=== PATIENT | female | born 1980 ===

== ENCOUNTER 2016-08-22 19:25 | Emergency (ER) | payer MEDICAID ==
--- NOTE | 2016-08-22 19:46 | ED PDOC ---
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 Patient stated while in her bathroom, glass door shattered, causing elbow laceration. Last Tetanus is [place]. Patient has FROM left extremity. No paresthesias, or weakness. Denies other complain. Time/Duration: Prior to Arrival Context: Home Past Medical History - Provider Review Nursing Documentation Reviewed: Yes Family/Social History - Physician Review Nursing Documentation Reviewed: Yes Family/Social History: No Known Family HX Allergies/Home Meds Allergies/Adverse Reactions: Allergies ciprofloxacin [From Cipro] Allergy (Verified 08/22/16 19:49) SWELLING Review of Systems - Review of Systems Constitutional: Normal. absent: Fatigue, Weight Change, Fevers Eyes: Normal ENT: Normal Respiratory: Normal Cardiovascular: Normal Gastrointestinal: Normal Genitourinary Female: Normal Musculoskeletal: Other (Left lateral elbow laceration) Skin: Normal Neurological: Normal Endocrine: Normal Hemo/Lymphatic: Normal Psychiatric: Normal Physical Exam Vital Signs Temp Pulse Resp BP Pulse Ox 08/22/16 20:03 98.2 F 69 16 105/72 98 Temperature: Afebrile Blood Pressure: Normal Pulse: Regular Respiratory Rate: Normal Appearance: Positive for: Well-Appearing, Non-Toxic, Comfortable Pain Distress: None Mental Status: Positive for: Alert and Oriented X 3 - Systems Exam Head: Present: Atraumatic, Normocephalic Pupils: Present: PERRL Extroacular Muscles: Present: EOMI Conjunctiva: Present: Normal Mouth: Present: Moist Mucous Membranes Neck: Present: Normal Range of Motion Upper Extremity: Present: Normal ROM, NORMAL PULSES, Neurovascularly Intact, Capillary Refill < 2s, Other ((+) 1.8 cm , irregular elbow laceration, superficial. no fb visualized.). No: Cyanosis, Tenderness, Erythema Lower Extremity: Present: Normal Inspection, NORMAL PULSES, Normal ROM, Capillary Refill < 2 s Neurological: Present: GCS=15, CN II-XII Intact Skin: Present: Warm, Dry, Normal Color. No: Rashes Psychiatric: Present: Alert, Oriented x 3 Medical Decision Making ED Course and Treatment: 05/18/17 20:37 Re-evaluation. Patient feels better. Discussed results and plan with patient who expresses understanding. All questions answered and there is agreement with the plan to discharge home with instructions. Patient stable for discharge. Return if symptoms persist or worsen. Re-evaluation Time: 20:38 Reassessment Condition: Re-examined, Improved - Medication Orders Current Medication Orders: Discontinued Medications Lidocaine HCl (Lidocaine 1% (20ml)) Confirm Administered Dose 20 ml .ROUTE .STK- MED ONE Stop: 08/22/16 20:18 Tetanus/Reduced Diphtheria/Acell Pertussis (Boostrix Vaccine Inj) 0.5 ml IM .ONCE ONE Stop: 08/22/16 19:49 Last Admin: 08/22/16 20:25 Dose: 0.5 ml - Procedure PROCEDURE NOTE (Text): 08/22/16 20:39 PROCEDURE: LACERATION REPAIR Performed by the emergency provider Location: left lateral elbow Length: 1.8 cm Description: clean wound edges , no foreign bodies Distal CMS: Normal. No deficits. Neurovascularly intact. Anesthesia: Lidocaine 1% without Epi Preparation: The wound was cleaned with NS and [place]. The area was prepped and draped in the usual sterile fashion. Exploration: The wound was explored and no foreign bodies were found. Procedure: The wound was closed with Chromic Gut, 5-0. interrupted. There was good approximation. In total, 3 sutures were used. Post-Procedure: Good closure and hemostasis. The patient tolerated the procedure well and there were no complications. CSM remains intact. Post procedure dressing applied Disposition/Present on Arrival - Present on Arrival Any Indicators Present on Arrival: No History of DVT/PE: No History of Uncontrolled Diabetes: No Urinary Catheter: No History of Decub. Ulcer: No - Disposition Have Diagnosis and Disposition been Completed?: Yes Diagnosis: Laceration Disposition: HOME/ ROUTINE Disposition Time: 20:41 Patient Plan: Discharge Condition: GOOD Discharge Instructions (ExitCare): Laceration (ED) Additional Instructions: Call private doctor for follow up visit in 2-3 days. Keep wound clean and dry for 2 days, then clean wound with soap and water. Return to emergency if wound becomes infected. Sutures are absorbable, so they do not need to be discharge. Prescriptions: Cephalexin [cephalexin] 500 mg PO QID #12 cap Forms: WORK NOTE
[2016-08-22 19:47] VITALS: BMI 20.9
[2016-08-22] MEDS ORDERED: TDAP Vaccine 0.5 mL Syr IM ONE (19:48)
[2016-08-22 20:03] VITALS: BP 105/72; PULSE 69; RESP 16; TEMP 98.2
[2016-08-22] MEDS ORDERED: Lidocaine 1% Inj (20ml) ONE (20:17)
[2016-08-22 20:50] VITALS: O2SAT 99
== END 2016-08-22 20:49 | disposition home or self-care (01) ==
LOC: ED 19:25
DX: S51.012A Laceration without foreign body of left elbow, initial encounter (principal); W25.XXXA Contact with sharp glass, initial encounter; Y93.E8 Activity, other personal hygiene; Y92.002 Bathroom of unspecified non-institutional (private) residence as the place of occurrence of the external cause; Z23 Encounter for immunization

== ENCOUNTER 2016-09-14 21:50 | Emergency (ER) | payer MEDICAID ==
[2016-09-14 21:51] VITALS: BMI 20.9
[2016-09-14 22:34] VITALS: TEMP 98.2
--- NOTE | 2016-09-14 23:04 | ED PDOC ---
Arrival/HPI - General Chief Complaint: Back Pain Time Seen by Provider: 09/14/16 22:33 Historian: Patient - History of Present Illness Narrative History of Present Illness (Text): 09/14/16 23:01 35yo female who present with complaint of left sided posterior and anterior ribs pain. states pain is more on the back. she notes 2weeks history of persistent cough. States the cough improved and then she started having rib pain 3days ago. States she did not take any analgesic. Her pain is usually with deep inspiration, or when she sneeze. Denies chest pain, SOb, diaphoresis, trauma, nausea, vomiting, abdominal pain. Past Medical History - Provider Review Nursing Documentation Reviewed: Yes - Cardiac Hx Cardiac Disorders: No - Pulmonary Hx Respiratory Disorders: No - Neurological Hx Neurological Disorder: No - HEENT Hx HEENT Disorder: No - Renal Hx Renal Disorder: No - Endocrine/Metabolic Hx Endocrine Disorders: No - Hematological/Oncological Hx Blood Disorders: No - Integumentary Hx Dermatological Disorder: No - Musculoskeletal/Rheumatological Hx Musculoskeletal Disorders: No - Gastrointestinal Hx Gastrointestinal Disorders: No - Genitourinary/Gynecological Hx Genitourinary Disorders: No Hx Urinary Tract Infection: Yes - Psychiatric Hx Psychophysiologic Disorder: No Hx Substance Use: No - Surgical History Hx Section: Yes Other/Comment: umbilicus herinal repair - Anesthesia Hx Anesthesia: No Family/Social History - Physician Review Nursing Documentation Reviewed: Yes Family/Social History: Unknown Family HX Smoking Status: Never Smoked Hx Alcohol Use: No Hx Substance Use: No Allergies/Home Meds Allergies/Adverse Reactions: Allergies ciprofloxacin [From Cipro] Allergy (Verified 09/14/16 22:31) SWELLING Review of Systems - Physician Review All systems were reviewed & negative as marked: Yes - Review of Systems Constitutional: Normal Eyes: Normal ENT: Normal Respiratory: Normal Cardiovascular: Normal Gastrointestinal: Normal Genitourinary Female: Normal Musculoskeletal: Arthralgias (Left rib pain) Skin: Normal Neurological: Normal Endocrine: Normal Hemo/Lymphatic: Normal Psychiatric: Normal Physical Exam Vital Signs Reviewed: Yes Vital Signs Temp Pulse Resp BP Pulse Ox 09/14/16 22:31 98.2 F 100 H 24 108/70 100 Temperature: Afebrile Blood Pressure: Normal Pulse: Regular Respiratory Rate: Normal Appearance: Positive for: Well-Appearing, Non-Toxic, Comfortable Pain Distress: None Mental Status: Positive for: Alert and Oriented X 3 - Systems Exam Head: Present: Atraumatic, Normocephalic Pupils: Present: PERRL Extroacular Muscles: Present: EOMI Conjunctiva: Present: Normal Mouth: Present: Moist Mucous Membranes Neck: Present: Normal Range of Motion Respiratory/Chest: Present: Clear to Auscultation, Good Air Exchange, Tender to Palpation (Posterior left rib). No: Respiratory Distress, Accessory Muscle Use , Wheezes, Decreased Breath Sounds, Rales, Retracting, Rhonchi Cardiovascular: Present: Regular Rate and Rhythm, Normal S1, S2. No: Murmurs Abdomen: Present: Normal Bowel Sounds. No: Tenderness, Distention, Peritoneal Signs Back: Present: Normal Inspection Upper Extremity: Present: Normal Inspection. No: Cyanosis, Edema Lower Extremity: Present: Normal Inspection. No: Edema Neurological: Present: GCS=15, CN II-XII Intact, Speech Normal Skin: Present: Warm, Dry, Normal Color. No: Rashes Psychiatric: Present: Alert, Oriented x 3, Normal Insight, Normal Concentration Medical Decision Making ED Course and Treatment: 09/14/16 23:48 Per RN pt declined Toradol and flexeril in ED. she requested Ibuprofen Left ribs/Chest xray - No acute fracture. No PTX Result was DW the pt. she was DC home with a rx of Ibuprofen. Referred to her PMD. Advised TRT ED for any new or worsening symptoms - RAD Interpretation Radiology Orders: 09/14/16 22:56 RIBS LEFT & PA CHEST [RAD] Stat - Medication Orders Current Medication Orders: Discontinued Medications Ibuprofen (Motrin Tab) 600 mg PO STAT STA Stop: 09/14/16 23:04 Last Admin: 09/14/16 23:13 Dose: 600 mg Ketorolac Tromethamine (Toradol) 30 mg IVP STAT STA Stop: 09/14/16 22:57 Last Admin: 09/14/16 23:08 Dose: Not Given Non-Admin Reason: Patient Refused Disposition/Present on Arrival - Present on Arrival Any Indicators Present on Arrival: No History of DVT/PE: No History of Uncontrolled Diabetes: No Urinary Catheter: No History of Decub. Ulcer: No History Surgical Site Infection Following: None - Disposition Have Diagnosis and Disposition been Completed?: Yes Diagnosis: Rib pain Disposition: HOME/ ROUTINE Disposition Time: 23:55 Patient Plan: Discharge Condition: STABLE Discharge Instructions (ExitCare): Chest Pain (ED) Additional Instructions: Follow up with your Doctor Return to ED for any new or worsening symptoms Prescriptions: Ibuprofen [Motrin Tab] 600 mg PO Q6 #20 tab Referrals: [facility] [place] - Follow up with primary
[2016-09-15 00:04] VITALS: BP 116/63; PULSE 95; RESP 16; O2SAT 99
[2016-09-15] MEDS ORDERED: Albuterol-Ipratrop 3 mg / 0.5 (3 ml) UD ONE (01:35)
--- NOTE | 2016-09-15 12:27 | RAD ---
PROCEDURE: Radiographs of the Chest and Left Ribs. HISTORY: ribs pain COMPARISON: None available. TECHNIQUE: Frontal radiograph of the chest and multiple oblique radiographs of the left ribs were obtained. FINDINGS: LEFT RIBS: No fracture or focal lesion visualized. LUNGS: Clear. PLEURA: No pneumothorax or pleural fluid. CARDIOVASCULAR: Normal sized heart. No pulmonary vascular congestion. OTHER FINDINGS: None. IMPRESSION: Unremarkable radiographs of the chest and left ribs. No left rib fracture. No preliminary interpretation rendered by the emergency department physician
== END 2016-09-15 00:05 | disposition home or self-care (01) ==
LOC: ED 21:50
DX: R07.81 Pleurodynia (principal)

== ENCOUNTER 2016-11-26 19:06 | Emergency (ER) | payer MEDICAID ==
[2016-11-26 19:12] VITALS: BMI 20.3
[2016-11-26 19:20] VITALS: RESP 18; O2SAT 100
[2016-11-26 20:53] LABS: BASO # 0.02 K/mm3 (0.0-2.0); BASO % 0.4 % (0.0-3.0); EOS # 0.1 (0.0-0.7); EOS % 2.8 % (1.5-5.0); GRAN # 1.71 (1.4-6.5); GRAN % 36.5 % (50.0-68.0); LYMPH # 2.4 (1.2-3.4); LYMPH % 50.9 % (22.0-35.0); MEAN CELL VOLUME 88.9 fl (80.0-105.0); MEAN CORPUSCULAR HEMOGLOBIN 31.1 pg (25.0-35.0); MEAN PLATELET VOLUME 9.7 fl (7.0-11.0); MONO # 0.4 (0.1-0.6); MONO % 9.4 % (1.0-6.0); RED CELL DISTRIBUTION WIDTH 12.1 % (11.5-14.5); WHITE BLOOD COUNT 4.7 10^3/ul (4.5-11.0)
[2016-11-26 21:05] LABS: ALB/GLOB RATIO 1.4 (1.1-1.8); ALKALINE PHOSPHATASE 54 U/L (38-133); ALT/SGPT 33 U/L (7-56); AST/SGOT 25 U/L (15-39); BLOOD UREA NITROGEN 9 mg/dL (7-21); CALCIUM 8.9 mg/dL (8.4-10.5); CARBON DIOXIDE 27 mmol/L (21-33); CHLORIDE 103 mmol/L (98-107); GFR AFRICAN-AMERICAN > 60; GLUCOSE,RANDOM 83 mg/dL (70-110); POTASSIUM 3.7 mmol/L (3.6-5.0); SODIUM 140 mmol/L (132-148); TOTAL PROTEIN 6.9 g/dL (5.8-8.3)
[2016-11-26] MEDS ORDERED: Iohexol 350 MG/100 ML VIAL ONE (21:56)
[2016-11-26 22:16] VITALS: BP 107/73
--- NOTE | 2016-11-26 22:25 | ED PDOC ---
Arrival/HPI - General Chief Complaint: Cough, Cold, Congestion Time Seen by Provider: 11/26/16 19:45 Historian: Patient - History of Present Illness Narrative History of Present Illness (Text): 11/26/16 20:30 35 year old female who presents to the Emergency department complaining of cough x 2 days, and palpitations, and shortness of breath that has been ongoing for the past 3 days. Patient states 3 weeks prior she had URI symptoms which resolved after 1 week. Patient states she developed a cough again after a few days. Patient states over the past 3 days she has been experiencing palpitations , and shortness of breath. Pt states symptoms are worse in the mornings. pt c/o post nasal drip sensation. pt denies CP or SOB at present time. pt states cough is dry.No medications taken for pain at home. Patient denies any fever, chills , dizziness, weakness, abdominal pain, sick contacts at home, recent travel, or any oral contraceptive use. Time/Duration: < week (3 days) Symptom Onset: Gradual Symptom Course: Intermittent Quality: Unable to Describe Severity Level: 2 Activities at Onset: Rest, Light Context: Home Past Medical History - Provider Review Nursing Documentation Reviewed: Yes - Travel History Have you recently traveled outside [place] w/in the past 3 mons?: No - Infectious Disease Hx of Infectious Diseases: None - Tetanus Immunization Tetanus Immunization: Unknown - Cardiac Hx Cardiac Disorders: No - Pulmonary Hx Respiratory Disorders: No - Neurological Hx Neurological Disorder: No - HEENT Hx HEENT Disorder: No - Renal Hx Renal Disorder: No - Endocrine/Metabolic Hx Endocrine Disorders: No - Hematological/Oncological Hx Blood Disorders: No - Integumentary Hx Dermatological Disorder: No - Musculoskeletal/Rheumatological Hx Musculoskeletal Disorders: No - Gastrointestinal Hx Gastrointestinal Disorders: No - Genitourinary/Gynecological Hx Genitourinary Disorders: No Hx Urinary Tract Infection: Yes - Psychiatric Hx Psychophysiologic Disorder: No Hx Substance Use: No - Surgical History Hx Section: Yes Other/Comment: umbilicus herinal repair - Anesthesia Hx Anesthesia: No Family/Social History - Physician Review Nursing Documentation Reviewed: Yes Family/Social History: Unknown Family HX Smoking Status: Never Smoked Hx Alcohol Use: No Hx Substance Use: No Allergies/Home Meds Allergies/Adverse Reactions: Allergies ciprofloxacin [From Cipro] Allergy (Verified 09/14/16 22:31) SWELLING Review of Systems - Physician Review All systems were reviewed & negative as marked: Yes - Review of Systems Constitutional: absent: Fatigue, Fevers ENT: Other (+ post nasal drip sensation). absent: Sore Throat, Sinus Congestion Respiratory: SOB, Cough Cardiovascular: Palpitations. absent: Chest Pain, Syncope Gastrointestinal: Normal. absent: Abdominal Pain, Diarrhea, Nausea, Vomiting Genitourinary Female: Normal. absent: Dysuria, Frequency, Hematuria, Urine Output Changes Musculoskeletal: Normal. absent: Arthralgias, Back Pain, Neck Pain Skin: Normal. absent: Rash Neurological: Normal. absent: Headache, Dizziness Psychiatric: Normal. absent: Anxiety, Depression, Suicidal Ideation Physical Exam Vital Signs Reviewed: Yes Vital Signs Temp Pulse Resp BP Pulse Ox 11/26/16 23:51 98.6 F 88 18 100 11/26/16 22:14 93 H 18 107/73 100 11/26/16 19:19 98.9 F 18 L 18 119/79 100 Temperature: Afebrile Blood Pressure: Normal Pulse: Regular Respiratory Rate: Normal Appearance: Positive for: Well-Appearing, Non-Toxic, Comfortable Pain Distress: None Mental Status: Positive for: Alert and Oriented X 3 - Systems Exam Head: Present: Atraumatic, Normocephalic Pupils: Present: PERRL Extroacular Muscles: Present: EOMI Conjunctiva: Present: Normal Ears: Present: Normal, NORMAL TM, Normal Canal. No: Erythema, TM Bulging, Fluid , TM Perf Mouth: Present: Moist Mucous Membranes Pharnyx: Present: Normal, Other (+ mucus noted in posterior pharynx). No: ERYTHEMA, EXUDATE, TONSILS ENLARGED, Peritonsilar Swelling, Uvular Deviation, Muffled/Hoarse Voice, Strider, Soft Palate/Uvular Edema Nose (External): Present: Atraumatic Nose (Internal): Present: Normal Inspection Neck: Present: Normal Range of Motion, Trachea Midline. No: Meningeal Signs, MIDLINE TENDERNESS, Paraspinal Tenderness, Lymphadenopathy Respiratory/Chest: Present: Clear to Auscultation, Good Air Exchange. No: Respiratory Distress, Accessory Muscle Use, Wheezes, Decreased Breath Sounds, Rales, Retracting, Rhonchi, Tachypneic, Tender to Palpation Cardiovascular: Present: Regular Rate and Rhythm, Normal S1, S2. No: Murmurs, Tachycardic Abdomen: Present: Normal Bowel Sounds. No: Tenderness, Distention, Peritoneal Signs Back: Present: Normal Inspection. No: CVA Tenderness, Midline Tenderness, Paraspinal Tenderness, Other (No flank tenderness) Lower Extremity: Present: Normal Inspection, Normal ROM. No: Edema, CALF TENDERNESS Neurological: Present: GCS=15, Speech Normal Skin: Present: Warm, Dry, Normal Color. No: Rashes Psychiatric: Present: Alert, Oriented x 3 Medical Decision Making ED Course and Treatment: 11/26/16 20:30 Impression: 35 year old female complaining of cough x 2 weeks with intermittent shortness of breath x3 days. Plan: -- EKG: -- CBC wnl -- CMP wnl -- D-dimer: 0.93 -- Reassess and disposition Progress Notes: Reviewed EKG, NSR at 75 bpm. Sinus arrhythmia. Normal axis. No ST-segment elevations or depressions, no T-wave inversions. Chest X-ray shows no active disease. D-dimer elevated at 0.93. CTA Chest ordered, r/o PE. 11/27/16 00:24 CTA; FINDINGS: Pulmonary arteries: No pulmonary embolism. Aorta: No thoracic aortic aneurysm. Lungs: No mass. No consolidation. Pleural spaces: No significant effusion. No pneumothorax. Heart: No cardiomegaly. No significant pericardial effusion. No evidence of right heart dysfunction. Bones: No acute fracture. Lymph nodes: No pathologically enlarged lymph nodes. IMPRESSION: No pulmonary embolism. The lungs are clear. pt reassessment; pt with stable vitals. no tachycardia; no cp or sob at present time. will treat patient with zithromax for cough. will give albuterol rx and start patient on flonase. advised f/u with PMD and sap bobj developer. I discussed all results in depth with the patient and advised follow-up with primary care physician and sap bobj developer within the next 2 days. Advised taking antibiotic as prescribed and using albuterol inhaler as needed. I've advised the patient to use Flonase 2 sprays each nostril once daily and advised immediate return is symptoms worsen persist or if new concerning symptoms develop Patient verbalizes understanding of discharge instructions and need for immediate followup. all aspects of this case were discussed the attending of record. Impression: Cough, shortness of breath Zithromax daily 4 days Flonase 2 sprays each nostril once daily Albuterol 2 puffs every 4-6 hours as needed for cough Follow-up the primary care physician within the next 2 days Follow-up with a sap bobj developer within the next 2 days Return immediately if symptoms worsen or persist or if new concerning symptoms develop - Lab Interpretations Lab Results: 11/26/16 20:40 11/26/16 20:40 Lab Results 11/26/16 20:40: WBC 4.7, RBC 4.05, Hgb 12.6, Hct 36.0, MCV 88.9, MCH 31.1, MCHC 35.0, RDW 12.1, Plt Count 181, MPV 9.7, Gran % 36.5 L, Lymph % (Auto) 50.9 H, [place] % (Auto) 9.4 H, Eos % (Auto) 2.8, Baso % (Auto) 0.4, Gran # 1.71, Lymph # 2.4, [place] # 0.4, Eos # 0.1, Baso # 0.02 11/26/16 20:40: Sodium 140, Potassium 3.7, Chloride 103, Carbon Dioxide 27, Anion Gap 14, BUN 9, Creatinine 1.2, Est GFR ( Amer) > 60, Est GFR (Non- Af Amer) 51, Random Glucose 83, Calcium 8.9, Total Bilirubin 1.0, AST 25, ALT 33 , Alkaline Phosphatase 54, Total Protein 6.9, Albumin 4.0, Globulin 2.9, Albumin /Globulin Ratio 1.4 11/26/16 20:40: D-Dimer, Quantitative 0.93 H I have reviewed the lab results: Yes - RAD Interpretation Radiology Orders: 11/26/16 20:32 CHEST TWO VIEWS (PA/LAT) [RAD] Stat 11/26/16 21:39 ANGIO CHEST PE PROTOCOL [CT] Stat Electrician Substation Supervisor: ED Physician - EKG Interpretation Interpreted by ED Physician: Yes Type: 12 lead EKG - Medication Orders Current Medication Orders: Azithromycin (Zithromax) 500 mg PO STAT STA PRN Reason: Protocol Stop: 11/27/16 00:18 Discontinued Medications Iohexol (Omnipaque 350 100 Ml) Confirm Administered Dose 350 mg .ROUTE .STK-MED ONE Stop: 11/26/16 21:57 - Scribe Statement The provider has reviewed the documentation as recorded by the Scribpeterson Rothn Provider Scribe Attestation: All medical record entries made by the Scribe were at my direction and personally dictated by me. I have reviewed the chart and agree that the record accurately reflects my personal performance of the history, physical exam, medical decision making, and the department course for this patient. I have also personally directed, reviewed, and agree with the discharge instructions and disposition. Disposition/Present on Arrival - Present on Arrival Any Indicators Present on Arrival: No History of DVT/PE: No History of Uncontrolled Diabetes: No Urinary Catheter: No History of Decub. Ulcer: No History Surgical Site Infection Following: None - Disposition Have Diagnosis and Disposition been Completed?: Yes Diagnosis: Cough, Shortness of breath Disposition: HOME/ ROUTINE Disposition Time: 00:29 Patient Plan: Discharge Condition: GOOD Discharge Instructions (ExitCare): Acute Cough (ED) Additional Instructions: Zithromax daily 4 days Flonase 2 sprays each nostril once daily Albuterol 2 puffs every 4-6 hours as needed for cough Follow-up the primary care physician within the next 2 days Follow-up with a sap bobj developer within the next 2 days Return immediately if symptoms worsen or persist or if new concerning symptoms develop Prescriptions: Albuterol HFA [Ventolin HFA 90 mcg/actuation (8 g)] 2 puff IH [id number] PRN #1 inhaler PRN Reason: Cough Azithromycin [Zithromax] 250 mg PO DAILY #4 tab Fluticasone Nasal [Flonase] 2 spr NS DAILY #1 spr Referrals: Bertha Plunkett MD [Primary Care Provider] - Follow up with primary Bam Graham MD [Staff Provider] - Follow up with primary Forms: [id number] (Turkmen), WORK NOTE
--- NOTE | 2016-11-26 23:40 | CT ---
EXAM: CT Angiography Chest With Intravenous Contrast CLINICAL HISTORY: 35 years old, female; Abnormal findings; Abnormal diagnostic tests; Elevated d-dimer; Additional info: Cp SOB cough TECHNIQUE: Axial computed tomographic angiography images of the chest with intravenous contrast using pulmonary embolism protocol. All CT scans at this facility use one or more dose reduction techniques, viz.: automated exposure control; ma/kV adjustment per patient size (including targeted exams where dose is matched to indication; i.e. head); or iterative reconstruction technique. MIP reconstructed images were created and reviewed. Coronal and sagittal reformatted images were created and reviewed. CONTRAST: 100 mL of OMNI 350 administered intravenously. COMPARISON: None FINDINGS: Pulmonary arteries: No pulmonary embolism. Aorta: No thoracic aortic aneurysm. Lungs: No mass. No consolidation. Pleural spaces: No significant effusion. No pneumothorax. Heart: No cardiomegaly. No significant pericardial effusion. No evidence of right heart dysfunction. Bones: No acute fracture. Lymph nodes: No pathologically enlarged lymph nodes. IMPRESSION: No pulmonary embolism. The lungs are clear.
[2016-11-26 23:52] VITALS: PULSE 88; TEMP 98.6
--- NOTE | 2016-11-27 07:19 | RAD ---
HISTORY: cough/sob x 3 weeks COMPARISON: 09/14/2016 TECHNIQUE: Chest PA and lateral FINDINGS: LUNGS: No active pulmonary disease. PLEURA: No significant pleural effusion identified. No pneumothorax apparent. CARDIOVASCULAR: Normal. OSSEOUS STRUCTURES: Dextroscoliosis VISUALIZED UPPER ABDOMEN: Normal. OTHER FINDINGS: None. IMPRESSION: No active disease.
--- NOTE | 2016-11-27 17:14 | CARD ---
APPROVED REPORT EKG Measurement Heart [id number] <Conclusion> Normal sinus rhythm with sinus arrhythmia Normal ECG
== END 2016-11-27 00:46 | disposition home or self-care (01) ==
LOC: ED 19:06
DX: R05 Cough (principal); R06.02 Shortness of breath
CPT/HCPCS: 71020; 71275; 80053; 85025; 85378; 93005; 99283; Q9967

== ENCOUNTER 2016-11-28 05:00 | Observation (INO) | payer MEDICAID ==
[2016-11-28 05:00] VITALS: BMI 20.3
--- NOTE | 2016-11-28 05:24 | ED PDOC ---
Arrival/HPI - General Chief Complaint: Palpitations Time Seen by Provider: 11/28/16 05:05 Historian: Patient - History of Present Illness Narrative History of Present Illness (Text): 11/28/16 05:20 Cm Marquez is a 35 year old female who presents to the Emergency department complaining of palpitations/chest discomfort/near-syncope tonight. Patient states she woke up tonight with generalized malaise. Patient states she got up to drink water and began feeling palpitations , vague chest discomfort followed by near syncopal event. Patient states was seen in the Emergency department on 11/26/2016 for similar complaints and discharged home. Patient had a full workup and CTA Chest performed, which was negative for PE. Patient denies any fever, chills, shortness of breath, nausea, vomiting, diarrhea, urinary symptoms, back pain, neck pain, headache, dizziness, or any other complaints. Symptom Onset: Gradual Symptom Course: Unchanged Activities at Onset: Light, Sleeping Context: Home Past Medical History - Provider Review Nursing Documentation Reviewed: Yes - Infectious Disease Hx of Infectious Diseases: None - Tetanus Immunization Tetanus Immunization: Unknown - Reproductive Menopause: No - Cardiac Hx Cardiac Disorders: No - Pulmonary Hx Respiratory Disorders: No - Neurological Hx Neurological Disorder: No - HEENT Hx HEENT Disorder: No - Renal Hx Renal Disorder: No - Endocrine/Metabolic Hx Endocrine Disorders: No - Hematological/Oncological Hx Blood Disorders: No - Integumentary Hx Dermatological Disorder: No - Musculoskeletal/Rheumatological Hx Musculoskeletal Disorders: No - Gastrointestinal Hx Gastrointestinal Disorders: No - Genitourinary/Gynecological Hx Genitourinary Disorders: No Hx Urinary Tract Infection: Yes - Psychiatric Hx Psychophysiologic Disorder: No Hx Substance Use: No - Surgical History Hx Section: Yes Other/Comment: umbilicus herinal repair - Anesthesia Hx Anesthesia: No Family/Social History - Physician Review Nursing Documentation Reviewed: Yes Family/Social History: Unknown Family HX Smoking Status: Never Smoked Hx Alcohol Use: No Hx Substance Use: No Allergies/Home Meds Allergies/Adverse Reactions: Allergies ciprofloxacin [From Cipro] Allergy (Verified 11/28/16 06:07) SWELLING Home Medications: Home Meds Medication Instructions Recorded Confirmed No Known Home Med 11/28/16 11/28/16 Review of Systems - Physician Review All systems were reviewed & negative as marked: Yes - Review of Systems Constitutional: Other (+generalized malaise). absent: Fevers Eyes: Normal ENT: Normal Respiratory: Normal. absent: SOB, Cough Cardiovascular: Chest Pain (+vague chest discomfort), Palpitations, Other (+near -syncope) Gastrointestinal: Normal. absent: Abdominal Pain, Diarrhea, Nausea, Vomiting Genitourinary Female: Normal. absent: Dysuria, Frequency, Hematuria, Urine Output Changes Musculoskeletal: Normal. absent: Back Pain, Neck Pain Skin: Normal. absent: Rash Neurological: Normal. absent: Headache, Dizziness Endocrine: Normal Hemo/Lymphatic: Normal Psychiatric: Normal Physical Exam Vital Signs Reviewed: Yes Vital Signs Temp Pulse Resp BP Pulse Ox 11/28/16 05:20 20 100 11/28/16 05:08 97.7 F 85 18 117/86 100 Temperature: Afebrile Blood Pressure: Normal Pulse: Regular Respiratory Rate: Normal Appearance: Positive for: Well-Appearing, Non-Toxic, Comfortable Pain Distress: None Mental Status: Positive for: Alert and Oriented X 3 - Systems Exam Head: Present: Atraumatic, Normocephalic Pupils: Present: PERRL Extroacular Muscles: Present: EOMI Conjunctiva: Present: Normal Mouth: Present: Moist Mucous Membranes Neck: Present: Normal Range of Motion Respiratory/Chest: Present: Clear to Auscultation, Good Air Exchange. No: Respiratory Distress, Accessory Muscle Use Cardiovascular: Present: Regular Rate and Rhythm, Normal S1, S2. No: Murmurs Abdomen: Present: Normal Bowel Sounds. No: Tenderness, Distention, Peritoneal Signs Back: Present: Normal Inspection Upper Extremity: Present: Normal Inspection. No: Cyanosis, Edema Lower Extremity: Present: Normal Inspection. No: Edema Neurological: Present: GCS=15, CN II-XII Intact, Speech Normal Skin: Present: Warm, Dry, Normal Color. No: Rashes Psychiatric: Present: Alert, Oriented x 3, Normal Insight, Normal Concentration Medical Decision Making ED Course and Treatment: 11/28/16 05:20 Impression: 35 year old female complaining of near-syncope, generalized malaise, vague chest discomfort, and palpitations tonight. Plan: -- EKG -- CXR -- Labs, cardiac enzymes -- Reassess and disposition Prior Visits: Notes and results from previous visits were reviewed. On 11/26/2016, pt was seen in the Emergency department for palpitaions, shortness of breath, and cough. Pt had CTA Chest performed which was negative for PE. Pt was d/c home on Zithromax, Flonase, and Ventolin. Progress Notes: Reviewed EKG, NSR at [address]. No ST-segment elevations or depressions, no T-wave inversions. 11/28/16 06:54 Pt.with second ER visit in so many days.Etiology of pts. symptoms unclear.Will place on observation hospitalist service.plant operations vice president made aware.Hospitalist to be notified. - Lab Interpretations Lab Results: 11/28/16 05:30 11/28/16 05:30 Lab Results 11/28/16 05:30: WBC 3.8 L, RBC 4.13, Hgb 12.5, Hct 36.6, MCV 88.6, MCH 30.3, MCHC 34.2, RDW 12.2, Plt Count 167, MPV 9.6 11/28/16 05:30: Sodium 142, Potassium 3.7, Chloride 107, Carbon Dioxide 26, Anion Gap 13, BUN 12, Creatinine 0.7, Est GFR ( Amer) > 60, Est GFR (Non- Af Amer) > 60, Random Glucose 90, Calcium 8.9, Total Bilirubin 1.3, AST 28, ALT 27, Alkaline Phosphatase 59, Lactate Dehydrogenase 477, Total Creatine Kinase 55 , Troponin I < 0.01, Total Protein 7.0, Albumin 4.2, Globulin 2.9, Albumin/ Globulin Ratio 1.4 11/28/16 05:30: PT 11.6, INR 1.07, APTT 33.1 H - RAD Interpretation Narrative RAD Interpretations (Text): 11/28/16 06:42 CXR- No acute process Radiology Orders: 11/28/16 05:25 CHEST PORTABLE [RAD] [employer] Program Director: ED Physician - EKG Interpretation Interpreted by ED Physician: Yes Type: 12 lead EKG - Scribe Statement The provider has reviewed the documentation as recorded by the Emilee Rogers Provider Scribe Attestation: All medical record entries made by the Scribe were at my direction and personally dictated by me. I have reviewed the chart and agree that the record accurately reflects my personal performance of the history, physical exam, medical decision making, and the department course for this patient. I have also personally directed, reviewed, and agree with the discharge instructions and disposition. Disposition/Present on Arrival - Present on Arrival Any Indicators Present on Arrival: No History of DVT/PE: No History of Uncontrolled Diabetes: No Urinary Catheter: No History of Decub. Ulcer: No History Surgical Site Infection Following: Obstetrical/Gynecological Surgery - Disposition Have Diagnosis and Disposition been Completed?: Yes Diagnosis: Palpitations, Chest pain, Near syncope Disposition: HOSPITALIZED Disposition Time: 07:02 Patient Plan: Observation Patient Problems: Current Active Problems Problem Status Onset Chest pain Acute Near syncope Acute Palpitations Acute Condition: STABLE Discharge Instructions (ExitCare): Chest Pain (ED) Referrals: Bertha Plunkett MD [Primary Care Provider] - Follow up with primary Forms: [employer] ([place])
[2016-11-28 05:45] LABS: HEMATOCRIT 36.6 % (36.0-48.0); MEAN CELL VOLUME 88.6 fl (80.0-105.0); MEAN CORPUSCULAR HEMOGLOBIN 30.3 pg (25.0-35.0); MEAN CORPUSCULAR HGB CONC 34.2 g/dl (31.0-37.0); MEAN PLATELET VOLUME 9.6 fl (7.0-11.0); RED CELL DISTRIBUTION WIDTH 12.2 % (11.5-14.5); WHITE BLOOD COUNT 3.8 10^3/ul (4.5-11.0)
[2016-11-28 05:51] LABS: INR 1.07 (0.93-1.08); PARTIAL THROMBOPLASTIN TIME 33.1 Seconds (23.7-30.8)
[2016-11-28 06:01] LABS: ALB/GLOB RATIO 1.4 (1.1-1.8); ALKALINE PHOSPHATASE 59 U/L (38-133); ALT/SGPT 27 U/L (7-56); AST/SGOT 28 U/L (15-39); BILIRUBIN,TOTAL 1.3 mg/dL (0.2-1.3); BLOOD UREA NITROGEN 12 mg/dL (7-21); CALCIUM 8.9 mg/dL (8.4-10.5); CARBON DIOXIDE 26 mmol/L (21-33); CHLORIDE 107 mmol/L (98-107); GFR AFRICAN-AMERICAN > 60; GLUCOSE,RANDOM 90 mg/dL (70-110); POTASSIUM 3.7 mmol/L (3.6-5.0); SODIUM 142 mmol/L (132-148)
[2016-11-28 06:15] LABS: TROPONIN I < 0.01 ng/mL
--- NOTE | 2016-11-28 07:36 | RAD ---
HISTORY: palpitations COMPARISON: 11/26/2016 FINDINGS: LUNGS: No active pulmonary disease. PLEURA: No significant pleural effusion identified, no pneumothorax apparent. CARDIOVASCULAR: Normal. OSSEOUS STRUCTURES: Thoracic dextroscoliosis. VISUALIZED UPPER ABDOMEN: Normal. OTHER FINDINGS: None. IMPRESSION: No active disease.
[2016-11-28 08:13] LABS: CHOLESTEROL 174 mg/dL (130-200)
[2016-11-28 12:20] LABS: TROPONIN I < 0.01 ng/mL
[2016-11-28] MEDS ORDERED: Pneumococcal 23-Valent Vaccine IM ONE (14:14)
--- NOTE | 2016-11-28 16:15 | CP.PCM.HP ---
<Bobbi Latham - Last Filed: 11/28/16 19:35> History of Present Illness - History of Present Illness History of Present Illness: CC: Near Syncope HPI: Pt is a 35 year old female who was brought to the ED by ambulance after she had a near-syncopal episode at home. Patient states that last night, she woke up feeling "weird", with generalized weakness, and had an episode of blurry vision, a cold feeling in the chest, palpitations, ringing in her ears, nausea, and dry heaving. Her noted that she looked pale, and he called the ambulance. Patient states that since being in the hospital, she now feels better, and no longer feels like she is going to pass out or have palpitations. Denies current nausea, vomiting, diarrhea, SOB, weakness, or paresthesias. Patient was previously seen in [facility] ED 2 days ago for similar symptoms, had a positive d-dimer test, and subsequently had negative CTA, EKG, and CXR. She reported a 3 week history of cold symptoms, 2 week history of cough, 3 day history of increasing SOB on exertion, and she was started on Zithromax prior to discharge from the ED at that time. She states that her cough has been improving since starting the Zithromax. Patient reports history of syncope once in the past, and had a negative medical workup at that time. She states that she last had an echo last year as part of her pre-operative evaluation prior to an umbilical hernia repair. She states that she has had sensations of shivering and dry mouth for months. PMD: NOS PMHX: Migraines, recurrent UTI (previously treated on terminal manager antibiotics, none since July) PSHX: , umbilical hernia repair 2016 OBGYN Hx: P2. LMP current. Has h/o heavy menstrual periods, Hgb followed by PMD. Meds: None, other than Zithromax All: Cipro (extremity cramping) Family hx: father has HTN and obesity. Denies asthma or anxiety. Social: - Denies smoking, EtOH, or recreational drugs - Lives with and 2 children - Eats well balanced diet ROS: General: Denies fever, (+) shivering HEENT: (+) 3 week h/o cold symptoms, (+) 2 week h/o dry cough, denies sore throat. CV: (+) palpitations. Denies chest pain. Respiratory: (+) SOB. GI: (+) Nausea. Denies abdominal pain, vomiting, diarrhea : Denies recent burning or dysuria Extremities: (+) Cold extremities. Denies extremity edema. Endo: Denies recent weight loss, polyphagia, polyuria Neuro: No focal symptoms, no headache, no dizziness Psych: Denies anxiety or depression PE: General: Patient is a young female, AAOx3, in mild anxious distress Skin: Warm, dry HEENT: No conjunctival pallor. PERRL, EOMI. No nasal erythema. Mucous membranes moist. Neck: No tender lymphadenopathy CV: Regular rate and rhythm, no murmurs, gallops, or rubs Respiratory: Lungs CTA bilaterally, no wheezes, rales, or rhonchi GI: Soft, nondistended, nontender. (+) bowel sounds in all 4 quadrants. Extremities: No LE edema. Good distal pulses. Neuro: Pt is speaking in full sentences. CN2-12 intact. 5/5 strength in all extremities. Psych: Normal affect and mood. Present on Admission - Present on Admission Any Indicators Present on Admission: No History of DVT/PE: No History of Uncontrolled Diabetes: No Urinary Catheter: No Decubitus Ulcer Present: No Past Patient History - Infectious Disease Hx of Infectious Diseases: None - Tetanus Immunizations Tetanus Immunization: Unknown - Past Social History Smoking Status: Never Smoked - CARDIAC Hx Cardiac Disorders: No - PULMONARY Hx Respiratory Disorders: No - NEUROLOGICAL Hx Neurological Disorder: No - HEENT Hx HEENT Problems: No - RENAL Hx Chronic Kidney Disease: No - ENDOCRINE/METABOLIC Hx Endocrine Disorders: No - HEMATOLOGICAL/ONCOLOGICAL Hx Blood Disorders: No - INTEGUMENTARY Hx Dermatological Problems: No - MUSCULOSKELETAL/RHEUMATOLOGICAL Hx Falls: No - GASTROINTESTINAL Hx Gastrointestinal Disorders: No - GENITOURINARY/GYNECOLOGICAL Hx Genitourinary Disorders: No Hx Urinary Tract Infection: Yes - PSYCHIATRIC Hx Substance Use: No - SURGICAL HISTORY Hx Section: Yes Other/Comment: umbilicus herinal repair - ANESTHESIA Hx Anesthesia: No Meds Allergies/Adverse Reactions: Allergies Allergy/AdvReac Type Severity Reaction Status Date / Time ciprofloxacin [From Cipro] Allergy SWELLING Verified 11/28/16 11:43 Results - Vital Signs Recent Vital Signs: Last Vital Signs Temp 97.7 F 11/28/16 13:53 Pulse 112 H 11/28/16 13:53 Resp 18 11/28/16 13:53 BP 105/80 11/28/16 13:53 Pulse Ox 99 11/28/16 10:17 - Labs Result Diagrams: 11/28/16 05:30 11/28/16 05:30 Labs: Laboratory Results - last 24 hr 11/28/16 11/28/16 11/28/16 09:54 11:49 11:49 Lactate Dehydrogenase 501 Total Creatine Kinase 50 Troponin I < 0.01 TSH 3rd Generation 2.16 Urine Opiates Screen Negative Urine Methadone Screen Negative Ur Barbiturates Screen Negative Ur Phencyclidine Scrn Negative Ur Amphetamines Screen Negative U Benzodiazepines Scrn Negative U Oth Cocaine Metabols Negative U Cannabinoids Screen Negative Assessment & Plan - Assessment and Plan (Free Text) Assessment: 35 F with near-syncope and palpitations PMH Migraines, resolved recurrent UTI Plan: 1. Near syncope - orthostatics TSH 2.16 Lipid panel TG 127 Cholesterol 174 LDL 102 HDL 42 Diet: HHD 2. Palpitations - reviewed EKG, NSR today - admit to telemetry - cardiac monitoring Troponin I negative - f/u echocardiogram Urine Tox negative - Consult cardiology: Dr. Wood 3. Recent respiratory illness, SOB - reviewed recent CTA, CXR, doppler US of LE, no indication for repeat studies at this time - Finish azithromycin (home meds) DVT/GI PPX SCD/Protonix - Date & Time Date: 11/28/16 Time: 14:00 <Kristian Pitts - Last Filed: 11/29/16 07:51> Results - Vital Signs Recent Vital Signs: Last Vital Signs Temp 97.6 F 11/29/16 06:00 Pulse 90 11/29/16 06:00 Resp 20 11/29/16 06:00 BP 116/68 11/29/16 06:00 Pulse Ox 100 11/29/16 06:00 - Labs Result Diagrams: 11/29/16 05:30 11/29/16 05:30 Labs: Laboratory Results - last 24 hr 11/28/16 11/28/16 11/28/16 09:54 11:49 11:49 WBC RBC Hgb Hct MCV MCH MCHC RDW Plt Count MPV Gran % Lymph % (Auto) Winn % (Auto) Eos % (Auto) Baso % (Auto) Gran # Lymph # Winn # Eos # Baso # Sodium Potassium Chloride Carbon Dioxide Anion Gap BUN Creatinine Est GFR ( Amer) Est GFR (Non-Af Amer) Random Glucose Calcium Total Bilirubin AST ALT Alkaline Phosphatase Lactate Dehydrogenase 501 Total Creatine Kinase 50 Troponin I < 0.01 Total Protein Albumin Globulin Albumin/Globulin Ratio TSH 3rd Generation 2.16 Urine Opiates Screen Negative Urine Methadone Screen Negative Ur Barbiturates Screen Negative Ur Phencyclidine Scrn Negative Ur Amphetamines Screen Negative U Benzodiazepines Scrn Negative U Oth Cocaine Metabols Negative U Cannabinoids Screen Negative 11/28/16 11/29/16 11/29/16 17:45 05:30 05:30 WBC 3.9 L RBC 4.38 Hgb 13.3 Hct 38.8 MCV 88.6 MCH 30.4 MCHC 34.3 RDW 12.3 Plt Count 178 MPV 9.6 Gran % 37.3 L Lymph % (Auto) 45.7 H Winn % (Auto) 12.9 H Eos % (Auto) 3.3 Baso % (Auto) 0.8 Gran # 1.47 Lymph # 1.8 Winn # 0.5 Eos # 0.1 Baso # 0.03 Sodium 140 Potassium 4.0 Chloride 106 Carbon Dioxide 25 Anion Gap 13 BUN 10 Creatinine 0.7 Est GFR ( Amer) > 60 Est GFR (Non-Af Amer) > 60 Random Glucose 96 Calcium 9.0 Total Bilirubin 1.6 H AST 22 ALT 30 Alkaline Phosphatase 48 Lactate Dehydrogenase 499 Total Creatine Kinase 37 Troponin I < 0.01 Total Protein 6.9 Albumin 4.0 Globulin 2.9 Albumin/Globulin Ratio 1.4 TSH 3rd Generation Urine Opiates Screen Urine Methadone Screen Ur Barbiturates Screen Ur Phencyclidine Scrn Ur Amphetamines Screen U Benzodiazepines Scrn U Oth Cocaine Metabols U Cannabinoids Screen Attending/Attestation - Attestation I have personally seen and examined this patient.: Yes I have fully participated in the care of the patient.: Yes I have reviewed all pertinent clinical information: Yes Notes (Text): 11/28/16 35 year old female who presents with complaint of chest pain, palpitations and near syncopal episode. Serial cardiac enzymes and echocardiogram are ordered. Cardiology evaluation is requested. Patient was prescribed azithromycin for recent URI symptoms. Kristian Pitts MD Hospitalist.
[2016-11-28 17:24] VITALS: RESP 20
[2016-11-28 18:37] LABS: TROPONIN I < 0.01 ng/mL
--- NOTE | 2016-11-28 19:33 | CARD ---
APPROVED REPORT EXAM: Two-dimensional and M-mode echocardiogram with Doppler and color Doppler. INDICATION Dyspnea 2D DIMENSIONS Left Atrium (2D)3.6 (1.6-4.0cm)IVSd0.8 (0.7-1.1cm) LVDd3.5 (3.9-5.9cm)PWd0.7 (0.7-1.1cm) LVDs2.5 (2.5-4.0cm)FS (%) 28.1 % LVEF (%)55.4 (>50%) M-Mode DIMENSIONS Aortic Root2.50 (2.2-3.7cm)Aortic Cusp Exc.1.70 (1.5-2.0cm) Aortic Valve AoV Peak Auxfowre416.0cm/Lu Peak GR.6mmHg Mitral Valve MV E Drtefbxy31.2cm/sMV A Wgqhpniq37.8cm/sE/A ratio1.1 TDI Lateral E' Peak V18.80cm/sMedial E' Peak V11.30cm/sE/Lateral E'3.2 E/Medial E'5.3 Pulmonary Valve PV Peak Qubikuhs95.7cm/sPV Peak Grad.2mmHg Tricuspid Valve TR Peak Pzunchyx931iw/sRAP [id number] Peak Gr.21mmHg [id number] LEFT VENTRICLE The left ventricle is normal size. There is normal left ventricular wall thickness. The left ventricular function is normal. The left ventricular ejection fraction is within the normal range. There is normal LV segmental wall motion. The left ventricular diastolic function is normal. RIGHT VENTRICLE The right ventricle is normal size. There is normal right ventricular wall thickness. The right ventricular systolic function is normal. ATRIA The left atrium size is normal. The right atrium size is normal. AORTIC VALVE The aortic valve is normal in structure. No aortic regurgitation is present. MITRAL VALVE The mitral valve is mildly thickened. There is no mitral valve regurgitation noted. There is no mitral valve stenosis. TRICUSPID VALVE There is mild tricuspid regurgitation. There is no pulmonary hypertension. GREAT VESSELS The aortic root is normal in size. PERICARDIAL EFFUSION Pericardium appears mildly thickened. <Conclusion> The left ventricle is normal size. There is normal left ventricular wall thickness. The left ventricular function is normal. The left ventricular ejection fraction is within the normal range. There is normal LV segmental wall motion. The left ventricular diastolic function is normal. Pericardium appears mildly thickened.
--- NOTE | 2016-11-28 19:58 | CARD ---
APPROVED REPORT EKG Measurement Heart [id number] <Conclusion> Normal sinus rhythm with sinus arrhythmia Normal ECG
--- NOTE | 2016-11-28 23:54 | CON ---
CARDIOLOGY CONSULT DATE: REASON FOR CONSULTATION: Shortness of breath and dry cough. 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 The patient is also experiencing dry cough as well as shortness of breath. The patient did report chills at night. SOCIAL HISTORY: The patient is nonsmoker. 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 She is mother of two children. MEDICATIONS: The patient is on no medications at home. PHYSICAL EXAMINATION GENERAL: The patient is a young middle-aged female who does not appear to be in any distress. VITAL SIGNS: Blood pressure 110/79, heart rate 80, temperature 99.1 and respirations 18. HEENT: Normocephalic. CHEST: Clear. HEART: S1 and S2 regular. ABDOMEN: Soft. EXTREMITIES: No edema or calf tenderness. LABORATORY DATA: Today's CBC is within normal limits except for white count of 3.8. Urine drug screen is negative. Today's SMA-7 is within normal limits. Two sets of troponins are negative. Chest x-ray was unremarkable. Chest CT angio was negative for pulmonary embolism. Rib series was negative for rib fracture. EKG reveal sinus arrhythmia. ASSESSMENT: 1. Chest pain myocardial infarction is ruled out. 2. Dry cough, rule out upper respiratory tract infection. CONDITIONS: Obtained urine test and scheduled the patient for an echocardiogram. Luis Conrad MD
[2016-11-29 06:20] LABS: BASO # 0.03 K/mm3 (0.0-2.0); BASO % 0.8 % (0.0-3.0); EOS # 0.1 (0.0-0.7); EOS % 3.3 % (1.5-5.0); GRAN # 1.47 (1.4-6.5); GRAN % 37.3 % (50.0-68.0); HEMATOCRIT 38.8 % (36.0-48.0); LYMPH # 1.8 (1.2-3.4); LYMPH % 45.7 % (22.0-35.0); MEAN CELL VOLUME 88.6 fl (80.0-105.0); MEAN CORPUSCULAR HEMOGLOBIN 30.4 pg (25.0-35.0); MEAN CORPUSCULAR HGB CONC 34.3 g/dl (31.0-37.0); MEAN PLATELET VOLUME 9.6 fl (7.0-11.0); MONO # 0.5 (0.1-0.6); MONO % 12.9 % (1.0-6.0); RED CELL DISTRIBUTION WIDTH 12.3 % (11.5-14.5); WHITE BLOOD COUNT 3.9 10^3/ul (4.5-11.0)
[2016-11-29 06:33] VITALS: O2SAT 100
[2016-11-29 06:40] LABS: ALB/GLOB RATIO 1.4 (1.1-1.8); ALKALINE PHOSPHATASE 48 U/L (38-133); ALT/SGPT 30 U/L (7-56); AST/SGOT 22 U/L (15-39); BILIRUBIN,TOTAL 1.6 mg/dL (0.2-1.3); BLOOD UREA NITROGEN 10 mg/dL (7-21); CARBON DIOXIDE 25 mmol/L (21-33); CHLORIDE 106 mmol/L (98-107); GFR AFRICAN-AMERICAN > 60; GLUCOSE,RANDOM 96 mg/dL (70-110); SODIUM 140 mmol/L (132-148); TOTAL PROTEIN 6.9 g/dL (5.8-8.3)
[2016-11-29] MEDS ORDERED: Tuberculin 5 Units/0.1 ml Inj ID PRN (15:05)
[2016-11-29 15:41] VITALS: PULSE 100
--- NOTE | 2016-11-29 17:06 | CP.PCM.DIS ---
<YeisonBobbi - Last Filed: 11/30/16 11:35> Provider - Provider Date of Admission: 11/28/16 07:03 Attending physician: Kristian Pitts MD Primary care physician: Bertha Plunkett MD Time Spent in preparation of Discharge (in minutes): 35 Hospital Course - Lab Results Lab Results: Most Recent Lab Values WBC 3.9 10^3/ul (4.5-11.0) L 11/29/16 05:30 RBC 4.38 10^6/uL (3.5-6.1) 11/29/16 05:30 Hgb 13.3 g/dL (12.0-16.0) 11/29/16 05:30 Hct 38.8 % (36.0-48.0) 11/29/16 05:30 MCV 88.6 fl (80.0-105.0) 11/29/16 05:30 MCH 30.4 pg (25.0-35.0) 11/29/16 05:30 MCHC 34.3 g/dl (31.0-37.0) 11/29/16 05:30 RDW 12.3 % (11.5-14.5) 11/29/16 05:30 Plt Count 178 10^3/uL (120.0-450.0) 11/29/16 05:30 MPV 9.6 fl (7.0-11.0) 11/29/16 05:30 Gran % 37.3 % (50.0-68.0) L 11/29/16 05:30 Lymph % (Auto) 45.7 % (22.0-35.0) H 11/29/16 05:30 Hitchcock % (Auto) 12.9 % (1.0-6.0) H 11/29/16 05:30 Eos % (Auto) 3.3 % (1.5-5.0) 11/29/16 05:30 Baso % (Auto) 0.8 % (0.0-3.0) 11/29/16 05:30 Gran # 1.47 (1.4-6.5) 11/29/16 05:30 Lymph # 1.8 (1.2-3.4) 11/29/16 05:30 Hitchcock # 0.5 (0.1-0.6) 11/29/16 05:30 Eos # 0.1 (0.0-0.7) 11/29/16 05:30 Baso # 0.03 K/mm3 (0.0-2.0) 11/29/16 05:30 PT 11.6 Seconds (9.9-11.8) 11/28/16 05:30 INR 1.07 (0.93-1.08) 11/28/16 05:30 APTT 33.1 Seconds (23.7-30.8) H 11/28/16 05:30 Sodium 140 mmol/L (132-148) 11/29/16 05:30 Potassium 4.0 mmol/L (3.6-5.0) 11/29/16 05:30 Chloride 106 mmol/L (98-107) 11/29/16 05:30 Carbon Dioxide 25 mmol/L (21-33) 11/29/16 05:30 Anion Gap 13 (10-20) 11/29/16 05:30 BUN 10 mg/dL (7-21) 11/29/16 05:30 Creatinine 0.7 mg/dL (0.5-1.4) 11/29/16 05:30 Est GFR ( Amer) > 60 11/29/16 05:30 Est GFR (Non-Af Amer) > 60 11/29/16 05:30 Random Glucose 96 mg/dL (70-110) 11/29/16 05:30 Hemoglobin A1c 5.0 % (4.2-6.5) 11/28/16 05:30 Calcium 9.0 mg/dL (8.4-10.5) 11/29/16 05:30 Total Bilirubin 1.6 mg/dL (0.2-1.3) H 11/29/16 05:30 AST 22 U/L (15-39) 11/29/16 05:30 ALT 30 U/L (7-56) 11/29/16 05:30 Alkaline Phosphatase 48 U/L (38-133) 11/29/16 05:30 Lactate Dehydrogenase 499 U/L (333-699) 11/28/16 17:45 Total Creatine Kinase 37 U/L (35-230) 11/28/16 17:45 Troponin I < 0.01 ng/mL 11/28/16 17:45 Total Protein 6.9 g/dL (5.8-8.3) 11/29/16 05:30 Albumin 4.0 g/dL (3.0-4.8) 11/29/16 05:30 Globulin 2.9 gm/dL 11/29/16 05:30 Albumin/Globulin Ratio 1.4 (1.1-1.8) 11/29/16 05:30 Triglycerides 127 mg/dL (35-160) 11/28/16 05:30 Cholesterol 174 mg/dL (130-200) 11/28/16 05:30 LDL Cholesterol Direct 102 mg/dL (0-129) 11/28/16 05:30 HDL Cholesterol 42 mg/dL (29-60) 11/28/16 05:30 TSH 3rd Generation 2.16 mIU/mL (0.46-4.68) 11/28/16 11:49 Urine Opiates Screen Negative (NEGATIVE) 11/28/16 09:54 Urine Methadone Screen Negative (NEGATIVE) 11/28/16 09:54 Ur Barbiturates Screen Negative (NEGATIVE) 11/28/16 09:54 Ur Phencyclidine Scrn Negative (NEGATIVE) 11/28/16 09:54 Ur Amphetamines Screen Negative (NEGATIVE) 11/28/16 09:54 U Benzodiazepines Scrn Negative (NEGATIVE) 11/28/16 09:54 U Oth Cocaine Metabols Negative (NEGATIVE) 11/28/16 09:54 U Cannabinoids Screen Negative (NEGATIVE) 11/28/16 09:54 - Hospital Course Hospital Course: Discharge Summary for Dr. Pitts CC: palpitations/near syncope HPI: Pt is a 35 year old female who was brought to the ED by ambulance after she had a near-syncopal episode at home. Patient states that last night, she woke up feeling "weird", with generalized weakness, and had an episode of blurry vision, a cold feeling in the chest, palpitations, ringing in her ears, nausea, and dry heaving. Her noted that she looked pale, and he called the ambulance. Patient states that since being in the hospital, she now feels better, and no longer feels like she is going to pass out or have palpitations. Denies current nausea, vomiting, diarrhea, SOB, weakness, or paresthesias. Patient was previously seen in [facility] ED 2 days ago for similar symptoms, had a positive d-dimer test, and subsequently had negative CTA, EKG, and CXR. She reported a 3 week history of cold symptoms, 2 week history of cough, 3 day history of increasing SOB on exertion, and she was started on Zithromax prior to discharge from the ED at that time. She states that her cough has been improving since starting the Zithromax. Patient reports history of syncope once in the past, and had a negative medical workup at that time. She states that she last had an echo last year as part of her pre-operative evaluation prior to an umbilical hernia repair. She states that she has had sensations of shivering and dry mouth for months. 11/28 CXR: no active disease 11/27 EK bpm NSR 11/28 Echo: normal left ventricle, pericardium is mildly thickened, LVEF normal range, normal LV segmental wall motion, Left Ventricular diastolic function is normal Patient was given a PPD test prior to discharge and instructed to return to [facility] for re-evaluation in 2 days (48 hrs, Wednesday 11/29 after 16:00 or 72 hours, Saturday 12/02) - Date & Time of H&P Date of H&P: 11/29/16 Time of H&P: 18:09 Discharge Exam - Head Exam Head Exam: NORMAL INSPECTION - Eye Exam Eye Exam: EOMI, Normal appearance - ENT Exam ENT Exam: Mucous Membranes Moist - Neck Exam Neck exam: Full Rom - Respiratory Exam Respiratory Exam: Clear to PA & Lateral, NORMAL BREATHING PATTERN. absent: Accessory Muscle Use, Respiratory Distress - Cardiovascular Exam Cardiovascular Exam: REGULAR RHYTHM - Extremities Exam Extremities exam: full ROM - Back Exam Back exam: FULL ROM - Neurological Exam Neurological exam: Alert, Normal Gait, Oriented x3 - Psychiatric Exam Psychiatric exam: Normal Affect, Normal Mood Discharge Plan - Follow Up Plan Condition: STABLE Disposition: HOME/ ROUTINE Instructions: Chest Pain (GEN), Palpitations (GEN) Additional Instructions: 1. Follow up with primary care doctor in 1 week 2. Follow up at [facility] in 48 hours to be read PPD test. Location at the left forearm. Patient was given a PPD test prior to discharge and instructed to return to [facility] for re-evaluation in 2 days (48 hrs, Wednesday 11/29 after 17:00 or 72 hours, Saturday 12/02) 3. Follow up with nutrition counselor in 1 week. Referrals: Bertha Plunkett MD [Primary Care Provider] - <Kristian Pitts - Last Filed: 11/30/16 13:50> Provider - Provider Date of Admission: 11/28/16 07:03 Attending physician: Kristian Pitts MD Primary care physician: Bertha Plunkett MD Hospital Course - Lab Results Lab Results: Most Recent Lab Values WBC 3.9 10^3/ul (4.5-11.0) L 11/29/16 05:30 RBC 4.38 10^6/uL (3.5-6.1) 11/29/16 05:30 Hgb 13.3 g/dL (12.0-16.0) 11/29/16 05:30 Hct 38.8 % (36.0-48.0) 11/29/16 05:30 MCV 88.6 fl (80.0-105.0) 11/29/16 05:30 MCH 30.4 pg (25.0-35.0) 11/29/16 05:30 MCHC 34.3 g/dl (31.0-37.0) 11/29/16 05:30 RDW 12.3 % (11.5-14.5) 11/29/16 05:30 Plt Count 178 10^3/uL (120.0-450.0) 11/29/16 05:30 MPV 9.6 fl (7.0-11.0) 11/29/16 05:30 Gran % 37.3 % (50.0-68.0) L 11/29/16 05:30 Lymph % (Auto) 45.7 % (22.0-35.0) H 11/29/16 05:30 Hitchcock % (Auto) 12.9 % (1.0-6.0) H 11/29/16 05:30 Eos % (Auto) 3.3 % (1.5-5.0) 11/29/16 05:30 Baso % (Auto) 0.8 % (0.0-3.0) 11/29/16 05:30 Gran # 1.47 (1.4-6.5) 11/29/16 05:30 Lymph # 1.8 (1.2-3.4) 11/29/16 05:30 Hitchcock # 0.5 (0.1-0.6) 11/29/16 05:30 Eos # 0.1 (0.0-0.7) 11/29/16 05:30 Baso # 0.03 K/mm3 (0.0-2.0) 11/29/16 05:30 PT 11.6 Seconds (9.9-11.8) 11/28/16 05:30 INR 1.07 (0.93-1.08) 11/28/16 05:30 APTT 33.1 Seconds (23.7-30.8) H 11/28/16 05:30 Sodium 140 mmol/L (132-148) 11/29/16 05:30 Potassium 4.0 mmol/L (3.6-5.0) 11/29/16 05:30 Chloride 106 mmol/L (98-107) 11/29/16 05:30 Carbon Dioxide 25 mmol/L (21-33) 11/29/16 05:30 Anion Gap 13 (10-20) 11/29/16 05:30 BUN 10 mg/dL (7-21) 11/29/16 05:30 Creatinine 0.7 mg/dL (0.5-1.4) 11/29/16 05:30 Est GFR ( Amer) > 60 11/29/16 05:30 Est GFR (Non-Af Amer) > 60 11/29/16 05:30 Random Glucose 96 mg/dL (70-110) 11/29/16 05:30 Hemoglobin A1c 5.0 % (4.2-6.5) 11/28/16 05:30 Calcium 9.0 mg/dL (8.4-10.5) 11/29/16 05:30 Total Bilirubin 1.6 mg/dL (0.2-1.3) H 11/29/16 05:30 AST 22 U/L (15-39) 11/29/16 05:30 ALT 30 U/L (7-56) 11/29/16 05:30 Alkaline Phosphatase 48 U/L (38-133) 11/29/16 05:30 Lactate Dehydrogenase 499 U/L (333-699) 11/28/16 17:45 Total Creatine Kinase 37 U/L (35-230) 11/28/16 17:45 Troponin I < 0.01 ng/mL 11/28/16 17:45 Total Protein 6.9 g/dL (5.8-8.3) 11/29/16 05:30 Albumin 4.0 g/dL (3.0-4.8) 11/29/16 05:30 Globulin 2.9 gm/dL 11/29/16 05:30 Albumin/Globulin Ratio 1.4 (1.1-1.8) 11/29/16 05:30 Triglycerides 127 mg/dL (35-160) 11/28/16 05:30 Cholesterol 174 mg/dL (130-200) 11/28/16 05:30 LDL Cholesterol Direct 102 mg/dL (0-129) 11/28/16 05:30 HDL Cholesterol 42 mg/dL (29-60) 11/28/16 05:30 TSH 3rd Generation 2.16 mIU/mL (0.46-4.68) 11/28/16 11:49 Urine Opiates Screen Negative (NEGATIVE) 11/28/16 09:54 Urine Methadone Screen Negative (NEGATIVE) 11/28/16 09:54 Ur Barbiturates Screen Negative (NEGATIVE) 11/28/16 09:54 Ur Phencyclidine Scrn Negative (NEGATIVE) 11/28/16 09:54 Ur Amphetamines Screen Negative (NEGATIVE) 11/28/16 09:54 U Benzodiazepines Scrn Negative (NEGATIVE) 11/28/16 09:54 U Oth Cocaine Metabols Negative (NEGATIVE) 11/28/16 09:54 U Cannabinoids Screen Negative (NEGATIVE) 11/28/16 09:54 Attending/Attestation - Attestation I have personally seen and examined this patient.: Yes I have fully participated in the care of the patient.: Yes I have reviewed all pertinent clinical information, including history, physical exam and plan: Yes Notes (Text): 11/29/16 35 year old female who presents with complaint of chest pain, palpitations and near syncopal episode. Serial cardiac enzymes were negative and ACS was ruled out. Her symptoms resolved. Echocardiogram was reviewed. She was seen by cardiology who requested PPD placement which was placed this afternoon. Patient will be discharged home to follow up with her pmd. Return to [facility] Friday afternoon - Friday to read PPD. Kristian Pitts MD Hospitalist.
[2016-11-29 18:41] VITALS: BP 105/62; TEMP 98.5
--- NOTE | 2016-11-29 20:29 | CP.PCM.PN ---
Subjective - Date & Time of Evaluation Date of Evaluation: 11/29/16 Time of Evaluation: 20:27 - Subjective Subjective: Patient has been discharged by . Spoke to . Will enter discharge order. Will have medical services manager discharge patient. Objective - Vital Signs/Intake and Output Vital Signs (last 24 hours): Temp Pulse Resp BP Pulse Ox 98.5 F 100 H 20 105/62 100 11/29/16 18:00 11/29/16 18:00 11/29/16 18:00 11/29/16 18:00 11/29/16 06:00 - Medications Medications: Current Medications Pantoprazole Sodium (Protonix Inj) 40 mg IVP DAILY ADALGISA Last Admin: 11/29/16 09:47 Dose: Not Given Tuberculin PPD (Tubersol) 5 tu ID ONCE PRN PRN Reason: Other - Labs Labs: 11/29/16 05:30 11/29/16 05:30 PT 11.6 Seconds (9.9-11.8) 11/28/16 05:30 INR 1.07 (0.93-1.08) 11/28/16 05:30 APTT 33.1 Seconds (23.7-30.8) H 11/28/16 05:30
--- NOTE | 2016-11-29 22:01 | PN ---
DATE: SUBJECTIVE: The patient having chest pain, cough has improved. PHYSICAL EXAMINATION VITAL SIGNS: Blood pressure 110/70, heart rate 96, temperature 98 and respirations 20. HEENT: Normocephalic. CHEST: Clear. HEART: S1 and S2 regular. EXTREMITIES: No edema. LABORATORY DATA: Drug screen is negative. SMA-7 is within normal limits. Echocardiographic study revealed mild second pericardium otherwise unremarkable. TSH level is within normal limit. ASSESSMENT: 1. Chest pain, myocardial infraction is ruled out. 2. Upper respiratory tract infection. CONDITIONS: Case was discussed with Dr. Pitts and I recommenced to place a PPD and discharge the patient with a followup of the result of the PPD on Friday. Luis Conrad MD
== END 2016-11-29 21:19 | disposition home or self-care (01) ==
LOC: ED 05:00 → ERH 07:03 → 2RSO 10:27
PROVIDERS: ADMIT Internal Medicine; ATTEND Internal Medicine
DX: R07.89 Other chest pain (principal); R55 Syncope and collapse; R00.2 Palpitations; J06.9 Acute upper respiratory infection, unspecified; G43.909 Migraine, unspecified, not intractable, without status migrainosus
CPT/HCPCS: 36415; 71010; 80053; 80061; 80324; 80345; 80346; 80349; 80353; 80358; 80361; 82550; 83036; 83615; 83992; 84443; 84484; 85025; 85027; 85610; 85730; 93005; 93306; 99285; G0378

== ENCOUNTER 2016-12-02 11:42 | Emergency (ER) | payer MEDICAID ==
[2016-12-02 11:43] VITALS: BMI 20.3
[2016-12-02 13:09] VITALS: BP 113/76; PULSE 80; RESP 16; TEMP 98; O2SAT 100
--- NOTE | 2016-12-02 13:13 | ED PDOC ---
Arrival/HPI - General Chief Complaint: Abnormal Skin Integrity Time Seen by Provider: 12/02/16 13:12 Historian: Patient - History of Present Illness Narrative History of Present Illness (Text): 12/02/16 13:19 Cm Marquez is a 35 year old female who presents to the emergency department for a request of her PPD test to be read. Patient reports the PPD test was placed on 11/29/2016 on her left lower arm. Patient does not have any complaints. Time/Duration: < week (4 days ago) Symptom Onset: Other (injection of PPD) Past Medical History - Provider Review Nursing Documentation Reviewed: Yes - Infectious Disease Hx of Infectious Diseases: None - Tetanus Immunization Tetanus Immunization: Unknown - Cardiac Hx Cardiac Disorders: No Other/Comment: pt was hospitalized for sob and abnormal d-dimer - Pulmonary Hx Respiratory Disorders: No - Neurological Hx Neurological Disorder: No - HEENT Hx HEENT Disorder: No - Renal Hx Renal Disorder: No - Endocrine/Metabolic Hx Endocrine Disorders: No - Hematological/Oncological Hx Blood Disorders: No - Integumentary Hx Dermatological Disorder: No - Musculoskeletal/Rheumatological Hx Falls: No - Gastrointestinal Hx Gastrointestinal Disorders: No - Genitourinary/Gynecological Hx Genitourinary Disorders: No Hx Urinary Tract Infection: Yes - Psychiatric Hx Psychophysiologic Disorder: No Hx Substance Use: No - Surgical History Hx Section: Yes Other/Comment: umbilicus herinal repair - Anesthesia Hx Anesthesia: No Family/Social History - Physician Review Nursing Documentation Reviewed: Yes Family/Social History: Unknown Family HX Smoking Status: Never Smoked Hx Alcohol Use: No Hx Substance Use: No Allergies/Home Meds Allergies/Adverse Reactions: Allergies ciprofloxacin [From Cipro] Allergy (Verified 11/28/16 11:43) SWELLING Home Medications: Home Meds Medication Instructions Recorded Confirmed Azithromycin [Zithromax] 250 mg PO DAILY 11/28/16 11/28/16 Review of Systems - Physician Review All systems were reviewed & negative as marked: Yes - Review of Systems Constitutional: absent: Fevers Respiratory: absent: SOB Cardiovascular: absent: Chest Pain Skin: Other (PPD test to be read) Physical Exam Vital Signs Reviewed: Yes Vital Signs Temp Pulse Resp BP Pulse Ox 12/02/16 13:06 98 F 80 16 113/76 100 Temperature: Afebrile Blood Pressure: Normal Pulse: Regular Respiratory Rate: Normal Appearance: Positive for: Well-Appearing, Non-Toxic, Comfortable Pain Distress: None Mental Status: Positive for: Alert and Oriented X 3 - Systems Exam Head: Present: Atraumatic, Normocephalic Pupils: Present: PERRL Extroacular Muscles: Present: EOMI Conjunctiva: Present: Normal Mouth: Present: Moist Mucous Membranes Neck: Present: Normal Range of Motion Upper Extremity: Present: Normal Inspection, Other (injection site jessica on left lower arm, no erythema or elevation to ppd site). No: Cyanosis, Edema Lower Extremity: Present: Normal Inspection. No: Edema Neurological: Present: GCS=15, CN II-XII Intact, Speech Normal Skin: Present: Warm, Dry, Normal Color. No: Rashes, Erythematous Psychiatric: Present: Alert, Oriented x 3, Normal Insight, Normal Concentration Medical Decision Making ED Course and Treatment: 12/02/16 13:12 PPD is negative - Scribe Statement The provider has reviewed the documentation as recorded by the Scribe 12/02/2016 Jessica Murrell Provider Scribe Attestation: All medical record entries made by the Scribe were at my direction and personally dictated by me. I have reviewed the chart and agree that the record accurately reflects my personal performance of the history, physical exam, medical decision making, and the department course for this patient. I have also personally directed, reviewed, and agree with the discharge instructions and disposition. Disposition/Present on Arrival - Present on Arrival Any Indicators Present on Arrival: No History of DVT/PE: No History of Uncontrolled Diabetes: No Urinary Catheter: No History of Decub. Ulcer: No History Surgical Site Infection Following: CABG - Mediastinitis, None - Disposition Have Diagnosis and Disposition been Completed?: Yes Diagnosis: PPD negative Disposition: HOME/ ROUTINE Disposition Time: 13:12 Patient Plan: Discharge Condition: GOOD Additional Instructions: YOUR PPD TEST IS NEGATIVE Referrals: [facility] Pauline Avila, [Primary Care Provider] - Follow up with primary Forms: [employer] (Telugu)
== END 2016-12-02 13:30 | disposition home or self-care (01) ==
LOC: ED 11:42
DX: R76.11 Nonspecific reaction to tuberculin skin test without active tuberculosis (principal)

== ENCOUNTER 2017-04-30 20:18 | Emergency (ER) | payer MEDICAID ==
[2017-04-30 20:18] VITALS: BMI 20.3
[2017-04-30 20:33] VITALS: RESP 18; TEMP 98.7; O2SAT 99
[2017-04-30 21:18] LABS: HEMOGLOBIN 12.4 g/dL (12.0-16.0); MEAN CELL VOLUME 92.1 fl (80.0-105.0); MEAN CORPUSCULAR HEMOGLOBIN 31.6 pg (25.0-35.0); MEAN CORPUSCULAR HGB CONC 34.3 g/dl (31.0-37.0); MEAN PLATELET VOLUME 10.1 fl (7.0-11.0); RBC 3.93 10^6/uL (3.5-6.1); RED CELL DISTRIBUTION WIDTH 12.1 % (11.5-14.5)
[2017-04-30 21:21] LABS: URINE BILIRUBIN NEGATIVE (NEGATIVE); URINE BLOOD TRACE-INTACT (NEGATIVE); URINE GLUCOSE (UA) NEGATIVE (NEGATIVE); URINE LEUKOCYTE ESTERASE NEGATIVE Leu/uL (NEGATIVE); URINE NITRATE NEGATIVE (NEGATIVE); URINE PROTEIN NEGATIVE mg/dL (<30 mg/dL); URINE UROBILINOGEN 0.2 E.U./dL (<1 E.U./dL)
[2017-04-30 21:34] LABS: ALB/GLOB RATIO 1.4 (1.1-1.8); ALBUMIN 4.1 g/dL (3.0-4.8); ALT/SGPT 29 U/L (7-56); AST/SGOT 22 U/L (14-36); BLOOD UREA NITROGEN 6 mg/dL (7-21); GFR AFRICAN-AMERICAN > 60; GFR NON-AFRICAN AMERICAN > 60
[2017-04-30 21:35] LABS: URINE APPEARANCE CLEAR (CLEAR); URINE COLOR YELLOW (YELLOW)
[2017-04-30 21:36] LABS: HCG,QUALITATIVE URINE NEGATIVE (NEGATIVE)
[2017-04-30 21:38] LABS: INR 1.24 (0.93-1.08); PARTIAL THROMBOPLASTIN TIME 40.9 Seconds (25.1-36.5); PROTHROMBIN TIME 14.2 SECONDS (9.4-12.5)
[2017-04-30 21:42] LABS: URINE EPITHELIAL CELLS 0 - 2 /hpf (0-5); URINE RBC 0 - 2 /hpf (0-2); URINE WBC 0 - 2 /hpf (0-6)
[2017-04-30 21:43] LABS: URINE BACTERIA OCC (NEG)
[2017-04-30 21:44] LABS: TROPONIN I < 0.01 ng/mL
[2017-04-30] MEDS ORDERED: Potassium Chloride 20 mEq ER Tab PO STA (22:38)
--- NOTE | 2017-04-30 22:38 | ED PDOC ---
Arrival/HPI - General Chief Complaint: Flu-like Symptoms Time Seen by Provider: 04/30/17 20:38 Historian: Patient - History of Present Illness Narrative History of Present Illness (Text): 04/30/17 20:45 Cm Marquez is a 36 year old female, whose past medical history includes migraines and recurrent UTIs, who presents to the Emergency department complaining of flu-like symptoms for the past couple of days. Patient states she has been experiencing dry cough, low-grade fever, nasal congestion, and diffuse body aches. Patient states she was seen by her PMD in the office today and was advised to come to the ER for further evaluation. Patient noted to have fast heart rate while at PMD's office, as per patient. Patient denies any chest pain, shortness of breath, nausea, vomiting, back pain, neck pain, headache, dizziness, or any other complaints. Time/Duration: < week Symptom Onset: Gradual Symptom Course: Unchanged Activities at Onset: Light Context: Home Past Medical History - Provider Review Nursing Documentation Reviewed: Yes - Infectious Disease Hx of Infectious Diseases: None - Tetanus Immunization Tetanus Immunization: Unknown - Cardiac Hx Cardiac Disorders: No Other/Comment: pt was hospitalized for sob and abnormal d-dimer - Pulmonary Hx Respiratory Disorders: No - Neurological Hx Neurological Disorder: No - HEENT Hx HEENT Disorder: No - Renal Hx Renal Disorder: No - Endocrine/Metabolic Hx Endocrine Disorders: No - Hematological/Oncological Hx Blood Disorders: No - Integumentary Hx Dermatological Disorder: No - Musculoskeletal/Rheumatological Hx Falls: No - Gastrointestinal Hx Gastrointestinal Disorders: No - Genitourinary/Gynecological Hx Genitourinary Disorders: No Hx Urinary Tract Infection: Yes - Psychiatric Hx Psychophysiologic Disorder: No Hx Substance Use: No - Surgical History Hx Section: Yes Other/Comment: umbilicus herinal repair - Anesthesia Hx Anesthesia: No Family/Social History - Physician Review Nursing Documentation Reviewed: Yes Family/Social History: Unknown Family HX Smoking Status: Never Smoked Hx Alcohol Use: No Hx Substance Use: No Allergies/Home Meds Allergies/Adverse Reactions: Allergies ciprofloxacin [From Cipro] Allergy (Verified 04/30/17 20:27) SWELLING Review of Systems - Physician Review All systems were reviewed & negative as marked: Yes - Review of Systems Constitutional: Fevers Eyes: Normal ENT: Sinus Congestion Respiratory: Cough. absent: SOB Cardiovascular: Normal. absent: Chest Pain Gastrointestinal: Normal. absent: Abdominal Pain, Diarrhea, Nausea, Vomiting Genitourinary Female: Normal. absent: Dysuria, Frequency, Hematuria, Urine Output Changes Musculoskeletal: Myalgias. absent: Back Pain, Neck Pain Skin: Normal. absent: Rash Neurological: Normal. absent: Headache, Dizziness Endocrine: Normal Hemo/Lymphatic: Normal Psychiatric: Normal Physical Exam Vital Signs Reviewed: Yes Vital Signs Temp Pulse Resp BP Pulse Ox 04/30/17 20:28 98.7 F 125 H 18 109/76 99 Temperature: Afebrile Blood Pressure: Normal Pulse: Tachycardic Respiratory Rate: Normal Appearance: Positive for: Well-Appearing, Non-Toxic, Comfortable Pain Distress: None Mental Status: Positive for: Alert and Oriented X 3 - Systems Exam Head: Present: Atraumatic, Normocephalic Pupils: Present: PERRL Extroacular Muscles: Present: EOMI Conjunctiva: Present: Normal Ears: Present: Normal, NORMAL TM, Normal Canal. No: Erythema, TM Bulging, Fluid Mouth: Present: Moist Mucous Membranes Pharnyx: Present: Normal. No: ERYTHEMA, EXUDATE, TONSILS ENLARGED, Peritonsilar Swelling, Uvular Deviation, Muffled/Hoarse Voice, Strider, Soft Palate/Uvular Edema Nose (External): Present: Atraumatic Nose (Internal): Present: Rhinorrhea (Nasal congestion) Neck: Present: Normal Range of Motion. No: Meningeal Signs, MIDLINE TENDERNESS , Paraspinal Tenderness Respiratory/Chest: Present: Clear to Auscultation, Good Air Exchange. No: Respiratory Distress, Accessory Muscle Use Cardiovascular: Present: Normal S1, S2, Tachycardic. No: Murmurs Abdomen: Present: Normal Bowel Sounds. No: Tenderness, Distention, Peritoneal Signs Back: Present: Normal Inspection. No: CVA Tenderness, Midline Tenderness, Paraspinal Tenderness Upper Extremity: Present: Normal Inspection. No: Cyanosis, Edema Lower Extremity: Present: Normal Inspection. No: Edema Neurological: Present: GCS=15, CN II-XII Intact, Speech Normal, Motor Func Grossly Intact, Normal Sensory Function, Normal Cerebellar Funct Skin: Present: Warm, Dry, Normal Color. No: Rashes Psychiatric: Present: Alert, Oriented x 3, Normal Insight, Normal Concentration Medical Decision Making ED Course and Treatment: 04/30/17 20:45 Impression: 36 year old female complaining of flu-like symptoms, dry cough, low-grade fever , nasal congestion, and body aches. Plan: -- EKG -- Chest X-ray -- Labs, cardiac enzymes, rapid influenza -- UA -- Tylenol -- Reassess and disposition Progress Notes: Reviewed EKG, sinus tachycardia at [address] bpm[address] Non-specific ST/T wave changes. 04/28/17 22:30 Chest X-ray reviewed, shows no acute processes. 04/30/17 22:36 Labs noted, pt positive for influenza A. Tamiflu ordered. 04/30/17 22:53 On re-evaluation, patient feels better and is in no acute distress. I have discussed the results and plan with the patient, who expresses understanding. Patient in agreement with plan to be discharged home. Patient is stable for discharge. Patient was instructed to follow up with physician or return if symptoms worsen or new concerning symptoms arise. - Lab Interpretations Lab Results: 04/30/17 21:05 04/30/17 21:05 Lab Results 04/30/17 21:05: Urine Color Yellow, Urine Appearance Clear, Urine pH 6.0, Ur Specific [place] 1.010, Urine Protein Negative, Urine Glucose (UA) Negative, Urine Ketones 15 H, Urine Blood Trace-intact H, Urine Nitrate Negative, Urine Bilirubin Negative, Urine Urobilinogen 0.2, Ur Leukocyte Esterase Negative, Urine RBC 0 - 2, Urine WBC 0 - 2, Ur Epithelial Cells 0 - 2, Urine Bacteria Occ , Urine HCG, Qual Negative 04/30/17 21:05: Influenza Typ A,B (EIA) Pos for influenza a H 04/30/17 21:05: PT 14.2 H, INR 1.24 H, APTT 40.9 H 04/30/17 21:05: WBC 4.0 L, RBC 3.93, Hgb 12.4, Hct 36.2, MCV 92.1 D, MCH 31.6, MCHC 34.3, RDW 12.1, Plt Count 159, MPV 10.1 04/30/17 21:05: Sodium 134, Potassium 3.3 L, Chloride 102, Carbon Dioxide 22, Anion Gap 14, BUN 6 L, Creatinine 0.7, Est GFR ( Amer) > 60, Est GFR (Non -Af Amer) > 60, Random Glucose 102, Calcium 9.0, Total Bilirubin 1.4 H, AST 22, ALT 29, Alkaline Phosphatase 45, Lactate Dehydrogenase 427, Total Creatine Kinase 67, Troponin I < 0.01, Total Protein 7.0, Albumin 4.1, Globulin 2.9, Albumin/Globulin Ratio 1.4 I have reviewed the lab results: Yes - RAD Interpretation Radiology Orders: 04/30/17 20:50 CHEST PORTABLE [RAD] Stat Powerhouse Electrician Apprentice: ED Physician - EKG Interpretation Interpreted by ED Physician: Yes Type: 12 lead EKG - Medication Orders Current Medication Orders: Discontinued Medications Acetaminophen (Tylenol 325mg Tab) 650 mg PO STAT STA Stop: 04/30/17 20:50 Last Admin: 04/30/17 21:12 Dose: 650 mg Oseltamivir Phosphate (Tamiflu Cap) 75 mg PO ONCE ONE PRN Reason: Protocol Stop: 04/30/17 23:01 Last Admin: 04/30/17 23:00 Dose: 75 mg Potassium Chloride (K-Dur 20 Meq Er Tab) 20 meq PO STAT STA Stop: 04/30/17 22:39 Last Admin: 04/30/17 23:00 Dose: 20 meq - Scribe Statement The provider has reviewed the documentation as recorded by the Scribpeterson Rogers All medical record entries made by the Gaibpeterson were at my direction and personally dictated by me. I have reviewed the chart and agree that the record accurately reflects my personal performance of the history, physical exam, medical decision making, and the department course for this patient. I have also personally directed, reviewed, and agree with the discharge instructions and disposition. Disposition/Present on Arrival - Present on Arrival Any Indicators Present on Arrival: No History of DVT/PE: No History of Uncontrolled Diabetes: No Urinary Catheter: No History of Decub. Ulcer: No History Surgical Site Infection Following: CABG - Mediastinitis, None - Disposition Have Diagnosis and Disposition been Completed?: Yes Diagnosis: Influenza A Disposition: HOME/ ROUTINE Disposition Time: 22:53 Patient Plan: Discharge Condition: GOOD Discharge Instructions (ExitCare): Influenza (ED) Additional Instructions: Drink plenty of liquids/Take tylenol as directed/take prescribed meds as directed/follow up with your doctor this week Prescriptions: Oseltamivir [Tamiflu] 75 mg PO BID #10 cap Referrals: Eusebio Avila, [Primary Care Provider] - Follow up with primary Forms: [email or web address] (Pakistani), WORK NOTE
[2017-05-01 03:22] VITALS: BP 111/74; PULSE 84
--- NOTE | 2017-05-01 07:21 | RAD ---
HISTORY: fever COMPARISON: Chest x-ray performed 11/28/16 TECHNIQUE: Chest, one view. FINDINGS: LUNGS: No focal consolidation. Please note that chest x-ray has limited sensitivity for the detection of pulmonary masses. PLEURA: No significant pleural effusion identified. No definite pneumothorax . CARDIOVASCULAR: The cardiomediastinal silhouette appears within normal limits of size. OSSEOUS STRUCTURES: No acute osseous abnormality identified. VISUALIZED UPPER ABDOMEN: Unremarkable. OTHER FINDINGS: None. IMPRESSION: No focal consolidation, significant pleural effusion, or definite pneumothorax identified.
--- NOTE | 2017-05-01 18:16 | CARD ---
APPROVED REPORT EKG Measurement Heart [id number] <Conclusion> Sinus tachycardia Possible Left atrial enlargement Borderline ECG
== END 2017-04-30 23:15 | disposition home or self-care (01) ==
LOC: ED 20:18
DX: J10.1 Influenza due to other identified influenza virus with other respiratory manifestations (principal); Z87.440 Personal history of urinary (tract) infections

== ENCOUNTER 2017-09-20 04:49 | Emergency (ER) | payer MEDICAID ==
[2017-09-20 05:00] VITALS: BMI 20.6
[2017-09-20 05:08] VITALS: PULSE 97
--- NOTE | 2017-09-20 05:45 | ED PDOC ---
Arrival/HPI <Andrew Bernard - Last Filed: 09/20/17 07:14> <Brandon Alvarado - Last Filed: 09/20/17 07:38> - General Chief Complaint: Dizziness/Lightheaded Time Seen by Provider: 09/20/17 04:51 - History of Present Illness Narrative History of Present Illness (Text): 09/20/17 05:42 Patient is a 36 yo F presents to ED due to near syncopal event. Patient states that she was at home early this AM, when she got out of bed she began to feel lightheaded and dizzy, her vision started to become white, and she was able basilio back to her bed before passing out. Patient states that she had a similar episode about 1 year ago, but that this occasion was worse. Patient states that she does not take any medications or been sick recently. Patient states that she recently had holter monitor for 7 days and is awaiting her followup appointment with her garden worker on 09/25/17. Patient denies CP, SOB, n/v/d, abdominal pain, fever, chills, or VANG. PMD: Dimitrios Cardio: Geremias (Andrew Bernard) Past Medical History - Infectious Disease Hx of Infectious Diseases: None - Tetanus Immunization Tetanus Immunization: Unknown - Cardiac Hx Cardiac Disorders: No Other/Comment: pt was hospitalized for sob and abnormal d-dimer - Pulmonary Hx Respiratory Disorders: No - Neurological Hx Neurological Disorder: No - HEENT Hx HEENT Disorder: No - Renal Hx Renal Disorder: No - Endocrine/Metabolic Hx Endocrine Disorders: No - Hematological/Oncological Hx Blood Disorders: No - Integumentary Hx Dermatological Disorder: No - Musculoskeletal/Rheumatological Hx Falls: No - Gastrointestinal Hx Gastrointestinal Disorders: No - Genitourinary/Gynecological Hx Genitourinary Disorders: No Hx Urinary Tract Infection: Yes - Psychiatric Hx Psychophysiologic Disorder: No Hx Substance Use: No - Surgical History Hx Section: Yes Other/Comment: umbilicus herinal repair - Anesthesia Hx Anesthesia: Yes Hx Anesthesia Reactions: No Hx Malignant Hyperthermia: No <Andrew Bernard - Last Filed: 09/20/17 07:14> Family/Social History - Physician Review Nursing Documentation Reviewed: Yes Family/Social History: No Known Family HX Smoking Status: Never Smoked Hx Alcohol Use: No Hx Substance Use: No <Andrew Bernard - Last Filed: 09/20/17 07:14> Allergies/Home Meds <Andrew Bernard - Last Filed: 09/20/17 07:14> <TeebrettBrandon mays - Last Filed: 09/20/17 07:38> Allergies/Adverse Reactions: Allergies ciprofloxacin [From Cipro] Allergy (Verified 04/30/17 20:27) SWELLING Home Medications: Home Meds Medication Instructions Recorded Confirmed No Known Home Med 09/20/17 09/20/17 Review of Systems - Physician Review All systems were reviewed & negative as marked: Yes (12 point ROS reviewed and is negative other than what is stated in HPI.`) <Andrew Bernard - Last Filed: 09/20/17 07:14> Physical Exam Vital Signs Reviewed: Yes Temperature: Afebrile Blood Pressure: Normal Pulse: Tachycardic Respiratory Rate: Normal Appearance: Positive for: Non-Toxic Pain Distress: None Mental Status: Positive for: Alert and Oriented X 3 - Systems Exam Head: Present: Atraumatic, Normocephalic Pupils: Present: PERRL Extroacular Muscles: Present: EOMI Conjunctiva: Present: Normal Mouth: Present: Moist Mucous Membranes Neck: Present: Normal Range of Motion Respiratory/Chest: Present: Clear to Auscultation. No: Wheezes, Rales, Rhonchi Cardiovascular: Present: Regular Rate and Rhythm, Normal S1, S2. No: Murmurs, Rub, Gallop Abdomen: No: Tenderness, Distention, Rebound, Guarding Upper Extremity: Present: Normal Inspection. No: Cyanosis, Edema Lower Extremity: Present: Normal Inspection. No: Edema Neurological: Present: GCS=15, CN II-XII Intact, Speech Normal Skin: Present: Warm, Dry, Normal Color. No: Rashes Psychiatric: Present: Alert, Oriented x 3, Normal Insight, Normal Concentration <Andrew Bernard - Last Filed: 09/20/17 07:14> Vital Signs Temp Pulse Resp BP Pulse Ox 09/20/17 07:23 98.1 F 97 H 16 111/79 100 09/20/17 05:08 98.4 F 97 H 18 110/74 99 Medical Decision Making <Andrew Bernard - Last Filed: 09/20/17 07:14> Reassessment Condition: Re-examined, Improved - Lab Interpretations I have reviewed the lab results: Yes - EKG Interpretation Interpreted by ED Physician: Yes (NSR similar to prior) Type: 12 lead EKG <Brandon Alvarado - Last Filed: 09/20/17 07:38> ED Course and Treatment: 09/20/17 05:49 36 yo F presents to ED with near-syncopal event. Plan: - CBC, CMP - Accucheck - EKG - Orthostatics - POC - PERC negative. - Reassess and disposition 09/20/17 06:03 Negative and orthostatics. BG 102. Patient reports some nausea. - 1 L NS bolus 09/20/17 07:15 EKG reviewed shows rate of 85, NSR. Patient states she feels better and is asymptomatic. Discussed with patient the results of her workup and the ddx. As patient symptoms have improved and already has a follow up with her garden worker on 09/25/17, she will be discharged. Patient is advised maintain adequate hydration and return to ED if symptoms worsen. (Andrew Bernard) 09/20/17 07:37 i had a long discussion with patient and she stated she had no loc, and is being fu by cardiology for palpitations. she has no chest pain/shortness of breath. she wants to go home at this time and will fu cardiology to review her symptoms and holter monitor tests. (Brandon Alvarado) - Lab Interpretations Lab Results: 09/20/17 06:10 09/20/17 06:10 Lab Results 09/20/17 06:10: Sodium 140, Potassium 3.7, Chloride 106, Carbon Dioxide 23, Anion Gap 15, BUN 12, Creatinine 0.6 L, Est GFR ( Amer) > 60, Est GFR ( Non-Af Amer) > 60, Random Glucose 107, Calcium 8.5, Total Bilirubin 0.8, AST 18 , ALT 26, Alkaline Phosphatase 48, Total Protein 6.5, Albumin 3.8, Globulin 2.6 , Albumin/Globulin Ratio 1.5 09/20/17 06:10: WBC 5.6 D, RBC 3.88, Hgb 12.1, Hct 34.9 L, MCV 89.9, MCH 31.2, MCHC 34.7, RDW 12.3, Plt Count 182, MPV 10.4, Gran % 60.1, Lymph % (Auto) 25.9, Mineral % (Auto) 10.1 H, Eos % (Auto) 3.5, Baso % (Auto) 0.4, Gran # 3.39, Lymph # (Auto) 1.5, Mineral # (Auto) 0.6, Eos # (Auto) 0.2, Baso # (Auto) 0.02 - Medication Orders Current Medication Orders: Sodium Chloride (Sodium Chloride 0.9%) 1,000 mls @ 999 mls/hr IV .Q1H1M STA Stop: 09/20/17 07:41 Last Admin: 09/20/17 06:48 Dose: 999 mls/hr eMAR Start Stop Document 09/20/17 06:48 (Rec: 09[facility]20[facility]17 06:49 [id number] Intravenous Solution Start Date 09/20/17 Start Time 06:48 Discontinued Medications Ondansetron HCl (Zofran Inj) 4 mg IVP STAT STA Stop: 09/20/17 06:42 Last Admin: 09/20/17 06:42 Dose: 4 mg IVP Administration Document 09/20/17 06:42 RG (Rec: 09/20/17 06:49 [id number] Charges for Administration # of IVP Administrations 1 Disposition/Present on Arrival - Present on Arrival Any Indicators Present on Arrival: No History of DVT/PE: No History of Uncontrolled Diabetes: No Urinary Catheter: No History of Decub. Ulcer: No History Surgical Site Infection Following: CABG - Mediastinitis, None - Disposition Have Diagnosis and Disposition been Completed?: Yes Disposition Time: 07:19 Patient Plan: Discharge <Andrew Bernard - Last Filed: 09/20/17 07:14> <Brandon Alvarado - Last Filed: 09/20/17 07:38> - Disposition Diagnosis: Near syncope Disposition: HOME/ ROUTINE Condition: STABLE Discharge Instructions (ExitCare): Near Fainting (DC) Additional Instructions: 1. Follow up with garden worker as scheduled 2. Follow up with PMD within 1 week 3. Maintain adequate hydration 4. Avoid inciting factors 5. Return to ED if symptoms worsen JHOAN BOONE, thank you for letting us take care of you today. Your provider was Brandon Alvarado MD and you were treated for NOT FEELING WELL. The emergency medical care you received today was directed at your acute symptoms. If you were prescribed any medication, please fill it and take as directed. It may take several days for your symptoms to resolve. Return to the Emergency Department if your symptoms worsen, do not improve, or if you have any other problems. Please contact your doctor or call one of the physicians/clinics you have been referred to that are listed on the Patient Visit Information form that is included in your discharge packet. Bring any paperwork you were given at discharge with you along with any medications you are taking to your follow up visit. Our treatment cannot replace ongoing medical care by a primary care provider outside of the emergency department. Thank you for allowing the [facility] team to be part of your care today. Forms: [employer] (Uzbek)
[2017-09-20 06:41] LABS: BASO # 0.02 K/mm3 (0.0-2.0); BASO % 0.4 % (0.0-3.0); EOS # 0.2 (0.0-0.7); EOS % 3.5 % (1.5-5.0); GRAN # 3.39 (1.4-6.5); GRAN % 60.1 % (50.0-68.0); HEMOGLOBIN 12.1 g/dL (12.0-16.0); LYMPH # 1.5 (1.2-3.4); LYMPH % 25.9 % (22.0-35.0); MEAN CELL VOLUME 89.9 fl (80.0-105.0); MEAN CORPUSCULAR HEMOGLOBIN 31.2 pg (25.0-35.0); MEAN CORPUSCULAR HGB CONC 34.7 g/dl (31.0-37.0); MEAN PLATELET VOLUME 10.4 fl (7.0-11.0); MONO # 0.6 (0.1-0.6); MONO % 10.1 % (1.0-6.0); RBC 3.88 10^6/uL (3.5-6.1); RED CELL DISTRIBUTION WIDTH 12.3 % (11.5-14.5); WHITE BLOOD COUNT 5.6 10^3/ul (4.5-11.0)
[2017-09-20] MEDS ORDERED: Sodium Chloride 0.9% 1,000 ML IV STA (06:41)
[2017-09-20 06:48] LABS: ALB/GLOB RATIO 1.5 (1.1-1.8); ALBUMIN 3.8 g/dL (3.0-4.8); ALT/SGPT 26 U/L (7-56); AST/SGOT 18 U/L (14-36); BLOOD UREA NITROGEN 12 mg/dL (7-21); CALCIUM 8.5 mg/dL (8.4-10.5); GFR AFRICAN-AMERICAN > 60; GFR NON-AFRICAN AMERICAN > 60
[2017-09-20 07:24] VITALS: BP 111/79; RESP 16; TEMP 98.1; O2SAT 100
--- NOTE | 2017-09-20 14:04 | CARD ---
APPROVED REPORT EKG Measurement Heart [id number] <Conclusion> Normal sinus rhythm Possible Left atrial enlargement Borderline ECG
== END 2017-09-20 07:40 | disposition home or self-care (01) ==
LOC: ED 04:49
DX: R55 Syncope and collapse (principal)
CPT/HCPCS: 80053; 82948; 85025; 93005; 96374; 99285; J2405; J7030

== ENCOUNTER 2017-12-10 13:02 | Observation (INO) | payer MEDICAID ==
--- NOTE | 2017-12-10 13:41 | ED PDOC ---
Arrival/HPI - General Chief Complaint: Palpitations Time Seen by Provider: 12/10/17 13:35 Historian: Patient - History of Present Illness Narrative History of Present Illness (Text): 12/10/17 13:38 36 year old female with hx tachycardia presents to the ED with recurrent and persistent episodes of palpitations. Patient reports this is an ongoing issue which has been worked up with cardiac monitoring by her transformation specialist but had not found "afib". Patient reports the most recent episodes are associated with nausea and near syncope. Patient denies any chest pain/discomfort, no headache, no abd pain, no syncope. PCP: Record Press Tender: Dr. Eugene Symptom Onset: Sudden Symptom Course: Intermittent Context: Home Past Medical History - Provider Review Nursing Documentation Reviewed: Yes - Infectious Disease Hx of Infectious Diseases: None - Tetanus Immunization Tetanus Immunization: Unknown - Cardiac Hx Cardiac Disorders: No Other/Comment: pt was hospitalized for sob and abnormal d-dimer - Pulmonary Hx Respiratory Disorders: No - Neurological Hx Neurological Disorder: No - HEENT Hx HEENT Disorder: No - Renal Hx Renal Disorder: No - Endocrine/Metabolic Hx Endocrine Disorders: No - Hematological/Oncological Hx Blood Disorders: No - Integumentary Hx Dermatological Disorder: No - Musculoskeletal/Rheumatological Hx Falls: No - Gastrointestinal Hx Gastrointestinal Disorders: No - Genitourinary/Gynecological Hx Genitourinary Disorders: No Hx Urinary Tract Infection: Yes - Psychiatric Hx Psychophysiologic Disorder: No Hx Substance Use: No - Surgical History Hx Section: Yes Other/Comment: umbilicus herinal repair - Anesthesia Hx Anesthesia: Yes Hx Anesthesia Reactions: No Hx Malignant Hyperthermia: No Family/Social History - Physician Review Nursing Documentation Reviewed: Yes Family/Social History: No Known Family HX, Other Smoking Status: Never Smoked Hx Alcohol Use: No Hx Substance Use: No Allergies/Home Meds Allergies/Adverse Reactions: Allergies ciprofloxacin [From Cipro] Allergy (Verified 12/10/17 13:33) SWELLING Home Medications: Home Meds Medication Instructions Recorded Confirmed No Known Home Med 09/20/17 12/10/17 Review of Systems - Review of Systems Cardiovascular: Palpitations. absent: Chest Pain, Syncope Gastrointestinal: Nausea. absent: Abdominal Pain, Vomiting Neurological: absent: Headache Physical Exam - Physical Exam Narrative Physical Exam (Text): 12/10/17 13:41 Gen: VS reviewed, alert, well developed, well nourished, nontoxic, mild distress ENT: normal pharynx Eye: EOMI, PERRL Neck: no JVD, supple, no adenopathy CV: regular rate, regular rhythm, no rubs,no murmur, no gallops, S1, S2, pulses equal and strong Pulm: no distress, clear to auscultation, no wheeze, no rhonchi, breath sounds equal, no rales Abd: soft, nontender, no guarding, no rebound, no rigidity, normal bowel sounds Ext: no edema Skin: good color, no rash, no cyanosis Psych: responds appropriately to questions, normal affect Neuro: oriented x3, CN2-12 intact grossly, motor intact, sensation intact Vital Signs Reviewed: Yes Vital Signs Temp Pulse Resp BP Pulse Ox 12/10/17 19:12 86 16 106/65 99 12/10/17 15:50 76 16 120/68 99 12/10/17 13:26 97.8 F 96 H 17 129/83 99 Temperature: Afebrile Blood Pressure: Normal Pulse: Regular Respiratory Rate: Normal Appearance: Positive for: Well-Appearing Mental Status: Positive for: Alert and Oriented X 3 Medical Decision Making ED Course and Treatment: 12/10/17 Impression: Patient is a 36 year old female complaining recurrent and persistent episodes of palpitations. Plan: -- EKG -- Blood work -- Labs -- D-dimer -- Cardiac enzymes -- Reassess and disposition Prior Visits: Notes and results from previous visits were reviewed. 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 no ST/T wave abnormality. Interpreted by me. 12/10/17 15:06 Blood work reviewed and ordered CTA due to elevated D-dimer. 12/10/17 17:28 Discussed case with , who is aware of and agrees to admit patient under her service. 12/10/17 19:38 patient was seen for recurrent episodes of palpitations and near syncopal episodes. dimer was done as the patient reports associated shortness of breath during palpitation spells but does not feel dyspneic otherwise. despite the nondiagnostic CTA, I do not feel strongly for empirically treating for PE. It also turns out that the patient had an elevated dimer in the past with a similar clinical presentation at this hospital. Patient remained stable throughout ED course and admitted to hospitatlist service. - Lab Interpretations Lab Results: 12/10/17 14:30 12/10/17 14:30 Lab Results 12/10/17 14:30: TSH 3rd Generation 1.55 12/10/17 14:30: PT 13.0 H, INR 1.14, APTT 41.8 H, D-Dimer, Quantitative 361 H 12/10/17 14:30: WBC 4.5, RBC 4.14, Hgb 12.9, Hct 37.2, MCV 89.9, MCH 31.2, MCHC 34.7, RDW 11.8, Plt Count 247, MPV 9.8, Gran % 55.5, Lymph % (Auto) 35.7 H, [place] % (Auto) 7.2 H, Eos % (Auto) 0.9 L, Baso % (Auto) 0.7, Gran # 2.47, Lymph # (Auto) 1.6, Scre[place] # (Auto) 0.3, Eos # (Auto) 0.0, Baso # (Auto) 0.03 12/10/17 14:30: Sodium 141, Potassium 4.0, Chloride 104, Carbon Dioxide 29, Anion Gap 12, BUN 6 L, Creatinine 0.6 L, Est GFR ( Amer) > 60, Est GFR ( Non-Af Amer) > 60, Random Glucose 98, Calcium 9.4, Magnesium 1.9, Total Bilirubin 1.1, AST 23, ALT 20, Alkaline Phosphatase 53, Troponin I < 0.01, NT- Pro-B Natriuret Pep 74.0, Total Protein 7.2, Albumin 4.1, Globulin 3.1, Albumin/ Globulin Ratio 1.3 12/10/17 14:10: Urine Opiates Screen Negative, Urine Methadone Screen Negative, Ur Barbiturates Screen Negative, Ur Phencyclidine Scrn Negative, Ur Amphetamines Screen Negative, U Benzodiazepines Scrn Negative, U Oth Cocaine Metabols Negative, U Cannabinoids Screen Negative I have reviewed the lab results: Yes - RAD Interpretation Narrative RAD Interpretations (Text): 12/10/17 14:29 Chest X-ray: Creator : Bay Talamantes MD IMPRESSION: No active disease. 12/10/17 17:44 CTA chest PE Protocol: Creator : Cyndi Espinosa MD Impression: There is suboptimal opacification of the pulmonary arteries due to missed bolus of the intravenous contrast precluding evaluation for pulmonary embolus. Radiology Orders: 12/10/17 13:36 CHEST PORTABLE [RAD] Stat 12/10/17 15:06 ANGIO CHEST PE PROTOCOL [CT] Stat Esthetician: Radiologist - EKG Interpretation Interpreted by ED Physician: Yes Type: 12 lead EKG - Scribe Statement The provider has reviewed the documentation as recorded by the Scribe Mayank Marcos Provider Scribe Attestation: All medical record entries made by the Scribe were at my direction and personally dictated by me. I have reviewed the chart and agree that the record accurately reflects my personal performance of the history, physical exam, medical decision making, and the department course for this patient. I have also personally directed, reviewed, and agree with the discharge instructions and disposition. Disposition/Present on Arrival - Present on Arrival Any Indicators Present on Arrival: No History of DVT/PE: No History of Uncontrolled Diabetes: No Urinary Catheter: No History of Decub. Ulcer: No History Surgical Site Infection Following: CABG - Mediastinitis, None - Disposition Have Diagnosis and Disposition been Completed?: Yes Diagnosis: Palpitations, Near syncope Disposition: HOSPITALIZED Disposition Time: 17:32 Patient Plan: Admission Patient Problems: Current Active Problems Problem Status Onset Near syncope Acute Palpitations Acute Condition: STABLE
--- NOTE | 2017-12-10 13:52 | RAD ---
Date of service: 12/10/2017 HISTORY: dyspnea COMPARISON: 04/30/2017 FINDINGS: LUNGS: No active pulmonary disease. PLEURA: No significant pleural effusion identified, no pneumothorax apparent. CARDIOVASCULAR: Normal. OSSEOUS STRUCTURES: No significant abnormalities. VISUALIZED UPPER ABDOMEN: Normal. OTHER FINDINGS: None. IMPRESSION: No active disease.
[2017-12-10 14:59] LABS: BARBITURATES, UR NEGATIVE (NEGATIVE); BENZODIAZEPINES, UR NEGATIVE (NEGATIVE); OPIATES, UR NEGATIVE (NEGATIVE); PHENCYCLIDINE, UR NEGATIVE (NEGATIVE)
[2017-12-10 14:59] LABS: BASO # 0.03 K/mm3 (0.0-2.0); BASO % 0.7 % (0.0-3.0); EOS % 0.9 % (1.5-5.0); GRAN # 2.47 (1.4-6.5); GRAN % 55.5 % (50.0-68.0); HEMOGLOBIN 12.9 g/dL (12.0-16.0); LYMPH # 1.6 (1.2-3.4); LYMPH % 35.7 % (22.0-35.0); MEAN CELL VOLUME 89.9 fl (80.0-105.0); MEAN CORPUSCULAR HEMOGLOBIN 31.2 pg (25.0-35.0); MEAN CORPUSCULAR HGB CONC 34.7 g/dl (31.0-37.0); MEAN PLATELET VOLUME 9.8 fl (7.0-11.0); MONO # 0.3 (0.1-0.6); MONO % 7.2 % (1.0-6.0); RBC 4.14 10^6/uL (3.5-6.1); RED CELL DISTRIBUTION WIDTH 11.8 % (11.5-14.5); WHITE BLOOD COUNT 4.5 10^3/ul (4.5-11.0)
[2017-12-10 15:05] LABS: INR 1.14; PARTIAL THROMBOPLASTIN TIME 41.8 Seconds (25.1-36.5)
[2017-12-10 15:11] LABS: ALB/GLOB RATIO 1.3 (1.1-1.8); ALBUMIN 4.1 g/dL (3.0-4.8); ALT/SGPT 20 U/L (7-56); AST/SGOT 23 U/L (14-36); BLOOD UREA NITROGEN 6 mg/dL (7-21); CALCIUM 9.4 mg/dL (8.4-10.5); GFR NON-AFRICAN AMERICAN > 60
--- NOTE | 2017-12-10 15:16 | CARD ---
APPROVED REPORT Date of service: 12/10/2017 EKG Measurement Heart [id number] CO [id number] <Conclusion> Normal sinus rhythm with sinus arrhythmia Possible Left atrial enlargement Borderline ECG
[2017-12-10 15:19] LABS: TROPONIN I < 0.01 ng/mL
[2017-12-10] MEDS ORDERED: Iodixanol 320 MG/ML 100 ML BOTTLE IV ONE (16:05)
--- NOTE | 2017-12-10 17:38 | CT ---
Date of service: 12/10/17 CTA chest PE protocol Indication: Pulmonary embolism Technique: Contiguous axial images were obtained through the chest with intravenous contrast enhancement. Sagittal and coronal reconstructions were generated and reviewed. This CT exam was performed using 1 or more of the following dose reduction techniques: Automated exposure control, adjustment of the MAA and/or kV according to patient size, and/or use of iterative reconstruction technique. IV Contrast: 96 cc Visipaque 320 Radiation dose (DLP): 177.52 MGy-cm. Comparison: Chest x-ray performed 12/10/17 Findings: Visualized portions of the inferior thyroid gland appear unremarkable. The mediastinal and hilar vascular structures appear within normal limits. The heart appears within normal limits of size. There is suboptimal opacification of the pulmonary arteries due to missed bolus of the intravenous contrast precluding evaluation for pulmonary embolus. No focal consolidation. No pleural effusion. No pneumothorax. No suspicious pulmonary nodules measuring greater than 5 mm. Limited visualized portions of the upper abdomen appear grossly unremarkable. No acute osseous abnormality is detected. Impression: There is suboptimal opacification of the pulmonary arteries due to missed bolus of the intravenous contrast precluding evaluation for pulmonary embolus.
--- NOTE | 2017-12-10 19:09 | CP.PCM.HP ---
<Blue Fair - Last Filed: 12/10/17 19:20> History of Present Illness - History of Present Illness History of Present Illness: Blue Fair, PGY1 History and Physical for Dr. Cody Patient is a 36 y/o F with PMHx of migraines and recurrent UTI who presented to the ED on 12/10 for palpitations. Patient said that occasionally at night she feels palpitations. She has been admitted to the hospital for a similar complaint in the past. In the ED, patient's heart rate fluctuated from 90s-low 100s. Otherwise, vital signs are stable. She is in no acute distress. ED Utox was negative. D-dimer was 361. Troponin was negative x1. Patient went for Chest CT in the ED, which showed suboptimal opacification of pulmonary arteries due to missed bolus of IV contrast precluding evaluating for PE. Chest Xray showed no pulmonary disease. Patient was evaluated by the medical team. She was still complaining of palpitations. She denied chest pain, shortness of breath, abdominal pain, nausea, vomiting, diarrhea, headache, dizziness. She does not feel like the room is spinning. She says her palpitations usually happen at night and sometimes she experiences some lightheadedness. She denies any falls related to the lightheadedness. Patient said that she has had extensive workup with her contract associate for these symptoms. However, she has had a prior echocardiogram and holtor monitor that has been negative. A full 12 point ROS was conducted and unremarkable except as stated above. PMHx: migraines and recurrent UTI (as from prior charting) PSHx: (3 years ago), umbilical hernia repair (2 years ago) Meds: none Allergies: ciprofloxacin SocialHx: denies smoking, alcohol, and rec drug use. Denies herbal remedies or caffeine use. FamHx: non-contributory Present on Admission - Present on Admission Any Indicators Present on Admission: No History of DVT/PE: No History of Uncontrolled Diabetes: No Urinary Catheter: No Decubitus Ulcer Present: No Review of Systems - Review of Systems All systems: reviewed and no additional remarkable complaints except (as per HPI.) Past Patient History - Infectious Disease Hx of Infectious Diseases: None - Tetanus Immunizations Tetanus Immunization: Unknown - Past Social History Smoking Status: Never Smoked - CARDIAC Hx Cardiac Disorders: No Other/Comment: pt was hospitalized for sob and abnormal d-dimer - PULMONARY Hx Respiratory Disorders: No - NEUROLOGICAL Hx Neurological Disorder: No - HEENT Hx HEENT Problems: No - RENAL Hx Chronic Kidney Disease: No - ENDOCRINE/METABOLIC Hx Endocrine Disorders: No - HEMATOLOGICAL/ONCOLOGICAL Hx Blood Disorders: No - INTEGUMENTARY Hx Dermatological Problems: No - MUSCULOSKELETAL/RHEUMATOLOGICAL Hx Falls: No - GASTROINTESTINAL Hx Gastrointestinal Disorders: No - GENITOURINARY/GYNECOLOGICAL Hx Genitourinary Disorders: No Hx Urinary Tract Infection: Yes - PSYCHIATRIC Hx Psychophysiologic Disorder: No Hx Substance Use: No - SURGICAL HISTORY Hx Section: Yes Other/Comment: umbilicus herinal repair - ANESTHESIA Hx Anesthesia: Yes Hx Anesthesia Reactions: No Hx Malignant Hyperthermia: No Meds Allergies/Adverse Reactions: Allergies Allergy/AdvReac Type Severity Reaction Status Date / Time ciprofloxacin [From Cipro] Allergy SWELLING Verified 12/10/17 13:33 Physical Exam - Constitutional Appears: Well - Head Exam Head Exam: ATRAUMATIC, NORMAL INSPECTION, NORMOCEPHALIC - Eye Exam Eye Exam: EOMI, Normal appearance, PERRL Pupil Exam: NORMAL ACCOMODATION, PERRL - ENT Exam ENT Exam: Mucous Membranes Moist, Normal Exam - Neck Exam Neck exam: Positive for: Normal Inspection - Respiratory Exam Respiratory Exam: Clear to Auscultation Bilateral, NORMAL BREATHING PATTERN. absent: Rales, Rhonchi, Wheezes - Cardiovascular Exam Cardiovascular Exam: Tachycardia, REGULAR RHYTHM, +S1, +S2. absent: Systolic Murmur - GI/Abdominal Exam GI & Abdominal Exam: Normal Bowel Sounds, Soft. absent: Tenderness - Extremities Exam Extremities exam: Positive for: full ROM, normal capillary refill, normal inspection, pedal pulses present. Negative for: calf tenderness, joint swelling , pedal edema, tenderness - Back Exam Back exam: NORMAL INSPECTION - Neurological Exam Neurological exam: Alert, Oriented x3 - Skin Skin Exam: Dry, Intact, Normal Color, Warm Results - Vital Signs Recent Vital Signs: Last Vital Signs Temp 97.8 F 12/10/17 13:26 Pulse 96 H 12/10/17 13:26 Resp 17 12/10/17 13:26 BP 129/83 12/10/17 13:26 Pulse Ox 99 12/10/17 13:26 - Labs Result Diagrams: 12/10/17 14:30 12/10/17 14:30 Assessment & Plan - Assessment and Plan (Free Text) Assessment: Patient is a 36 y/o F with PMHx of recurrent UTIs and migraines who presented to the ED complaining of palpitations. Patient has been hospitalized for similar episodes in the past. She follows up regularly with her contract associate, however, workup has been negative. Patient will be monitored on the floor. Plan: Palpitations - Asymptomatic, denies cp, sob - HR in the 90s-low 100s - Cardio consulted (Dr. Conrad) - TSH - T4 - Utox negative - trop negative x1 - BNP negative - continue to monitor - EKG: NSR with possible LA enlargement. No ST elevations or depressions, or T wave inversions. - Patient claims she has had prior w/u with contract associate: normal prior echocardiograms and holtor monitors - Denies diagnosis of any abnormal arrhythmias such as Afib, AVNRT, AVRT, etc. - no electrolyte abnormalities Pulmonary Embolism (low risk) - Low risk in regards to Well's Score for DVT/PE - D-dimer 361 - VQ scan in the morning due to sub-optimal CT Chest in the ED - CT Chest: suboptimal opacification of pulmonary arteries due to missed bolus of IV contrast precluding evaluation of PE. - CXR: no active disease - Patient has had prior CTA in last hospital admission, negative for PE. Migraines - no complaints at this time; denies headaches Diet: Regular Dispo: monitor patient overnight. Case was discussed and reviewed with Attending Physician Dr. Cody. <Nia Cody - Last Filed: 12/12/17 07:40> Results - Vital Signs Recent Vital Signs: Last Vital Signs Temp 97.2 F L 12/11/17 18:13 Pulse 100 H 12/11/17 18:13 Resp 20 12/11/17 18:13 BP 121/72 12/11/17 18:13 Pulse Ox 98 12/11/17 18:13 - Labs Result Diagrams: 12/11/17 05:30 12/11/17 05:30 Labs: Laboratory Results - last 24 hr 12/11/17 12/11/17 05:30 11:12 Sodium 141 Potassium 3.8 Chloride 105 Carbon Dioxide 27 Anion Gap 13 BUN 8 Creatinine 0.6 L Est GFR ( Amer) > 60 Est GFR (Non-Af Amer) > 60 Random Glucose 92 Calcium 11.1 H Phosphorus 4.8 H Magnesium 1.9 Total Bilirubin 1.4 H AST 21 ALT 22 Alkaline Phosphatase 53 Total Protein 6.6 Albumin 3.8 Globulin 2.8 Albumin/Globulin Ratio 1.3 Urine HCG, Qual Negative Attending/Attestation - Attestation I have personally seen and examined this patient.: Yes I have fully participated in the care of the patient.: Yes I have reviewed all pertinent clinical information: Yes Notes (Text): 12/12/17 07:32 Attending note; Patient seen and examined with resident in ER. Patient is a 36 -year-old female with PMHx of migraines, UTI and palpitations is admitted with palpitations. The patient has a history of palpitations over 1 year. Had an extensive workup. Currently follows up with contract associate and banquet supervisor. EKG shows no irregular heart rhythm. Patient denies any chest pain, shortness of breath. Denies any leg swelling. Tolerating diet well. Ambulating fine.Denies any fevers, chills. Denies any urinary symptoms. Admit to telemetry for monitoring. Cardiology evaluation requested. Elevated d-dimer. CTA ordered. Patient is currently not tachycardic or hypoxic. Denies any history of anxiety. Upon discharge the patient will follow up with PMD Dr. Archuleta. Follow-up with cardiology/ EP Dr. Pearson. 12/12/17 07:39
[2017-12-10 21:54] LABS: FREE T4 1.15 ng/dL (0.78-2.19); T4 7.7 ug/dL (5.5-11.0)
[2017-12-11 06:33] LABS: MEAN CELL VOLUME 89.6 fl (80.0-105.0); MEAN CORPUSCULAR HEMOGLOBIN 30.8 pg (25.0-35.0); MEAN CORPUSCULAR HGB CONC 34.4 g/dl (31.0-37.0); RBC 4.22 10^6/uL (3.5-6.1); RED CELL DISTRIBUTION WIDTH 11.9 % (11.5-14.5); WHITE BLOOD COUNT 5.9 10^3/ul (4.5-11.0)
[2017-12-11 07:31] LABS: ALB/GLOB RATIO 1.3 (1.1-1.8); ALBUMIN 3.8 g/dL (3.0-4.8); ALT/SGPT 22 U/L (7-56); AST/SGOT 21 U/L (14-36); BLOOD UREA NITROGEN 8 mg/dL (7-21); CALCIUM 11.1 mg/dL (8.4-10.5); GFR NON-AFRICAN AMERICAN > 60
[2017-12-11 08:25] VITALS: O2SAT 98
--- NOTE | 2017-12-11 14:00 | NM ---
Date of service: 12/11/2017 COMPARISON: Not available TECHNIQUE: 43.3 mCi technetium 99-m DTPA aerosol. 3.6 mCI technetium 99-m MAA administered intravenously. FINDINGS: VENTILATION COMPONENT: No ventilatory defect. PERFUSION COMPONENT: No perfusion defect. IMPRESSION: Lowprobability ventilation perfusion scan for pulmonary embolism.
[2017-12-11] MEDS ORDERED: Tuberculin 5 Units/0.1 ml Inj ID ONE (14:58)
--- NOTE | 2017-12-11 17:54 | CON ---
DATE: 12/11/2017 REASON FOR CONSULTATION: Palpitation and dizziness. HISTORY OF PRESENT ILLNESS: The patient is 36 years old female who has no significant past medical history except for new episodes of palpitation that started one year ago. The patient is being followed by an bowling pin setters installer who performed a rhythm monitor for four weeks by an external device and was told that she does have fast heartbeat, but no arrhythmia. The patient describes her episodes of palpitation are usually at nighttime. Sometimes they wake her up from sleep and at night they are associated with dizziness. The patient denies any fainting or a fall. The patient denies any associated deficits. The patient does not take any medications and denies any history of anxiety. The patient denies any associated symptoms of nausea, vomiting, or dehydration and does not take any caffeine. SOCIAL HISTORY: Nonsmoker, nondrinker. She is a mother of two, the youngest one was 3 years old. The patient has no problem during her . MEDICATIONS: The patient is on no medications at home. PHYSICAL EXAMINATION GENERAL: The patient is a young middle-aged female who does not appear to be in any distress. VITAL SIGNS: Blood pressure 100/71, heart rate 77, temperature 97.8, and respirations 19. HEENT: Normocephalic. NECK: No JVD. CHEST: Clear. HEART: S1 and S2, regular. ABDOMEN: Soft. EXTREMITIES: No edema. LABORATORY DATA: Today's CBC is entirely within normal limit. Today's SMA-7 is within normal limit except for creatinine of 0.6. Calcium today is elevated at 11.1. Yesterday, it was within normal limit. TSH level, T4, and free T4 are all within normal limit. Urine drug screen is negative. D-dimer is elevated at 361. CT angio was performed; however, it was a suboptimal opacification with the pulmonary arteries due to missed bolus of the intravenous contrast precluding evaluation for pulmonary embolus. EKG revealed sinus rhythm at the rate of 98 with possible left atrial enlargement. Echocardiographic study performed in 11/2016, nearly one year ago revealed normal left ventricular size, systolic function as well as diastolic function and the precordium was mildly thickened. ASSESSMENT: 1. Recurrent episodes of sinus tachycardia manifesting as palpitation and dizziness. 2. Thickened pericardium by an echocardiographic study performed last year. 3. Borderline hypotension. RECOMMENDATIONS: Repeat echocardiographic study and review the chest CT scan that was performed for any evidence of pericardial calcification. In the meantime, the patient is scheduled for a ventilation-perfusion scan. Luis Conrad MD
[2017-12-11 18:14] VITALS: BP 121/72; PULSE 100; RESP 20; TEMP 97.2
--- NOTE | 2017-12-11 18:39 | US ---
HISTORY: Leg pain and swelling. Evaluate for DVT PHYSICIAN(S): Bay Otto MD. TECHNIQUE: Duplex sonography and color-flow Doppler with graded compression were used to evaluate the deep venous systems of both lower extremities. FINDINGS: The visualized deep venous systems of both lower extremities are sonographically normal and compressible. Normal wave forms and augmentation are seen. There is no sonographic evidence for deep venous thrombosis in the visualized segments of both lower extremities. IMPRESSION: No sonographic evidence for deep venous thrombosis in the visualized segments of both lower extremities.
--- NOTE | 2017-12-11 19:29 | CARD ---
APPROVED REPORT Date of service: 12/11/2017 EXAM: Two-dimensional and M-mode echocardiogram with Doppler and color Doppler. INDICATION PERICARDIUM/LVFX 2D DIMENSIONS Left Atrium (2D)3.3 (1.6-4.0cm)IVSd0.7 (0.7-1.1cm) LVDd3.7 (3.9-5.9cm)PWd0.8 (0.7-1.1cm) LVDs2.6 (2.5-4.0cm)FS (%) 29.2 % LVEF (%)56.8 (>50%) M-Mode DIMENSIONS Aortic Root2.60 (2.2-3.7cm)Aortic Cusp Exc.2.00 (1.5-2.0cm) Aortic Valve AoV Peak Jgqbuvah373.0cm/Lu Peak GR.6mmHg Mitral Valve MV E Ywfonrvv37.3cm/sMV A Kkmbmmwv99.0cm/sE/A ratio1.3 TDI Lateral E' Peak V19.10cm/sMedial E' Peak V9.85cm/sE/Lateral E'3.9 E/Medial E'7.6 Pulmonary Valve PV Peak Dbjqcfrj92.0cm/sPV Peak Grad.2mmHg Tricuspid Valve TR Peak Xlhyokei113nf/sRAP [id number] Peak Gr.21mmHg [id number] LEFT VENTRICLE The left ventricle is normal size. There is normal left ventricular wall thickness. The left ventricular function is normal. The left ventricular ejection fraction is within the normal range. There is normal LV segmental wall motion. The left ventricular diastolic function is normal. RIGHT VENTRICLE The right ventricle is normal size. There is normal right ventricular wall thickness. The right ventricular systolic function is normal. ATRIA The left atrium size is normal. The right atrium size is normal. AORTIC VALVE The aortic valve is normal in structure. No aortic regurgitation is present. There is no aortic valvular stenosis. MITRAL VALVE The mitral valve is moderately thickened. There is no mitral valve regurgitation noted. There is no mitral valve stenosis. TRICUSPID VALVE The tricuspid valve is normal in structure. There is mild tricuspid regurgitation. GREAT VESSELS The aortic root is normal in size. The IVC is normal in size and collapses >50% with inspiration. PERICARDIAL EFFUSION There is no pericardial effusion. <Conclusion> The left ventricle is normal size. There is normal left ventricular wall thickness. The left ventricular function is normal. The left ventricular ejection fraction is within the normal range. There is normal LV segmental wall motion. The left ventricular diastolic function is normal. There is mild tricuspid regurgitation.
--- NOTE | 2017-12-11 22:01 | CP.PCM.DIS ---
<[place] - Last Filed: 12/11/17 21:55> Provider - Provider Date of Admission: 12/10/17 17:32 Attending physician: Nia Cody MD Primary care physician: Bertha Plunkett MD Time Spent in preparation of Discharge (in minutes): 120 Hospital Course - Lab Results Lab Results: Most Recent Lab Values WBC 5.9 10^3/ul (4.5-11.0) D 12/11/17 05:30 RBC 4.22 10^6/uL (3.5-6.1) 12/11/17 05:30 Hgb 13.0 g/dL (12.0-16.0) 12/11/17 05:30 Hct 37.8 % (36.0-48.0) 12/11/17 05:30 MCV 89.6 fl (80.0-105.0) 12/11/17 05:30 MCH 30.8 pg (25.0-35.0) 12/11/17 05:30 MCHC 34.4 g/dl (31.0-37.0) 12/11/17 05:30 RDW 11.9 % (11.5-14.5) 12/11/17 05:30 Plt Count 259 10^3/uL (120.0-450.0) 12/11/17 05:30 MPV 10.0 fl (7.0-11.0) 12/11/17 05:30 Gran % 55.5 % (50.0-68.0) 12/10/17 14:30 Lymph % (Auto) 35.7 % (22.0-35.0) H 12/10/17 14:30 [place] % (Auto) 7.2 % (1.0-6.0) H 12/10/17 14:30 Eos % (Auto) 0.9 % (1.5-5.0) L 12/10/17 14:30 Baso % (Auto) 0.7 % (0.0-3.0) 12/10/17 14:30 Gran # 2.47 (1.4-6.5) 12/10/17 14:30 Lymph # (Auto) 1.6 (1.2-3.4) 12/10/17 14:30 [place] # (Auto) 0.3 (0.1-0.6) 12/10/17 14:30 Eos # (Auto) 0.0 (0.0-0.7) 12/10/17 14:30 Baso # (Auto) 0.03 K/mm3 (0.0-2.0) 12/10/17 14:30 PT 13.0 SECONDS (9.4-12.5) H 12/10/17 14:30 INR 1.14 12/10/17 14:30 APTT 41.8 Seconds (25.1-36.5) H 12/10/17 14:30 D-Dimer, Quantitative 361 ng/mlDDU (0-243) H 12/10/17 14:30 Sodium 141 mmol/L (132-148) 12/11/17 05:30 Potassium 3.8 mmol/L (3.6-5.0) 12/11/17 05:30 Chloride 105 mmol/L (98-107) 12/11/17 05:30 Carbon Dioxide 27 mmol/L (21-33) 12/11/17 05:30 Anion Gap 13 (10-20) 12/11/17 05:30 BUN 8 mg/dL (7-21) 12/11/17 05:30 Creatinine 0.6 mg/dl (0.7-1.2) L 12/11/17 05:30 Est GFR ( Amer) > 60 12/11/17 05:30 Est GFR (Non-Af Amer) > 60 12/11/17 05:30 Random Glucose 92 mg/dL (70-110) 12/11/17 05:30 Calcium 11.1 mg/dL (8.4-10.5) H 12/11/17 05:30 Phosphorus 4.8 mg/dL (2.5-4.5) H 12/11/17 05:30 Magnesium 1.9 mg/dL (1.7-2.2) 12/11/17 05:30 Total Bilirubin 1.4 mg/dL (0.2-1.3) H 12/11/17 05:30 AST 21 U/L (14-36) 12/11/17 05:30 ALT 22 U/L (7-56) 12/11/17 05:30 Alkaline Phosphatase 53 U/L (38-126) 12/11/17 05:30 Troponin I < 0.01 ng/mL 12/10/17 14:30 NT-Pro-B Natriuret Pep 74.0 pg/mL (0-450) 12/10/17 14:30 Total Protein 6.6 g/dL (5.8-8.3) 12/11/17 05:30 Albumin 3.8 g/dL (3.0-4.8) 12/11/17 05:30 Globulin 2.8 gm/dL 12/11/17 05:30 Albumin/Globulin Ratio 1.3 (1.1-1.8) 12/11/17 05:30 Free T4 1.15 ng/dL (0.78-2.19) 12/10/17 14:45 Thyroxine (T4) 7.7 ug/dL (5.5-11.0) 12/10/17 14:45 TSH 3rd Generation 2.83 mIU/mL (0.46-4.68) 12/11/17 05:30 Urine HCG, Qual Negative (NEGATIVE) 12/11/17 11:12 Urine Opiates Screen Negative (NEGATIVE) 12/10/17 14:10 Urine Methadone Screen Negative (NEGATIVE) 12/10/17 14:10 Ur Barbiturates Screen Negative (NEGATIVE) 12/10/17 14:10 Ur Phencyclidine Scrn Negative (NEGATIVE) 12/10/17 14:10 Ur Amphetamines Screen Negative (NEGATIVE) 12/10/17 14:10 U Benzodiazepines Scrn Negative (NEGATIVE) 12/10/17 14:10 U Oth Cocaine Metabols Negative (NEGATIVE) 12/10/17 14:10 U Cannabinoids Screen Negative (NEGATIVE) 12/10/17 14:10 - Hospital Course Hospital Course: Hospital Admission: Patient is a 36 y/o F with PMHx of migraines and recurrent UTI who presented to the ED with recurrent and persistent episodes of palpitations associated with nausea and near syncope. Patient has had a prior admission to the hospital for the same reason. Patient reported a history of palpitations that was being worked up by her buncher machine (Dr. Archuleta). EKG was ordered in the ED revealing NSR, possible LA enlargement, and no ST or T wave changes. Troponins were negative x1 in the ED. D-dimer returned slightly elevated at 361, but follow-up CT angiography revealed suboptimal opacification of pulmonary arteries due to missed bolus of IV contrast precluding evaluation of PE. Patient was admitted to tele under hospitalist service. V/Q scan in the morning was negative for PE, further confirming low suspicion for embolism. Venous doppler of the lower extremity was also negative for DVT. Cardiology consulted (Dr. Conrad), patient received Echo which showed EF 57% and was grossly normal. On the floor, patient has been asymptomatic. Vital signs are stable and she is medically stable. Upon Discharge: Patient is medically stable for discharge. Patient has been cleared by cardiology for discharge. Patient may follow up with her buncher machine within 1 week. Patient may follow up with her PMD within 72 hours. Discharge Exam - Head Exam Head Exam: ATRAUMATIC, NORMAL INSPECTION, NORMOCEPHALIC - Eye Exam Eye Exam: EOMI, Normal appearance, PERRL - ENT Exam ENT Exam: Mucous Membranes Moist, Normal Exam - Neck Exam Neck exam: Normal Inspection - Respiratory Exam Respiratory Exam: Clear to PA & Lateral, NORMAL BREATHING PATTERN, UNREMARKABLE - Cardiovascular Exam Cardiovascular Exam: RRR, +S1, +S2 - GI/Abdominal Exam GI & Abdominal Exam: Normal Bowel Sounds - Extremities Exam Extremities exam: full ROM, normal capillary refill, normal inspection - Back Exam Back exam: NORMAL INSPECTION - Neurological Exam Neurological exam: Alert, CN II-XII Intact, Normal Gait, Oriented x3 - Psychiatric Exam Psychiatric exam: Normal Affect, Normal Mood - Skin Skin Exam: Dry, Intact, Normal Color, Warm Discharge Plan - Follow Up Plan Condition: STABLE Disposition: HOME/ ROUTINE Instructions: Arrhythmias (DC), TB Screening Test, Palpitations (DC) Additional Instructions: Please follow up with your buncher machine within 1 week. Please follow up with your PMD Dr. madrid within 72 hours for PPD reading Please return to ED if symptoms reoccur. Referrals: Bertha Plunkett MD [Primary Care Provider] - <Nia Cody - Last Filed: 12/12/17 07:44> Provider - Provider Date of Admission: 12/10/17 17:32 Attending physician: Nia Cody MD Primary care physician: Bertha Plunkett MD Hospital Course - Lab Results Lab Results: Most Recent Lab Values WBC 5.9 10^3/ul (4.5-11.0) D 12/11/17 05:30 RBC 4.22 10^6/uL (3.5-6.1) 12/11/17 05:30 Hgb 13.0 g/dL (12.0-16.0) 12/11/17 05:30 Hct 37.8 % (36.0-48.0) 12/11/17 05:30 MCV 89.6 fl (80.0-105.0) 12/11/17 05:30 MCH 30.8 pg (25.0-35.0) 12/11/17 05:30 MCHC 34.4 g/dl (31.0-37.0) 12/11/17 05:30 RDW 11.9 % (11.5-14.5) 12/11/17 05:30 Plt Count 259 10^3/uL (120.0-450.0) 12/11/17 05:30 MPV 10.0 fl (7.0-11.0) 12/11/17 05:30 Gran % 55.5 % (50.0-68.0) 12/10/17 14:30 Lymph % (Auto) 35.7 % (22.0-35.0) H 12/10/17 14:30 [place] % (Auto) 7.2 % (1.0-6.0) H 12/10/17 14:30 Eos % (Auto) 0.9 % (1.5-5.0) L 12/10/17 14:30 Baso % (Auto) 0.7 % (0.0-3.0) 12/10/17 14:30 Gran # 2.47 (1.4-6.5) 12/10/17 14:30 Lymph # (Auto) 1.6 (1.2-3.4) 12/10/17 14:30 [place] # (Auto) 0.3 (0.1-0.6) 12/10/17 14:30 Eos # (Auto) 0.0 (0.0-0.7) 12/10/17 14:30 Baso # (Auto) 0.03 K/mm3 (0.0-2.0) 12/10/17 14:30 PT 13.0 SECONDS (9.4-12.5) H 12/10/17 14:30 INR 1.14 12/10/17 14:30 APTT 41.8 Seconds (25.1-36.5) H 12/10/17 14:30 D-Dimer, Quantitative 361 ng/mlDDU (0-243) H 12/10/17 14:30 Sodium 141 mmol/L (132-148) 12/11/17 05:30 Potassium 3.8 mmol/L (3.6-5.0) 12/11/17 05:30 Chloride 105 mmol/L (98-107) 12/11/17 05:30 Carbon Dioxide 27 mmol/L (21-33) 12/11/17 05:30 Anion Gap 13 (10-20) 12/11/17 05:30 BUN 8 mg/dL (7-21) 12/11/17 05:30 Creatinine 0.6 mg/dl (0.7-1.2) L 12/11/17 05:30 Est GFR ( Amer) > 60 12/11/17 05:30 Est GFR (Non-Af Amer) > 60 12/11/17 05:30 Random Glucose 92 mg/dL (70-110) 12/11/17 05:30 Calcium 11.1 mg/dL (8.4-10.5) H 12/11/17 05:30 Phosphorus 4.8 mg/dL (2.5-4.5) H 12/11/17 05:30 Magnesium 1.9 mg/dL (1.7-2.2) 12/11/17 05:30 Total Bilirubin 1.4 mg/dL (0.2-1.3) H 12/11/17 05:30 AST 21 U/L (14-36) 12/11/17 05:30 ALT 22 U/L (7-56) 12/11/17 05:30 Alkaline Phosphatase 53 U/L (38-126) 12/11/17 05:30 Troponin I < 0.01 ng/mL 12/10/17 14:30 NT-Pro-B Natriuret Pep 74.0 pg/mL (0-450) 12/10/17 14:30 Total Protein 6.6 g/dL (5.8-8.3) 12/11/17 05:30 Albumin 3.8 g/dL (3.0-4.8) 12/11/17 05:30 Globulin 2.8 gm/dL 12/11/17 05:30 Albumin/Globulin Ratio 1.3 (1.1-1.8) 12/11/17 05:30 Free T4 1.15 ng/dL (0.78-2.19) 12/10/17 14:45 Thyroxine (T4) 7.7 ug/dL (5.5-11.0) 12/10/17 14:45 TSH 3rd Generation 2.83 mIU/mL (0.46-4.68) 12/11/17 05:30 Urine HCG, Qual Negative (NEGATIVE) 12/11/17 11:12 Urine Opiates Screen Negative (NEGATIVE) 12/10/17 14:10 Urine Methadone Screen Negative (NEGATIVE) 12/10/17 14:10 Ur Barbiturates Screen Negative (NEGATIVE) 12/10/17 14:10 Ur Phencyclidine Scrn Negative (NEGATIVE) 12/10/17 14:10 Ur Amphetamines Screen Negative (NEGATIVE) 12/10/17 14:10 U Benzodiazepines Scrn Negative (NEGATIVE) 12/10/17 14:10 U Oth Cocaine Metabols Negative (NEGATIVE) 12/10/17 14:10 U Cannabinoids Screen Negative (NEGATIVE) 12/10/17 14:10 Attending/Attestation - Attestation I have personally seen and examined this patient.: Yes I have fully participated in the care of the patient.: Yes I have reviewed all pertinent clinical information, including history, physical exam and plan: Yes Notes (Text): 12/12/17 07:40 Attending note; Patient seen and examined with resident. No acute event overnight. Currently patient denies any palpitations. Patient is a 36 -year-old female with PMHx of migraines, UTI and palpitations is admitted with palpitations. The patient has a history of palpitations over 1 year. Had an extensive workup. Patient has [employer]Line monitor with her to communicate with her buncher machine. Currently follows up with buncher machine and brown sourer. EKG normal sinus rhythm. Cardiology evaluation appreciated. Venous Doppler is negative. VQ scan is negative. Echocardiogram normal without significant abnormality. Elevated d-dimer. CTA is indeterminant study due to timing of the dye. Patient will be discharged home today . Upon discharge the patient will follow up with PMD Dr. Archuleta in 2 to 3 days. Follow-up with cardiology/ EP Dr. Pearson. The diagnosis, follow-up plan discussed with patient in detail.
== END 2017-12-11 18:30 | disposition home or self-care (01) ==
LOC: ED 13:02 → ERH 17:32 → 3RNO 21:48
PROVIDERS: ADMIT Internal Medicine; ATTEND Internal Medicine
DX: R55 Syncope and collapse (principal); R00.2 Palpitations; G43.909 Migraine, unspecified, not intractable, without status migrainosus; I95.9 Hypotension, unspecified; Z87.440 Personal history of urinary (tract) infections
CPT/HCPCS: 36415; 71045; 71275; 78582; 80053; 80324; 80345; 80346; 80349; 80353; 80358; 80361; 83735; 83880; 83992; 84100; 84439; 84443; 84484; 84703; 85025; 85027; 85378; 85610; 85730; 93005; 93306; 93970; 99285; G0378; Q9967

== ENCOUNTER 2018-02-10 09:49 | Emergency (ER) | payer MEDICAID ==
[2018-02-10 10:07] VITALS: TEMP 98; O2SAT 100
--- NOTE | 2018-02-10 10:42 | ED PDOC ---
Arrival/HPI - General Chief Complaint: ENT Problem Historian: Patient - History of Present Illness Narrative History of Present Illness (Text): 02/10/18 10:38 37yr old female presents today with a 2 week history of sore throat. Patient states pain is worse at night when she is lying flat. She denies trismus or drooling. She denies fevers at home. Patient denies a feeling of swelling. She denies difficulty breathing or swallowing. She denies cough. Denies nasal congestion. She denies sick contacts. Patient states she's been Past Medical History - Provider Review Nursing Documentation Reviewed: Yes - Travel History Have you recently traveled outside [place] w/in the past 3 mons?: No - Infectious Disease Hx of Infectious Diseases: None - Tetanus Immunization Tetanus Immunization: Unknown - Cardiac Hx Cardiac Disorders: Yes (tachycardia) - Pulmonary Hx Respiratory Disorders: No - Neurological Hx Neurological Disorder: Yes Hx Migraine: Yes - HEENT Hx HEENT Disorder: No - Renal Hx Renal Disorder: No - Endocrine/Metabolic Hx Endocrine Disorders: No - Hematological/Oncological Hx Blood Disorders: No - Integumentary Hx Dermatological Disorder: No - Musculoskeletal/Rheumatological Hx Musculoskeletal Disorders: No - Gastrointestinal Hx Gastrointestinal Disorders: Yes (hernia repair) - Genitourinary/Gynecological Hx Genitourinary Disorders: Yes Hx Urinary Tract Infection: Yes - Psychiatric Hx Psychophysiologic Disorder: No Hx Substance Use: No - Surgical History Other/Comment: umbilicus herinal repair - Anesthesia Hx Anesthesia: Yes Hx Anesthesia Reactions: No Hx Malignant Hyperthermia: No Family/Social History - Physician Review Nursing Documentation Reviewed: Yes Family/Social History: Unknown Family HX Smoking Status: Never Smoked Hx Alcohol Use: No Hx Substance Use: No Allergies/Home Meds Allergies/Adverse Reactions: Allergies ciprofloxacin [From Cipro] Allergy (Verified 02/10/18 10:09) SWELLING Review of Systems - Review of Systems Constitutional: Fevers. absent: Fatigue ENT: Sore Throat. absent: Sinus Congestion Respiratory: absent: SOB, Cough Cardiovascular: absent: Chest Pain, Palpitations Gastrointestinal: absent: Abdominal Pain, Nausea, Vomiting Musculoskeletal: absent: Arthralgias Skin: absent: Rash, Pruritis Neurological: absent: Headache, Dizziness Psychiatric: absent: Anxiety, Depression Physical Exam Vital Signs Reviewed: Yes Vital Signs Temp Pulse Resp BP Pulse Ox 02/10/18 10:06 98.0 F 106 H 17 102/77 100 Temperature: Afebrile Blood Pressure: Normal Pulse: Tachycardic Respiratory Rate: Normal Appearance: Positive for: Well-Appearing, Non-Toxic, Comfortable Pain Distress: None Mental Status: Positive for: Alert and Oriented X 3 - Systems Exam Head: Present: Atraumatic Mouth: Present: Moist Mucous Membranes, Normal Lips, Normal Tounge. No: Drooling, Trismus Pharnyx: Present: ERYTHEMA, Other (+ post nasal drip noted.). No: EXUDATE, TONSILS ENLARGED, Peritonsilar Swelling, Uvular Deviation, Muffled/Hoarse Voice, Strider, Soft Palate/Uvular Edema Nose (External): Present: Atraumatic Neck: Present: Normal Range of Motion, Trachea Midline. No: Lymphadenopathy Respiratory/Chest: Present: Clear to Auscultation, Good Air Exchange. No: Respiratory Distress, Accessory Muscle Use Cardiovascular: Present: Regular Rate and Rhythm, Normal S1, S2. No: Murmurs Abdomen: No: Tenderness, Distention, Rebound, Guarding Back: Present: Normal Inspection Neurological: Present: GCS=15, Speech Normal Skin: Present: Warm, Dry, Normal Color. No: Rashes Psychiatric: Present: Alert, Oriented x 3 Medical Decision Making ED Course and Treatment: 02/10/18 11:06 Patient is nontoxic well appearing in no distress. Tolerating p.o. fluids and solids toradol amoxicillin I advised follow up with primary care physician and ENT specialist within the next 2 days, advised to increase fluids take medications as prescribed and return if symptoms worsen persist or if new symptoms develop Patient verbalizes understanding of discharge instructions and need for immediate followup. all aspects of this case were discussed the attending of record. IMPRESSION; pharyngitis Motrin every 6 hours as needed for pain/fever reduction Increase fluids Amoxicillin: 3 times daily x10 days flonase; 2 sprays each nostril once daily. Follow up primary care physician within the next 2 days Saltwater gargles, throat lozenges Return if symptoms worsen persist or if new symptoms develop Disposition/Present on Arrival - Present on Arrival Any Indicators Present on Arrival: No History of DVT/PE: No History of Uncontrolled Diabetes: No Urinary Catheter: No History of Decub. Ulcer: No History Surgical Site Infection Following: None - Disposition Have Diagnosis and Disposition been Completed?: Yes Diagnosis: Acute pharyngitis Disposition: HOME/ ROUTINE Disposition Time: 10:36 Patient Plan: Discharge Patient Problems: Current Active Problems Problem Status Onset Acute pharyngitis Acute Condition: GOOD Discharge Instructions (ExitCare): Sore Throat, Adult (DC) Additional Instructions: Motrin every 6 hours as needed for pain/fever reduction Increase fluids Amoxicillin: 3 times daily x10 days flonase; 2 sprays each nostril once daily. Follow up primary care physician within the next 2 days Saltwater gargles, throat lozenges Return if symptoms worsen persist or if new symptoms develop Prescriptions: Amoxicillin 500 mg PO TID #30 tab Fluticasone Nasal [Flonase] 2 spr NS DAILY #1 spr Ibuprofen [Motrin Tab] 400 mg PO Q6H PRN #20 tab PRN Reason: Pain, Mild (1-3) Referrals: Bertha Plunkett MD [Primary Care Provider] - Follow up with primary Bob Rutledge DO [Staff Provider] - Follow up with primary
[2018-02-10 11:21] VITALS: BP 110/80; PULSE 88; RESP 18
== END 2018-02-10 11:21 | disposition home or self-care (01) ==
LOC: ED 09:49
DX: J02.9 Acute pharyngitis, unspecified (principal)
CPT/HCPCS: 96372; 99284; J1885

== ENCOUNTER 2018-03-24 11:30 | Emergency (ER) | payer MEDICAID ==
[2018-03-24] MEDS ORDERED: Sodium Chloride 0.9% 1,000 ML IV STA (11:48)
[2018-03-24 11:51] VITALS: TEMP 98
--- NOTE | 2018-03-24 11:57 | ED PDOC ---
Arrival/HPI - General Time Seen by Provider: 03/24/18 11:31 Historian: Patient - History of Present Illness Narrative History of Present Illness (Text): 03/24/18 11:49 37 year old female, with past medical history of migraines and recurrent UTI, presents to the ED via EMS complaining of a transient episode of palpitations associated with lightheadedness while eating breakfast this morning. Patient reports a sudden sensation of "heart racing", prompting her to present to the ED for medical evaluation. Of note, patient has been evaluated multiple times in the ED for similar symptoms in the past without any significant findings. Patient reports symptoms are similar to prior episodes. Patient denies any other associated somatic complaints. Patient denies any fevers, chills, headache, chest pain, shortness of breath, dyspnea on exertion, cough, abdominal pain, nausea, vomiting, diarrhea, back pain, neck pain, or any other complaints. Time/Duration: Prior to Arrival Symptom Onset: Gradual Symptom Course: Improving Activities at Onset: Light Context: Home Past Medical History - Provider Review Nursing Documentation Reviewed: Yes - Infectious Disease Hx of Infectious Diseases: None - Tetanus Immunization Tetanus Immunization: Unknown - Cardiac Hx Cardiac Disorders: Yes (tachycardia) - Pulmonary Hx Respiratory Disorders: No - Neurological Hx Neurological Disorder: Yes Hx Migraine: Yes - HEENT Hx HEENT Disorder: No - Renal Hx Renal Disorder: No - Endocrine/Metabolic Hx Endocrine Disorders: No - Hematological/Oncological Hx Blood Disorders: No - Integumentary Hx Dermatological Disorder: No - Musculoskeletal/Rheumatological Hx Musculoskeletal Disorders: No - Gastrointestinal Hx Gastrointestinal Disorders: Yes (hernia repair) - Genitourinary/Gynecological Hx Genitourinary Disorders: Yes Hx Urinary Tract Infection: Yes - Psychiatric Hx Psychophysiologic Disorder: No Hx Substance Use: No - Surgical History Other/Comment: umbilicus herinal repair - Anesthesia Hx Anesthesia: Yes Hx Anesthesia Reactions: No Hx Malignant Hyperthermia: No Family/Social History - Physician Review Nursing Documentation Reviewed: Yes Family/Social History: Unknown Family HX Smoking Status: Never Smoked Hx Alcohol Use: No Hx Substance Use: No Allergies/Home Meds Allergies/Adverse Reactions: Allergies ciprofloxacin [From Cipro] Allergy (Verified 02/10/18 10:09) SWELLING metoclopramide [From Reglan] Allergy (Verified 03/24/18 12:00) SWELLING Home Medications: Home Meds Medication Instructions Recorded Confirmed RX: No Known Home Med 12/18/18 12/18/18 Review of Systems - Physician Review All systems were reviewed & negative as marked: Yes - Review of Systems Constitutional: absent: Fevers Eyes: absent: Vision Changes Respiratory: absent: SOB, Cough Cardiovascular: Palpitations. absent: Chest Pain Gastrointestinal: absent: Abdominal Pain, Diarrhea, Nausea, Vomiting Genitourinary Female: absent: Dysuria Musculoskeletal: absent: Back Pain, Neck Pain Skin: absent: Rash Neurological: Dizziness. absent: Headache Endocrine: absent: Diaphoresis Physical Exam Appearance: Positive for: Other (Anxious appearing) Pain Distress: None Mental Status: Positive for: Alert and Oriented X 3 - Systems Exam Head: Present: Atraumatic, Normocephalic Pupils: Present: PERRL Extroacular Muscles: Present: EOMI Conjunctiva: Present: Normal Respiratory/Chest: Present: Clear to Auscultation, Good Air Exchange. No: Respiratory Distress, Accessory Muscle Use Cardiovascular: Present: Regular Rate and Rhythm, Normal S1, S2. No: Murmurs Abdomen: No: Tenderness, Distention, Peritoneal Signs Back: Present: Normal Inspection Upper Extremity: Present: Normal Inspection. No: Cyanosis, Edema Lower Extremity: Present: Normal Inspection. No: Edema Neurological: Present: GCS=15, CN II-XII Intact, Speech Normal Skin: Present: Warm, Dry, Normal Color. No: Rashes Psychiatric: Present: Alert, Oriented x 3, Anxious Medical Decision Making ED Course and Treatment: 03/24/18 11:47 Impression: 37 year old female presents tot Emergency department complaining of an episode of palpitations associated with lightheadedness. suspect anxiety ro metabolci cardiac, infectious etiology Plan: -- EKG -- Labs -- IV Fluids -- Zofran -- Urinalysis, hcG -- Reassess and disposition Prior Visits: Notes and results from previous visits were reviewed. Progress Notes: 03/24/18 11:45 EKG: Ordered, reviewed, and independently interpreted the EKG. Rate : 108 BPM Rhythm : Sinus Tachycardia Interpretation : Non-specific ST/T wave changes. 03/24/18 19:58 pt with numerous presentations for similar. tachycardia and all symptoms resolved in er. labs neg. ua neg. pt s/p holter with known sinus tach. previous admission s/p w/u. advise close otupt fu. - EKG Interpretation Interpreted by ED Physician: Yes Type: 12 lead EKG - Scribe Statement The provider has reviewed the documentation as recorded by the Scribe Elizabeth Nicholas. All medical record entries made by the Scribe were at my direction and personally dictated by me. I have reviewed the chart and agree that the record accurately reflects my personal performance of the history, physical exam, medical decision making, and the department course for this patient. I have also personally directed, reviewed, and agree with the discharge instructions and disposition. Disposition/Present on Arrival - Present on Arrival Any Indicators Present on Arrival: No History of DVT/PE: No History of Uncontrolled Diabetes: No Urinary Catheter: No History Surgical Site Infection Following: None - Disposition Have Diagnosis and Disposition been Completed?: Yes Diagnosis: Palpitations, Near syncope Disposition: HOME/ ROUTINE Disposition Time: 13:15 Condition: STABLE Discharge Instructions (ExitCare): Palpitations, Near Fainting Additional Instructions: follow up with your doctor/specialist. return to er with any worsening symptoms or concerns. Referrals: [facility] [Outside] - [place] up with [place] [facility] [place] - Follow up with primary Luis Conrad MD [Staff Provider] - Follow up with primary Forms: [employer] (Slovak)
[2018-03-24 12:22] LABS: URINE APPEARANCE CLEAR (CLEAR); URINE BILIRUBIN NEGATIVE (NEGATIVE); URINE BLOOD NEGATIVE (NEGATIVE); URINE COLOR YELLOW (YELLOW); URINE GLUCOSE (UA) NEGATIVE (NEGATIVE); URINE LEUKOCYTE ESTERASE SMALL Leu/uL (NEGATIVE); URINE PROTEIN NEGATIVE mg/dL (<30 mg/dL); URINE UROBILINOGEN 0.2 E.U./dL (<1 E.U./dL)
[2018-03-24 12:27] LABS: URINE BACTERIA TRACE /hpf (NEG); URINE RBC 0 - 2 /hpf (0-2)
[2018-03-24 12:42] LABS: BASO # 0.03 K/mm3 (0.0-2.0); BASO % 0.5 % (0.0-3.0); EOS # 0.2 (0.0-0.7); EOS % 3.2 % (1.5-5.0); GRAN # 3.63 (1.4-6.5); GRAN % 64.7 % (50.0-68.0); HEMOGLOBIN 14.6 g/dL (12.0-16.0); LYMPH # 1.2 (1.2-3.4); LYMPH % 21.5 % (22.0-35.0); MEAN CELL VOLUME 90.3 fl (80.0-105.0); MEAN CORPUSCULAR HEMOGLOBIN 31.3 pg (25.0-35.0); MEAN CORPUSCULAR HGB CONC 34.7 g/dl (31.0-37.0); MEAN PLATELET VOLUME 10.1 fl (7.0-11.0); MONO # 0.6 (0.1-0.6); MONO % 10.1 % (1.0-6.0); RBC 4.66 10^6/uL (3.5-6.1); RED CELL DISTRIBUTION WIDTH 12.1 % (11.5-14.5); WHITE BLOOD COUNT 5.6 10^3/uL (4.5-11.0)
[2018-03-24 12:51] LABS: ALB/GLOB RATIO 1.4 (1.1-1.8); ALBUMIN 4.9 g/dL (3.0-4.8); ALT/SGPT 17 U/L (7-56); AST/SGOT 24 U/L (14-36); BLOOD UREA NITROGEN 11 mg/dL (7-21); CALCIUM 9.8 mg/dL (8.4-10.5); GFR NON-AFRICAN AMERICAN > 60
[2018-03-24 12:52] LABS: INR 1.1; PARTIAL THROMBOPLASTIN TIME 37.2 Seconds (25.1-36.5); PROTHROMBIN TIME 12.7 SECONDS (9.4-12.5)
[2018-03-24 13:02] LABS: TROPONIN I < 0.01 ng/mL
[2018-03-24 13:16] VITALS: BP 107/67; PULSE 85; RESP 16; O2SAT 98
--- NOTE | 2018-03-25 07:56 | CARD ---
APPROVED REPORT Date of service: 03/24/2018 EKG Measurement Heart [id number] <Conclusion> Sinus tachycardia Possible Left atrial enlargement NSSTW changes
== END 2018-03-24 13:15 | disposition home or self-care (01) ==
LOC: ED 11:30
DX: R00.2 Palpitations (principal); R55 Syncope and collapse
CPT/HCPCS: 80053; 81001; 82550; 83615; 83735; 84484; 84703; 85025; 85610; 85730; 87086; 93005; 96360; 99283; J7030

== ENCOUNTER 2018-04-13 15:16 | Emergency (ER) | payer MEDICAID ==
[2018-04-13 16:36] VITALS: RESP 18
[2018-04-13 16:39] VITALS: BMI 20.6
[2018-04-13 18:07] LABS: BASO # 0.03 K/mm3 (0.0-2.0); BASO % 0.4 % (0.0-3.0); EOS # 0.1 (0.0-0.7); EOS % 1.8 % (1.5-5.0); GRAN # 4.47 (1.4-6.5); GRAN % 60.9 % (50.0-68.0); HEMOGLOBIN 12.8 g/dL (12.0-16.0); LYMPH % 27.8 % (22.0-35.0); MEAN CELL VOLUME 92.9 fl (80.0-105.0); MEAN CORPUSCULAR HEMOGLOBIN 31.2 pg (25.0-35.0); MEAN CORPUSCULAR HGB CONC 33.6 g/dl (31.0-37.0); MEAN PLATELET VOLUME 10.1 fl (7.0-11.0); MONO # 0.7 (0.1-0.6); MONO % 9.1 % (1.0-6.0); RBC 4.1 10^6/uL (3.5-6.1); WHITE BLOOD COUNT 7.3 10^3/uL (4.5-11.0)
[2018-04-13 18:43] LABS: ALB/GLOB RATIO 1.5 (1.1-1.8); ALBUMIN 4.1 g/dL (3.0-4.8); ALT/SGPT 29 U/L (7-56); AST/SGOT 20 U/L (14-36); BLOOD UREA NITROGEN 10 mg/dL (7-21); CALCIUM 9.5 mg/dL (8.4-10.5); GFR NON-AFRICAN AMERICAN > 60
--- NOTE | 2018-04-13 18:49 | ED PDOC ---
Arrival/HPI - General Chief Complaint: Lower Extremity Problem/Injury Time Seen by Provider: 04/13/18 15:37 Historian: Patient - History of Present Illness Narrative History of Present Illness (Text): 04/13/18 19:14 37 year old female presents today with a four-day history of bilateral calf pain. Patient denies any trauma or injury. Patient describes a cramping sensation in the calves bilaterally. Patient states pain comes and goes and has worsened over the past 4 days. No medications have been taken for pain at home. Patient denies numbness weakness or tingling in the extremities. No chest pain or shortness of breath. No abdominal pain. No urinary symptoms. Patient denies recent travel or oral contraception. No other complaints Past Medical History - Provider Review Nursing Documentation Reviewed: Yes - Travel History Have you recently traveled outside [place] w/in the past 3 mons?: No - Infectious Disease Hx of Infectious Diseases: None - Tetanus Immunization Tetanus Immunization: Unknown - Cardiac Hx Cardiac Disorders: Yes (tachycardia) - Pulmonary Hx Respiratory Disorders: No - Neurological Hx Neurological Disorder: Yes Hx Migraine: Yes - HEENT Hx HEENT Disorder: No - Renal Hx Renal Disorder: No - Endocrine/Metabolic Hx Endocrine Disorders: No - Hematological/Oncological Hx Blood Disorders: No - Integumentary Hx Dermatological Disorder: No - Musculoskeletal/Rheumatological Hx Musculoskeletal Disorders: No - Gastrointestinal Hx Gastrointestinal Disorders: Yes (hernia repair) - Genitourinary/Gynecological Hx Genitourinary Disorders: Yes Hx Urinary Tract Infection: Yes - Psychiatric Hx Psychophysiologic Disorder: No Hx Substance Use: No - Surgical History Other/Comment: umbilicus herinal repair - Anesthesia Hx Anesthesia: Yes Hx Anesthesia Reactions: No Hx Malignant Hyperthermia: No Family/Social History - Physician Review Nursing Documentation Reviewed: Yes Family/Social History: Unknown Family HX Smoking Status: Never Smoked Hx Alcohol Use: No Hx Substance Use: No Allergies/Home Meds Allergies/Adverse Reactions: Allergies ciprofloxacin [From Cipro] Allergy (Verified 04/13/18 16:34) SWELLING metoclopramide [From Reglan] Allergy (Verified 04/13/18 16:34) SWELLING Review of Systems - Review of Systems Constitutional: absent: Fatigue, Fevers Respiratory: absent: SOB, Cough Cardiovascular: absent: Chest Pain, Palpitations Gastrointestinal: absent: Abdominal Pain, Nausea, Vomiting Musculoskeletal: Arthralgias. absent: Back Pain, Neck Pain Skin: absent: Rash, Pruritis Neurological: absent: Headache, Dizziness Psychiatric: absent: Anxiety, Depression, Suicidal Ideation Physical Exam Vital Signs Reviewed: Yes Vital Signs Temp Pulse Resp BP Pulse Ox 04/13/18 16:34 98.7 F 76 18 110/73 99 Temperature: Afebrile Blood Pressure: Normal Pulse: Regular Respiratory Rate: Normal Appearance: Positive for: Well-Appearing, Non-Toxic, Comfortable Pain Distress: None Mental Status: Positive for: Alert and Oriented X 3 - Systems Exam Head: Present: Atraumatic Mouth: Present: Moist Mucous Membranes Respiratory/Chest: Present: Clear to Auscultation Cardiovascular: Present: Regular Rate and Rhythm Back: Present: Normal Inspection Upper Extremity: Present: Normal Inspection Lower Extremity: Present: Normal Inspection, NORMAL PULSES, Normal ROM, Neurovascularly Intact, Capillary Refill < 2 s. No: CALF TENDERNESS, Tenderness (no tenderness bilaterally. no edema, no erythema, no ecchymosis. ), Swelling, Erythema, Deformity, Temperature Abnormalties Neurological: Present: GCS=15, Speech Normal Skin: Present: Warm, Dry, Normal Color. No: Rashes Psychiatric: Present: Alert, Oriented x 3 Medical Decision Making ED Course and Treatment: 04/13/18 18:47 Patient is nontoxic well-appearing in no distress with stable vital signs with a four-day history of bilateral calf pain. CBC within normal limits CMP within normal limits Magnesium within normal limits Venous duplex of the bilateral lower extremities reveals no DVT Motrin given for pain. Patient was advised to follow-up with the primary care physician within the next 2 days and follow-up with the orthopedist. Advised increasing fluids and return immediately if symptoms worsen persist or if new concerning symptoms develop Patient verbalizes understanding of discharge instructions and need for immediate followup. all aspects of this case were discussed the attending of record. impression; leg pain Motrin every 6 hours as needed for pain Follow-up with the primary care physician within the next 2 days Increase fluids Return immediately if symptoms worsen persist or if new concerning symptoms develop - Lab Interpretations Lab Results: Total Bilirubin 1.2 mg/dL (0.2-1.3) 04/13/18 18:03 AST 20 U/L (14-36) 04/13/18 18:03 ALT 29 U/L (7-56) 04/13/18 18:03 Alkaline Phosphatase 58 U/L (38-126) 04/13/18 18:03 Total Protein 6.9 g/dL (5.8-8.3) 04/13/18 18:03 Albumin 4.1 g/dL (3.0-4.8) 04/13/18 18:03 Globulin 2.8 gm/dL 04/13/18 18:03 Albumin/Globulin Ratio 1.5 (1.1-1.8) 04/13/18 18:03 - RAD Interpretation Radiology Orders: 04/13/18 17:14 DUPLEX LOWER EXTRM VEIN BILAT [US] Stat Disposition/Present on Arrival - Present on Arrival Any Indicators Present on Arrival: No History of DVT/PE: No History of Uncontrolled Diabetes: No Urinary Catheter: No History of Decub. Ulcer: No History Surgical Site Infection Following: None - Disposition Have Diagnosis and Disposition been Completed?: Yes Diagnosis: Leg pain Disposition: HOME/ ROUTINE Disposition Time: 18:20 Patient Plan: Discharge Patient Problems: Current Active Problems Problem Status Onset Leg pain Acute Condition: GOOD Discharge Instructions (ExitCare): Muscle and Bone Pain (DC) Additional Instructions: Motrin every 6 hours as needed for pain Follow-up with the primary care physician within the next 2 days Increase fluids Return immediately if symptoms worsen persist or if new concerning symptoms develop Prescriptions: Ibuprofen [Motrin] 600 mg PO Q6H PRN #20 tab PRN Reason: pain/fever reduction Referrals: Bertha Plunkett MD [Medical Doctor] - Follow up with primary Bay Otto MD [Staff Provider] - Follow up with primary Izzy Lal DPM [Staff Provider] - Follow up with primary [facility] [Outside] - Follow up with primary [facility] [Outside] - Follow up with primary Forms: [employer] ([place]), WORK NOTE
[2018-04-13 19:34] VITALS: BP 112/73; PULSE 74; TEMP 98.6; O2SAT 100
== END 2018-04-13 19:41 | disposition home or self-care (01) ==
LOC: ED 15:16
DX: M79.604 Pain in right leg (principal); M79.605 Pain in left leg

== ENCOUNTER 2018-04-18 13:01 | Inpatient (IN) | payer MEDICAID ==
[2018-04-18 13:02] VITALS: BMI 20.6
--- NOTE | 2018-04-18 13:16 | ED PDOC ---
Arrival/HPI <Zainab Washington - Last Filed: 04/18/18 16:57> - History of Present Illness Narrative History of Present Illness (Text): 04/18/18 14:07 36 y/o F with PMHx of migraines presents to ED with complaints of "feeling of heat" upon her head with associated chest palpitations and shortness of breath about 20 minutes prior to arrival. Pt reports upon arrival to ED, her symptoms have began to resolve. She reports she also had nausea which is resolving. Pt reports she had similar episodes like this previously for which she visited multiple orange grower for, however this episode was worse than usual. She was on holter monitor for a prolonged period, without any findings and was not prescribed any medications. She had recently visited her PMD who ordered urine studies for her (doesn't remember name). She denies any history of anxiety, drug, alcohol, caffeine, medication use. She denies any history of anxiety or visit to psychiatrist. She denies fevers, chills, headache, weight gain, weight loss, dizziness, chest pain, vomiting, diarrhea, dysuria. PMHx: migraines All: ciprofloxacin, metoclopramide PSH: umbilical hernia repair (2016), (08/2014) SH: Denies ever smoking, drinking. No illicit drug use. No recent travel/long flight/prolonged sitting Hosp: Most recent: 04/13/17 b/l leg pain Meds: Denies. No previous hormonal treatment. Had Copper IUD 8 years ago. PMD: Tonia Plunkett Cardio: Dr. Derrek Archuleta. [employer] Servicer: Dr. Eugene Time/Duration: Prior to Arrival Symptom Onset: Sudden Symptom Course: Unchanged Severity Level: Moderate <Deirdre Benavides - Last Filed: 04/20/18 13:24> - General Time Seen by Provider: 04/18/18 13:06 Past Medical History - Provider Review Nursing Documentation Reviewed: Yes - Infectious Disease Hx of Infectious Diseases: None - Tetanus Immunization Tetanus Immunization: Unknown - Cardiac Hx Cardiac Disorders: Yes (tachycardia) - Pulmonary Hx Respiratory Disorders: No - Neurological Hx Neurological Disorder: Yes Hx Migraine: Yes - HEENT Hx HEENT Disorder: No - Renal Hx Renal Disorder: No - Endocrine/Metabolic Hx Endocrine Disorders: No - Hematological/Oncological Hx Blood Disorders: No - Integumentary Hx Dermatological Disorder: No - Musculoskeletal/Rheumatological Hx Musculoskeletal Disorders: No - Gastrointestinal Hx Gastrointestinal Disorders: Yes (hernia repair) - Genitourinary/Gynecological Hx Genitourinary Disorders: Yes Hx Urinary Tract Infection: Yes - Psychiatric Hx Psychophysiologic Disorder: No Hx Substance Use: No - Surgical History Other/Comment: umbilicus herinal repair - Anesthesia Hx Anesthesia: Yes Hx Anesthesia Reactions: No Hx Malignant Hyperthermia: No <Deirdre Benavides - Last Filed: 04/20/18 13:24> Family/Social History - Physician Review Nursing Documentation Reviewed: Yes Family/Social History: Unknown Family HX Smoking Status: Never Smoked Hx Alcohol Use: No Hx Substance Use: No <Deirdre Benavides - Last Filed: 04/20/18 13:24> Allergies/Home Meds <Zainab Washington - Last Filed: 04/18/18 16:57> <Deirdre Benavides - Last Filed: 04/20/18 13:24> Allergies/Adverse Reactions: Allergies ciprofloxacin [From Cipro] Allergy (Verified 04/13/18 16:34) SWELLING metoclopramide [From Reglan] Allergy (Verified 04/13/18 16:34) SWELLING Home Medications: Home Meds Medication Instructions Recorded Confirmed No Known Home Med 04/18/18 04/18/18 Review of Systems - Review of Systems Constitutional: Normal Eyes: Normal ENT: Normal Respiratory: SOB. absent: Wheezing Cardiovascular: Palpitations Gastrointestinal: Normal Genitourinary Female: Normal Musculoskeletal: Normal Skin: Normal Neurological: Normal Endocrine: Normal Hemo/Lymphatic: Normal Psychiatric: Normal <Deirdre Benavides - Last Filed: 04/20/18 13:24> Physical Exam Vital Signs Temp Pulse Resp BP Pulse Ox 04/18/18 13:16 98.6 F 108 H 18 122/74 99 <Zainab Washington - Last Filed: 04/18/18 16:57> Vital Signs Reviewed: Yes Temperature: Afebrile Blood Pressure: Normal Pulse: Regular Respiratory Rate: Normal Appearance: Positive for: Well-Appearing, Non-Toxic, Comfortable Pain Distress: None Mental Status: Positive for: Alert and Oriented X 3 - Systems Exam Head: Present: Atraumatic, Normocephalic Pupils: Present: PERRL Extroacular Muscles: Present: EOMI Conjunctiva: Present: Normal Mouth: Present: Moist Mucous Membranes Neck: Present: Normal Range of Motion Respiratory/Chest: Present: Clear to Auscultation, Good Air Exchange. No: Respiratory Distress, Accessory Muscle Use Cardiovascular: Present: Regular Rate and Rhythm, Normal S1, S2. No: Murmurs Abdomen: No: Tenderness, Distention, Peritoneal Signs Back: Present: Normal Inspection Upper Extremity: Present: Normal Inspection. No: Cyanosis, Edema Lower Extremity: Present: Normal Inspection. No: Edema Neurological: Present: GCS=15, CN II-XII Intact, Speech Normal Skin: Present: Warm, Dry, Normal Color. No: Rashes Psychiatric: Present: Alert, Oriented x 3, Normal Insight, Normal Concentration <Deirdre Benavides - Last Filed: 04/20/18 13:24> Medical Decision Making ED Course and Treatment: 04/18/18 14:23 Impression: 37 year old female presents to emergency department with complaints of "feeling of heat" upon her head with associated chest palpitations and shortness of breath about 20 minutes prior to arrival. In agreement with resident note which contains more details about the patient. Patient seen and evaluated with resident. Came up with plan and treatment together. Plan: -- EKG -- Labs -- Chest X-ray -- IV Fluids -- Urinalysis 04/18/18 16:57 Chest X-ray, reviewed by radiologist: IMPRESSION: No active disease. - Lab Interpretations Lab Results: Urine Color Yellow (YELLOW) 04/18/18 13:30 Urine Appearance Slight-cloudy (CLEAR) 04/18/18 13:30 Urine pH 6.0 (4.7-8.0) 04/18/18 13:30 Ur Specific [place] 1.010 (1.005-1.035) 04/18/18 13:30 Urine Protein Negative mg/dL (<30 mg/dL) 04/18/18 13:30 Urine Glucose (UA) Negative mg/dL (NEGATIVE) 04/18/18 13:30 Urine Ketones Negative mg/dL (NEGATIVE) 04/18/18 13:30 Urine Blood Negative (NEGATIVE) 04/18/18 13:30 Urine Nitrate Negative (NEGATIVE) 04/18/18 13:30 Urine Bilirubin Negative (NEGATIVE) 04/18/18 13:30 Urine Urobilinogen 0.2 E.U./dL (<1 E.U./dL) 04/18/18 13:30 Ur Leukocyte Esterase Moderate Ashley/uL (NEGATIVE) H 04/18/18 13:30 - RAD Interpretation Radiology Orders: 04/18/18 13:59 CHEST TWO VIEWS (PA/LAT) [RAD] Stat - Medication Orders Current Medication Orders: Sodium Chloride (Sodium Chloride 0.9%) 1,000 mls @ 999 mls/hr IV .Q1H1M STA Stop: 04/18/18 15:00 <Zainab Washington - Last Filed: 04/18/18 16:57> ED Course and Treatment: Impression: 37 y/o F with PMHx of migraine presents to ED with complaints of sudden feeling of heat along head, palpitations, shortness of breath Prior notes and results have been reviewed Differential diagnosis includes but is not limited to: Chest palpitation Plan: Labs EKG Chest xray 1L NS Bolus Reassess & disposition Progress Notes: 04/18/18 17:59 Case discussed with hospitalist, Dr. Cody. Will accept to her service. - EKG Interpretation EKG Interpretation (Text): 04/18/18 13:16 NSR with sinus arrhythmia HR: 87 bpm QTc: 409ms <Deirdre Benavides - Last Filed: 04/20/18 13:24> - PA / TOURIST CABIN KEEPER / Resident Statement SUKHWINDER has reviewed & agrees with the documentation as recorded. SUKHWINDER has examined the patient and agrees with the treatment plan. - Scribe Statement The provider has reviewed the documentation as recorded by the Scribe Ruiz Merritt All medical record entries made by the Scribe were at my direction and personally dictated by me. I have reviewed the chart and agree that the record accurately reflects my personal performance of the history, physical exam, medical decision making, and the department course for this patient. I have also personally directed, reviewed, and agree with the discharge instructions and disposition. <Zainab Washington - Last Filed: 04/18/18 16:57> - PA / TOURIST CABIN KEEPER / Resident Statement SUKHWINDER has reviewed & agrees with the documentation as recorded. SUKHWINDER has examined the patient and agrees with the treatment plan. <Deirdre Benavides - Last Filed: 04/20/18 13:24> Disposition/Present on Arrival <Zainab Washington - Last Filed: 04/18/18 16:57> - Present on Arrival Any Indicators Present on Arrival: No History of DVT/PE: No History of Uncontrolled Diabetes: No Urinary Catheter: No History Surgical Site Infection Following: None - Disposition Have Diagnosis and Disposition been Completed?: Yes Disposition Time: 13:30 <Deirdre Benavides - Last Filed: 04/20/18 13:24> - Disposition Diagnosis: Pulmonary embolism Disposition: HOSPITALIZED Patient Problems: Current Active Problems Problem Status Onset Pulmonary embolus Acute Condition: FAIR
[2018-04-18] MEDS ORDERED: Sodium Chloride 0.9% 1,000 ML IV STA (14:00)
[2018-04-18 14:10] LABS: URINE BILIRUBIN NEGATIVE (NEGATIVE); URINE BLOOD NEGATIVE (NEGATIVE); URINE GLUCOSE (UA) NEGATIVE (NEGATIVE); URINE LEUKOCYTE ESTERASE MODERATE Leu/uL (NEGATIVE); URINE PROTEIN NEGATIVE mg/dL (<30 mg/dL); URINE UROBILINOGEN 0.2 E.U./dL (<1 E.U./dL)
[2018-04-18 14:17] LABS: URINE APPEARANCE SLIGHT-CLOUDY (CLEAR); URINE COLOR YELLOW (YELLOW)
[2018-04-18 14:19] LABS: BASO # 0.02 K/mm3 (0.0-2.0); BASO % 0.3 % (0.0-3.0); EOS # 0.1 (0.0-0.7); EOS % 1.9 % (1.5-5.0); GRAN # 3.37 (1.4-6.5); HEMOGLOBIN 12.6 g/dL (12.0-16.0); LYMPH % 33.7 % (22.0-35.0); MEAN CELL VOLUME 92.6 fl (80.0-105.0); MEAN CORPUSCULAR HGB CONC 33.4 g/dl (31.0-37.0); MEAN PLATELET VOLUME 10.4 fl (7.0-11.0); MONO # 0.4 (0.1-0.6); MONO % 7.1 % (1.0-6.0); RBC 4.07 10^6/uL (3.5-6.1); RED CELL DISTRIBUTION WIDTH 12.1 % (11.5-14.5); WHITE BLOOD COUNT 5.9 10^3/uL (4.5-11.0)
[2018-04-18 14:24] LABS: URINE BACTERIA MOD /hpf; URINE RBC 0 - 2 /hpf (0-2); URINE WBC 15 - 20 /hpf (0-6)
[2018-04-18 14:30] LABS: ALB/GLOB RATIO 1.4 (1.1-1.8); ALBUMIN 4.2 g/dL (3.0-4.8); ALT/SGPT 29 U/L (7-56); AST/SGOT 23 U/L (14-36); BLOOD UREA NITROGEN 9 mg/dL (7-21); GFR NON-AFRICAN AMERICAN > 60
[2018-04-18 14:41] LABS: TROPONIN I < 0.01 ng/mL
--- NOTE | 2018-04-18 16:07 | RAD ---
Date of service: 04/18/2018 HISTORY: Chest pain. Shortness of breath COMPARISON: No prior. TECHNIQUE: Chest PA and lateral FINDINGS: LUNGS: No active pulmonary disease. PLEURA: No significant pleural effusion identified. No pneumothorax apparent. CARDIOVASCULAR: No aortic atherosclerotic calcification present. Normal cardiac size. No pulmonary vascular congestion. OSSEOUS STRUCTURES: No significant abnormalities. VISUALIZED UPPER ABDOMEN: Normal. OTHER FINDINGS: None. IMPRESSION: No active disease.
[2018-04-18] MEDS ORDERED: Iohexol 350 MG/100 ML VIAL ONE (16:19)
[2018-04-18 16:35] LABS: BARBITURATES, UR NEGATIVE (NEGATIVE); BENZODIAZEPINES, UR NEGATIVE (NEGATIVE); OPIATES, UR NEGATIVE (NEGATIVE); PHENCYCLIDINE, UR NEGATIVE (NEGATIVE)
--- NOTE | 2018-04-18 17:37 | CT ---
Date of service: 04/18/2018 PROCEDURE: CT Chest with contrast (Pulmonary Angiogram) HISTORY: Shortness of breath. COMPARISON: 12/10/2017. CT pulmonary angiogram. 12/11/2017 ventilation perfusion scan. TECHNIQUE: Axial computed tomography images were obtained of the chest in the pulmonary arterial phase of enhancement. Coronal and sagittal reformatted images were created and reviewed. Intravenous contrast dose: 100 cc Omnipaque 350 Mean Hounsfield value in the main pulmonary artery: 295.54 Radiation dose: Total exam DLP = 163.50 mGy-cm. This CT exam was performed using one or more of the following dose reduction techniques: Automated exposure control, adjustment of the mA and/or kV according to patient size, and/or use of iterative reconstruction technique. FINDINGS: PULMONARY ARTERIES: Is proximal pulmonary emboli or right upper lobe. Please refer to series 2 axial images 70 7-90. The finding is confirmed on sagittal series 602/image 70. No evidence of right heart failure, pulmonary infarction or other pathologic process. AORTA: No acute findings. No thoracic aortic aneurysm. No atherosclerotic calcification or mural plaque present. LUNGS: Unremarkable. No nodule, mass or pulmonary consolidation. PLEURAL SPACES: Unremarkable. No effusion or pneumothorax. HEART: Unremarkable. No cardiomegaly. No significant pericardial effusion. LYMPH NODES: No lymphadenopathy. BONES, CHEST WALL: Unremarkable. No fracture or destructive lesion OTHER FINDINGS: Unremarkable. IMPRESSION: Pulmonary embolism limited to segmental branches of the right upper lobe. Communication of results: I discussed findings directly with the attending physician in the emergency department at 17:29.
[2018-04-18] MEDS: Enoxaparin 60 mg Syringe SC SCH (18:37)
--- NOTE | 2018-04-18 18:46 | CP.PCM.HP ---
<Nitish Zhang - Last Filed: 04/18/18 19:32> History of Present Illness - History of Present Illness History of Present Illness: Nitish Zhang, PGY1 Hospital H&P This is a 36 year old female with PMH of migraines and recurrent UTI's presenting to the hospital for SOB and chest palpitations that began shortly prior to arrival. Patient states she has had similar symptoms for one year described as intermittent, non exertional and says chest palpitations are associated with nausea, vomiting and SOB. She states symptoms tend to be worse at night and denies any alleviating or exacerbating factors. She has been following a forming tube selector for her symptoms and has had a negative cardiac workup including holter monitor. She has multiple ED visits for similar symptoms with the last visit being 2 days ago for bilateral calf pain and was discharged after lower extremity dopplers were unremarkable. Her last hospital admission was on 12/10/2017 for similar symptoms and CTA at that time was indeterminate due to timing of dye and subsequent VQ scan showed low probability for PE. Today, symptoms are worse than usual, occurred while at rest and associated with SOB and nausea. She denies CP, fevers, headaches, vomiting, back pain, abdominal pain, diarrhea, constipation, urinary complaints, numbness, tingling, swelling, recent travel, sickness, trauma and lifestyle changes including diet and weight. She denies any family history of lupus and denies any abortions or miscarriages. 12 point ROS noted here, otherwise unremarkable. PMD: Tonia Plunkett Salesperson [employer]: Dr. Derrek Archuleta Clerical Office Worker: Dr. Eugene PMHx: migraines, recurrent UTI All: ciprofloxacin, metoclopramide SH: umbilical hernia repair (2016), (08/2014) Sx: Denies ever smoking, drinking. No illicit drug use. No recent travel/long flight/prolonged sitting Hosp: Most recent: 04/13/17 b/l leg pain Meds: Denies. No previous hormonal treatment. Had Copper IUD 8 years ago. Present on Admission - Present on Admission Any Indicators Present on Admission: No Past Patient History - Infectious Disease Hx of Infectious Diseases: None - Tetanus Immunizations Tetanus Immunization: Unknown - Past Social History Smoking Status: Never Smoked - CARDIAC Hx Cardiac Disorders: Yes (tachycardia) - PULMONARY Hx Respiratory Disorders: No - NEUROLOGICAL Hx Neurological Disorder: Yes Hx Migraine: Yes - HEENT Hx HEENT Problems: No - RENAL Hx Chronic Kidney Disease: No - ENDOCRINE/METABOLIC Hx Endocrine Disorders: No - HEMATOLOGICAL/ONCOLOGICAL Hx Blood Disorders: No - INTEGUMENTARY Hx Dermatological Problems: No - MUSCULOSKELETAL/RHEUMATOLOGICAL Hx Musculoskeletal Disorders: No - GASTROINTESTINAL Hx Gastrointestinal Disorders: Yes (hernia repair) - GENITOURINARY/GYNECOLOGICAL Hx Genitourinary Disorders: Yes Hx Urinary Tract Infection: Yes - PSYCHIATRIC Hx Psychophysiologic Disorder: No Hx Substance Use: No - SURGICAL HISTORY Other/Comment: umbilicus herinal repair - ANESTHESIA Hx Anesthesia: Yes Hx Anesthesia Reactions: No Hx Malignant Hyperthermia: No Meds Allergies/Adverse Reactions: Allergies Allergy/AdvReac Type Severity Reaction Status Date / Time ciprofloxacin [From Cipro] Allergy SWELLING Verified 04/13/18 16:34 metoclopramide [From Reglan] Allergy SWELLING Verified 04/13/18 16:34 Physical Exam - Constitutional Appears: No Acute Distress - Head Exam Head Exam: ATRAUMATIC, NORMAL INSPECTION - Eye Exam Eye Exam: EOMI Pupil Exam: PERRL - ENT Exam ENT Exam: Mucous Membranes Moist - Neck Exam Neck exam: Positive for: Normal Inspection - Respiratory Exam Respiratory Exam: Clear to Auscultation Bilateral. absent: Accessory Muscle Use, Wheezes, Respiratory Distress - Cardiovascular Exam Cardiovascular Exam: REGULAR RHYTHM, +S1, +S2. absent: Tachycardia - GI/Abdominal Exam GI & Abdominal Exam: Soft. absent: Distended, Firm, Guarding, Tenderness - Extremities Exam Extremities exam: Positive for: pedal pulses present. Negative for: calf tenderness, pedal edema, tenderness - Back Exam Back exam: NORMAL INSPECTION - Neurological Exam Neurological exam: Alert, CN II-XII Intact, Oriented x3 - Skin Skin Exam: Normal Color, Warm Results - Vital Signs Recent Vital Signs: Last Vital Signs Temp 98.6 F 04/18/18 13:16 Pulse 88 04/18/18 16:07 Resp 18 04/18/18 16:07 BP 122/74 04/18/18 13:16 Pulse Ox 100 04/18/18 16:07 - Labs Result Diagrams: 04/18/18 13:30 04/18/18 13:30 Labs: Laboratory Results - last 24 hr 04/18/18 04/18/18 04/18/18 13:30 13:30 13:30 WBC 5.9 RBC 4.07 Hgb 12.6 Hct 37.7 MCV 92.6 MCH 31.0 MCHC 33.4 RDW 12.1 Plt Count 210 MPV 10.4 Gran % 57.0 Lymph % (Auto) 33.7 Gulf % (Auto) 7.1 H Eos % (Auto) 1.9 Baso % (Auto) 0.3 Gran # 3.37 Lymph # (Auto) 2.0 Gulf # (Auto) 0.4 Eos # (Auto) 0.1 Baso # (Auto) 0.02 D-Dimer, Quantitative 398 H Sodium Potassium Chloride Carbon Dioxide Anion Gap BUN Creatinine Est GFR ( Amer) Est GFR (Non-Af Amer) Random Glucose Calcium Magnesium Total Bilirubin AST ALT Alkaline Phosphatase Lactate Dehydrogenase Total Creatine Kinase Troponin I Total Protein Albumin Globulin Albumin/Globulin Ratio TSH 3rd Generation Urine Color Yellow Urine Appearance Slight-cloudy Urine pH 6.0 Ur Specific [place] 1.010 Urine Protein Negative Urine Glucose (UA) Negative Urine Ketones Negative Urine Blood Negative Urine Nitrate Negative Urine Bilirubin Negative Urine Urobilinogen 0.2 Ur Leukocyte Esterase Moderate H Urine RBC 0 - 2 Urine WBC 15 - 20 H Ur Epithelial Cells 6 - 8 H Urine Bacteria Mod Urine Opiates Screen Urine Methadone Screen Ur Barbiturates Screen Ur Phencyclidine Scrn Ur Amphetamines Screen U Benzodiazepines Scrn U Oth Cocaine Metabols U Cannabinoids Screen 04/18/18 04/18/18 04/18/18 13:30 13:30 15:50 WBC RBC Hgb Hct MCV MCH MCHC RDW Plt Count MPV Gran % Lymph % (Auto) [place] % (Auto) Eos % (Auto) Baso % (Auto) Gran # Lymph # (Auto) [place] # (Auto) Eos # (Auto) Baso # (Auto) D-Dimer, Quantitative Sodium 136 Potassium 3.9 Chloride 102 Carbon Dioxide 26 Anion Gap 12 BUN 9 Creatinine 0.6 L Est GFR ( Amer) > 60 Est GFR (Non-Af Amer) > 60 Random Glucose 106 Calcium 9.0 Magnesium 1.8 Total Bilirubin 1.8 H AST 23 ALT 29 Alkaline Phosphatase 47 Lactate Dehydrogenase 490 Total Creatine Kinase 54 Troponin I < 0.01 Total Protein 7.2 Albumin 4.2 Globulin 3.0 Albumin/Globulin Ratio 1.4 TSH 3rd Generation 2.17 Urine Color Urine Appearance Urine pH Ur Specific [place] Urine Protein Urine Glucose (UA) Urine Ketones Urine Blood Urine Nitrate Urine Bilirubin Urine Urobilinogen Ur Leukocyte Esterase Urine RBC Urine WBC Ur Epithelial Cells Urine Bacteria Urine Opiates Screen Negative Urine Methadone Screen Negative Ur Barbiturates Screen Negative Ur Phencyclidine Scrn Negative Ur Amphetamines Screen Negative U Benzodiazepines Scrn Negative U Oth Cocaine Metabols Negative U Cannabinoids Screen Negative Assessment & Plan - Assessment and Plan (Free Text) Assessment: This is a 36 year old female with PMH of migraines and recurrent UTI's presenting to the hospital for SOB and chest palpitations that began shortly prior to arrival. Patient states she has had similar symptoms for one year described as intermittent, non exertional and says chest palpitations are associated with nausea, vomiting and SOB. Plan: P.E. -CTA showed pulmonary embolism limited to segmental branches of right upper lobe -CXR is unremarkable -LE doppler pending -echo pending -therapeutic lovenox 60mg BID -coags pending -JUDY, anti cardiolipin, anti phospholipid pending -monitor on tele -oxygen as needed -hematology on consult, Dr. Mckeon -caridology on consult, Dr. Conrad Hx of recurrent UTI -UA positive for moderate leuk esterace, 15-20 WBC, dirty catch -patient is asymptomatic -urine culture pending PPX/Diet -lovenox and pepcid -Regular Diet Patient seen and case discussed with attending, Dr. Cody <Nia Cody - Last Filed: 04/19/18 11:39> Results - Vital Signs Recent Vital Signs: Last Vital Signs Temp 98.7 F 04/19/18 06:00 Pulse 94 H 04/19/18 06:00 Resp 20 04/19/18 06:00 BP 110/63 04/19/18 06:00 Pulse Ox 98 04/19/18 06:00 - Labs Result Diagrams: 04/19/18 06:30 04/19/18 06:30 Labs: Laboratory Results - last 24 hr 04/18/18 04/18/18 04/18/18 13:30 13:30 13:30 WBC 5.9 RBC 4.07 Hgb 12.6 Hct 37.7 MCV 92.6 MCH 31.0 MCHC 33.4 RDW 12.1 Plt Count 210 MPV 10.4 Gran % 57.0 Lymph % (Auto) 33.7 [place] % (Auto) 7.1 H Eos % (Auto) 1.9 Baso % (Auto) 0.3 Gran # 3.37 Lymph # (Auto) 2.0 [place] # (Auto) 0.4 Eos # (Auto) 0.1 Baso # (Auto) 0.02 PT INR APTT D-Dimer, Quantitative 398 H Sodium Potassium Chloride Carbon Dioxide Anion Gap BUN Creatinine Est GFR ( Amer) Est GFR (Non-Af Amer) Random Glucose Calcium Phosphorus Magnesium Total Bilirubin AST ALT Alkaline Phosphatase Lactate Dehydrogenase Total Creatine Kinase Troponin I Total Protein Albumin Globulin Albumin/Globulin Ratio TSH 3rd Generation Urine Color Yellow Urine Appearance Slight-cloudy Urine pH 6.0 Ur Specific [place] 1.010 Urine Protein Negative Urine Glucose (UA) Negative Urine Ketones Negative Urine Blood Negative Urine Nitrate Negative Urine Bilirubin Negative Urine Urobilinogen 0.2 Ur Leukocyte Esterase Moderate H Urine RBC 0 - 2 Urine WBC 15 - 20 H Ur Epithelial Cells 6 - 8 H Urine Bacteria Mod Urine Opiates Screen Urine Methadone Screen Ur Barbiturates Screen Ur Phencyclidine Scrn Ur Amphetamines Screen U Benzodiazepines Scrn U Oth Cocaine Metabols U Cannabinoids Screen 04/18/18 04/18/18 04/18/18 13:30 13:30 15:50 WBC RBC Hgb Hct MCV MCH MCHC RDW Plt Count MPV Gran % Lymph % (Auto) [place] % (Auto) Eos % (Auto) Baso % (Auto) Gran # Lymph # (Auto) [place] # (Auto) Eos # (Auto) Baso # (Auto) PT INR APTT D-Dimer, Quantitative Sodium 136 Potassium 3.9 Chloride 102 Carbon Dioxide 26 Anion Gap 12 BUN 9 Creatinine 0.6 L Est GFR ( Amer) > 60 Est GFR (Non-Af Amer) > 60 Random Glucose 106 Calcium 9.0 Phosphorus Magnesium 1.8 Total Bilirubin 1.8 H AST 23 ALT 29 Alkaline Phosphatase 47 Lactate Dehydrogenase 490 Total Creatine Kinase 54 Troponin I < 0.01 Total Protein 7.2 Albumin 4.2 Globulin 3.0 Albumin/Globulin Ratio 1.4 TSH 3rd Generation 2.17 Urine Color Urine Appearance Urine pH Ur Specific [place] Urine Protein Urine Glucose (UA) Urine Ketones Urine Blood Urine Nitrate Urine Bilirubin Urine Urobilinogen Ur Leukocyte Esterase Urine RBC Urine WBC Ur Epithelial Cells Urine Bacteria Urine Opiates Screen Negative Urine Methadone Screen Negative Ur Barbiturates Screen Negative Ur Phencyclidine Scrn Negative Ur Amphetamines Screen Negative U Benzodiazepines Scrn Negative U Oth Cocaine Metabols Negative U Cannabinoids Screen Negative 04/19/18 04/19/18 04/19/18 06:30 06:30 06:30 WBC 4.6 D RBC 3.90 Hgb 11.9 L Hct 36.3 MCV 93.1 MCH 30.5 MCHC 32.8 RDW 12.2 Plt Count 194 MPV 10.2 Gran % 49.9 L Lymph % (Auto) 38.2 H [place] % (Auto) 8.6 H Eos % (Auto) 2.9 Baso % (Auto) 0.4 Gran # 2.28 Lymph # (Auto) 1.7 [place] # (Auto) 0.4 Eos # (Auto) 0.1 Baso # (Auto) 0.02 PT 13.5 H INR 1.17 APTT 47.8 H D-Dimer, Quantitative Sodium 139 Potassium 4.0 Chloride 107 Carbon Dioxide 29 Anion Gap 7 L BUN 6 L Creatinine 0.6 L Est GFR ( Amer) > 60 Est GFR (Non-Af Amer) > 60 Random Glucose 110 Calcium 8.8 Phosphorus 3.7 Magnesium 1.9 Total Bilirubin 1.7 H AST 17 ALT 29 Alkaline Phosphatase 47 Lactate Dehydrogenase Total Creatine Kinase Troponin I Total Protein 6.2 Albumin 3.5 Globulin 2.7 Albumin/Globulin Ratio 1.3 TSH 3rd Generation Urine Color Urine Appearance Urine pH Ur Specific [place] Urine Protein Urine Glucose (UA) Urine Ketones Urine Blood Urine Nitrate Urine Bilirubin Urine Urobilinogen Ur Leukocyte Esterase Urine RBC Urine WBC Ur Epithelial Cells Urine Bacteria Urine Opiates Screen Urine Methadone Screen Ur Barbiturates Screen Ur Phencyclidine Scrn Ur Amphetamines Screen U Benzodiazepines Scrn U Oth Cocaine Metabols U Cannabinoids Screen Attending/Attestation - Attestation I have personally seen and examined this patient.: Yes I have fully participated in the care of the patient.: Yes I have reviewed all pertinent clinical information: Yes Notes (Text): 04/19/18 11:36 Attending note; Patient seen and examined with resident in ER. Patient is alert and awake. Complaining of exertional dyspnea and palpitations. Currently denies any chest pain. Denies any fevers, chills. Denies any nausea, vomiting. Denies any cough or sputum production. Denies any urinary, bowel symptoms. Patient is a 36 year old female with PMH of migraines, palpitations, and recurrent UTI's presenting to the hospital for SOB and chest palpitations that began shortly prior to arrival. CT chest showed subsegmental pulmonary embolus. 1. Pulmonary embolism; currently on treatment dose of Lovenox. Monitor pulse ox closely. Continue oxygen. 2. Exertional dyspnea/palpitations; monitor in telemetry closely. Patient with a previous history of palpitations in the past. Cardiology evaluation requested. Echocardiogram ordered. 3. No previous history of DVT or pulmonary embolus. No family history of coagulation disorder. No previous use of oral contrast after pills. No previous history of miscarriages or abortions. Patient will be started on by mouth anticoagulation upon discharge. Hematology evaluation requested. Patient needs close hematology follow-up as outpatient. The diagnosis, follow-up plan discussed with patient in detail. Patient will follow up with PMD Dr. Plunkett and cardiology Dr. Archuleta upon discharge. Patient also follows up with backrest assembler as outpatient.
[2018-04-18] MEDS ORDERED: Pneumococcal 23-Valent Vaccine IM ONE (21:59)
[2018-04-18] MEDS ORDERED: Influenza Vaccine 60 mcg/0.5 mL SYR (4YR UP) IM ONE (21:59)
[2018-04-19] MEDS: Enoxaparin 60 mg Syringe SC SCH ×2 (06:14→17:38)
[2018-04-19 07:12] LABS: BASO # 0.02 K/mm3 (0.0-2.0); BASO % 0.4 % (0.0-3.0); EOS # 0.1 (0.0-0.7); EOS % 2.9 % (1.5-5.0); GRAN # 2.28 (1.4-6.5); GRAN % 49.9 % (50.0-68.0); HEMOGLOBIN 11.9 g/dL (12.0-16.0); LYMPH # 1.7 (1.2-3.4); LYMPH % 38.2 % (22.0-35.0); MEAN CELL VOLUME 93.1 fl (80.0-105.0); MEAN CORPUSCULAR HEMOGLOBIN 30.5 pg (25.0-35.0); MEAN CORPUSCULAR HGB CONC 32.8 g/dl (31.0-37.0); MEAN PLATELET VOLUME 10.2 fl (7.0-11.0); MONO # 0.4 (0.1-0.6); MONO % 8.6 % (1.0-6.0); RBC 3.9 10^6/uL (3.5-6.1); RED CELL DISTRIBUTION WIDTH 12.2 % (11.5-14.5); WHITE BLOOD COUNT 4.6 10^3/uL (4.5-11.0)
[2018-04-19 07:14] LABS: INR 1.17; PARTIAL THROMBOPLASTIN TIME 47.8 Seconds (25.1-36.5); PROTHROMBIN TIME 13.5 SECONDS (9.4-12.5)
[2018-04-19 07:58] LABS: ALB/GLOB RATIO 1.3 (1.1-1.8); ALBUMIN 3.5 g/dL (3.0-4.8); ALT/SGPT 29 U/L (7-56); AST/SGOT 17 U/L (14-36); BLOOD UREA NITROGEN 6 mg/dL (7-21); CALCIUM 8.8 mg/dL (8.4-10.5); GFR NON-AFRICAN AMERICAN > 60
--- NOTE | 2018-04-19 11:19 | CP.PCM.PN ---
<Naren Coon - Last Filed: 04/19/18 11:16> Subjective - Date & Time of Evaluation Date of Evaluation: 04/19/18 Time of Evaluation: 11:16 - Subjective Subjective: Internal Medicine Progress Note (Hospitalist's Service) Patient seen and assessed at bedside. No acute events overnight noted. Patient denies any SOB or palpitations overnight. Patient is currently resting comfortably without complaints and further 12 point ROS unremarkable at this time. Objective - Vital Signs/Intake and Output Vital Signs (last 24 hours): Temp Pulse Resp BP Pulse Ox 98.7 F 94 H 20 110/63 98 04/19/18 06:00 04/19/18 06:00 04/19/18 06:00 04/19/18 06:00 04/19/18 06:00 Intake and Output: 04/19/18 04/19/18 06:59 18:59 Intake Total 360 Balance 360 - Medications Medications: Current Medications Enoxaparin Sodium (Lovenox) 60 mg SC Q12H ADALGISA; Protocol Last Admin: 04/19/18 06:14 Dose: 60 mg Famotidine (Pepcid) 20 mg IVP DAILY ADALGISA - Labs Labs: 04/19/18 06:30 04/19/18 06:30 PT 13.5 SECONDS (9.4-12.5) H 04/19/18 06:30 INR 1.17 04/19/18 06:30 APTT 47.8 Seconds (25.1-36.5) H 04/19/18 06:30 - Constitutional Appears: Non-toxic, No Acute Distress - Head Exam Head Exam: ATRAUMATIC, NORMOCEPHALIC - Eye Exam Eye Exam: EOMI, Normal appearance - ENT Exam ENT Exam: Mucous Membranes Moist - Neck Exam Neck Exam: Full ROM - Respiratory Exam Respiratory Exam: Clear to Ausculation Bilateral, NORMAL BREATHING PATTERN. absent: Accessory Muscle Use, Chest Wall Tenderness, Decreased Breath Sounds, P rolonged Expiratory Phase, Rales, Rhonchi, Wheezes, Respiratory Distress, Stridor - Cardiovascular Exam Cardiovascular Exam: REGULAR RHYTHM, +S1, +S2 - GI/Abdominal Exam GI & Abdominal Exam: Soft, Normal Bowel Sounds. absent: Tenderness - Extremities Exam Extremities Exam: Full ROM, Normal Capillary Refill, Normal Inspection. absent: Calf Tenderness, Joint Swelling, Pedal Edema, Tenderness - Neurological Exam Neurological Exam: Alert, Awake, Oriented x3 - Psychiatric Exam Psychiatric exam: Normal Affect, Normal Mood - Skin Skin Exam: Dry, Intact, Normal Color, Warm Assessment and Plan - Assessment and Plan (Free Text) Assessment: 36 year old female with a past medical history significant for migraines and recurrent UTI's who presented to the hospital for SOB and chest palpitations. She was found to have RUL PE limited to the segmental branches and is currently on therapeutic Lovenox. Plan: 1. Acute RUL Segmental PE -See CT Angiogram report -LE Venous Duplex US preliminarily negative for DVT's; Will await final radiologist interpretation -2D Echocardiogram, JUDY, Anti-Cardiolipin and Anti-Phospholipid antibodies pending -Continue Lovenox 60mg BID (Therapeutic dosing for PE) -Heme/Onc and Cardiology consulted, all recommendations appreciated 2. History of Recurrent UTI -UA positive for moderate LE and 15-20 WBC with likely contamination -Currently asymptomatic -Urine culture pending GI Prophylaxis: Pepcid DVT Prophylaxis: Lovenox Diet: Regular Code Status: Full Code Patient seen and case discussed with attending, Dr. Cody. Naren Coon PGY2 <Nia Cody - Last Filed: 04/19/18 11:43> Objective - Vital Signs/Intake and Output Vital Signs (last 24 hours): Temp Pulse Resp BP Pulse Ox 98.7 F 94 H 20 110/63 98 04/19/18 06:00 04/19/18 06:00 04/19/18 06:00 04/19/18 06:00 04/19/18 06:00 Intake and Output: 04/19/18 04/19/18 06:59 18:59 Intake Total 360 Balance 360 - Medications Medications: Current Medications Enoxaparin Sodium (Lovenox) 60 mg SC Q12H ADALGISA; Protocol Last Admin: 04/19/18 06:14 Dose: 60 mg Famotidine (Pepcid) 40 mg PO HS ADALGISA - Labs Labs: 04/19/18 06:30 04/19/18 06:30 PT 13.5 SECONDS (9.4-12.5) H 04/19/18 06:30 INR 1.17 04/19/18 06:30 APTT 47.8 Seconds (25.1-36.5) H 04/19/18 06:30 Attending/Attestation - Attestation I have personally seen and examined this patient.: Yes I have fully participated in the care of the patient.: Yes I have reviewed all pertinent clinical information, including history, physical exam and plan: Yes Notes (Text): 04/19/18 11:40 Attending note; Patient seen and examined with resident. Patient is alert and awake. Complaining of exertional dyspnea and palpitations. Using oxygen on and off. Denies any cough or sputum production. Denies any urinary, bowel symptoms. Patient is a 36 year old female with PMH of migraines, palpitations, and recurrent UTI's presenting to the hospital for SOB and chest palpitations that began shortly prior to arrival. CT chest showed subsegmental pulmonary embolus. 1. Pulmonary embolism; currently on treatment dose of Lovenox. Monitor pulse ox closely. Continue oxygen. Lower extremity venous Doppler is negative. 2. Exertional dyspnea/palpitations; monitor in telemetry closely. Episodes of tachycardia. Patient with a previous history of palpitations in the past. Previous workup has been negative including Holter monitor, CT angios, venous Doppler and VQ scan Cardiology evaluation appreciated. Echocardiogram ordered. 3. No previous history of DVT or pulmonary embolus. No family history of coagulation disorder. No previous use of oral contrast after pills. No previous history of miscarriages or abortions. Patient will be started on po anticoagulation upon discharge. Hematology evaluation requested. Patient needs close hematology follow-up as outpatient. We will get physical therapy evaluation to check pulse ox on ambulation. Currently saturation is stable with oxygen nasal cannula. The diagnosis, follow-up plan discussed with patient in detail. Patient will follow up with PMD Dr. Plunkett and cardiology Dr. Archuleta upon discharge. Patient also follows up with heel seater as outpatient. 04/19/18 11:42
[2018-04-19 12:04] LABS: PH,URINE 7.5 (4.7-8.0); URINE BILIRUBIN NEGATIVE (NEGATIVE); URINE BLOOD NEGATIVE (NEGATIVE); URINE GLUCOSE (UA) 100 mg/dL (NEGATIVE); URINE LEUKOCYTE ESTERASE SMALL Leu/uL (NEGATIVE); URINE PROTEIN NEGATIVE mg/dL (<30 mg/dL); URINE UROBILINOGEN 0.2 E.U./dL (<1 E.U./dL)
[2018-04-19 12:05] LABS: URINE APPEARANCE CLEAR (CLEAR); URINE COLOR LIGHT YELLOW (YELLOW)
[2018-04-19 12:12] LABS: URINE BACTERIA FEW /hpf; URINE RBC 0 - 2 /hpf (0-2)
[2018-04-19 12:32] LABS: BARBITURATES, UR NEGATIVE (NEGATIVE); BENZODIAZEPINES, UR NEGATIVE (NEGATIVE); OPIATES, UR NEGATIVE (NEGATIVE); PHENCYCLIDINE, UR NEGATIVE (NEGATIVE)
--- NOTE | 2018-04-19 12:54 | CP.PCM.CON ---
History of Present Illness - History of Present Illness History of Present Illness: CONSULT for Dr. Conrad Reason for consultation: Cardiac evaluation for pulmonary embolism Brief history of present illness:A 37 year old female who came in to the ER due to "feeling of heat" upon her head with associated chest palpitations and shortness of breath about 20 minutes prior to arrival with resolution. She had similar symptoms before and had seen a machine bookkeeper. She was placed on Holter monitor with normal results. History of migraines, umbilical hernia repair, C- section,urinary tract infection, tachycardia. Seen and examined by Dr. Vaughn Review of Systems - Review of Systems All systems: reviewed and no additional remarkable complaints except Review of Systems: as per HPI Past Patient History - Infectious Disease Hx of Infectious Diseases: None - Tetanus Immunizations Tetanus Immunization: Unknown - Past Social History Smoking Status: Never Smoked - CARDIAC Hx Cardiac Disorders: Yes (tachycardia) Other/Comment: had episode of sob/palpitations, felt like going to pass out 03/2018 came to [facility] [place] heart rate was 148 - PULMONARY Hx Respiratory Disorders: No - NEUROLOGICAL Hx Neurological Disorder: Yes Hx Migraine: Yes - HEENT Hx HEENT Problems: No - RENAL Hx Chronic Kidney Disease: No - ENDOCRINE/METABOLIC Hx Endocrine Disorders: No - HEMATOLOGICAL/ONCOLOGICAL Hx Blood Disorders: No - INTEGUMENTARY Hx Dermatological Problems: No - MUSCULOSKELETAL/RHEUMATOLOGICAL Hx Falls: No - GASTROINTESTINAL Hx Gastrointestinal Disorders: Yes (umbilical 2015 w/mesh) - GENITOURINARY/GYNECOLOGICAL Hx Genitourinary Disorders: Yes Hx Urinary Tract Infection: Yes Other/Comment: pt just finished macrobid for uti then began to have sob/palp/ta chycardia - PSYCHIATRIC Hx Substance Use: No - SURGICAL HISTORY Hx Surgeries: Yes Other/Comment: umbilicus herinal repair w/mesh 2015, c section 08/2014 - ANESTHESIA Hx Anesthesia: Yes Hx Anesthesia Reactions: No Hx Malignant Hyperthermia: No Meds Allergies/Adverse Reactions: Allergies Allergy/AdvReac Type Severity Reaction Status Date / Time ciprofloxacin [From Cipro] Allergy SWELLING Verified 04/13/18 16:34 metoclopramide [From Reglan] Allergy SWELLING Verified 04/13/18 16:34 - Medications Medications: Current Medications Enoxaparin Sodium (Lovenox) 60 mg SC Q12H [facility]; Protocol Last Admin: 04/19/18 06:14 Dose: 60 mg Famotidine (Pepcid) 40 mg PO HS [facility] Physical Exam - Constitutional Appears: Non-toxic, No Acute Distress - Head Exam Head Exam: NORMAL INSPECTION, NORMOCEPHALIC - Eye Exam Eye Exam: Normal appearance Pupil Exam: NORMAL ACCOMODATION - ENT Exam ENT Exam: Mucous Membranes Moist, Normal Exam - Respiratory Exam Respiratory Exam: Clear to Auscultation Bilateral, NORMAL BREATHING PATTERN - Cardiovascular Exam Cardiovascular Exam: REGULAR RHYTHM, +S1, +S2 - GI/Abdominal Exam GI & Abdominal Exam: Normal Bowel Sounds, Soft - Extremities Exam Extremities exam: Positive for: normal capillary refill, normal inspection - Neurological Exam Neurological exam: Alert, Oriented x3 - Psychiatric Exam Psychiatric exam: Normal Affect, Normal Mood - Skin Skin Exam: Dry, Normal Color, Warm Results - Vital Signs Recent Vital Signs: Last Vital Signs Temp 98.7 F 04/19/18 06:00 Pulse 94 H 04/19/18 06:00 Resp 20 04/19/18 06:00 BP 110/63 04/19/18 06:00 Pulse Ox 98 04/19/18 06:00 - Labs Result Diagrams: 04/19/18 06:30 04/19/18 06:30 Labs: Laboratory Results - last 24 hr 04/18/18 04/18/18 04/18/18 13:30 13:30 13:30 WBC 5.9 RBC 4.07 Hgb 12.6 Hct 37.7 MCV 92.6 MCH 31.0 MCHC 33.4 RDW 12.1 Plt Count 210 MPV 10.4 Gran % 57.0 Lymph % (Auto) 33.7 [place] % (Auto) 7.1 H Eos % (Auto) 1.9 Baso % (Auto) 0.3 Gran # 3.37 Lymph # (Auto) 2.0 [place] # (Auto) 0.4 Eos # (Auto) 0.1 Baso # (Auto) 0.02 PT INR APTT D-Dimer, Quantitative 398 H Sodium Potassium Chloride Carbon Dioxide Anion Gap BUN Creatinine Est GFR ( Amer) Est GFR (Non-Af Amer) Random Glucose Calcium Phosphorus Magnesium Total Bilirubin AST ALT Alkaline Phosphatase Lactate Dehydrogenase Total Creatine Kinase Troponin I Total Protein Albumin Globulin Albumin/Globulin Ratio TSH 3rd Generation Urine Color Yellow Urine Appearance Slight-cloudy Urine pH 6.0 Ur Specific [place] 1.010 Urine Protein Negative Urine Glucose (UA) Negative Urine Ketones Negative Urine Blood Negative Urine Nitrate Negative Urine Bilirubin Negative Urine Urobilinogen 0.2 Ur Leukocyte Esterase Moderate H Urine RBC 0 - 2 Urine WBC 15 - 20 H Ur Epithelial Cells 6 - 8 H Urine Bacteria Mod Urine Opiates Screen Urine Methadone Screen Ur Barbiturates Screen Ur Phencyclidine Scrn Ur Amphetamines Screen U Benzodiazepines Scrn U Oth Cocaine Metabols U Cannabinoids Screen 04/18/18 04/18/18 04/18/18 13:30 13:30 15:50 WBC RBC Hgb Hct MCV MCH MCHC RDW Plt Count MPV Gran % Lymph % (Auto) [place] % (Auto) Eos % (Auto) Baso % (Auto) Gran # Lymph # (Auto) [place] # (Auto) Eos # (Auto) Baso # (Auto) PT INR APTT D-Dimer, Quantitative Sodium 136 Potassium 3.9 Chloride 102 Carbon Dioxide 26 Anion Gap 12 BUN 9 Creatinine 0.6 L Est GFR ( Amer) > 60 Est GFR (Non-Af Amer) > 60 Random Glucose 106 Calcium 9.0 Phosphorus Magnesium 1.8 Total Bilirubin 1.8 H AST 23 ALT 29 Alkaline Phosphatase 47 Lactate Dehydrogenase 490 Total Creatine Kinase 54 Troponin I < 0.01 Total Protein 7.2 Albumin 4.2 Globulin 3.0 Albumin/Globulin Ratio 1.4 TSH 3rd Generation 2.17 Urine Color Urine Appearance Urine pH Ur Specific [place] Urine Protein Urine Glucose (UA) Urine Ketones Urine Blood Urine Nitrate Urine Bilirubin Urine Urobilinogen Ur Leukocyte Esterase Urine RBC Urine WBC Ur Epithelial Cells Urine Bacteria Urine Opiates Screen Negative Urine Methadone Screen Negative Ur Barbiturates Screen Negative Ur Phencyclidine Scrn Negative Ur Amphetamines Screen Negative U Benzodiazepines Scrn Negative U Oth Cocaine Metabols Negative U Cannabinoids Screen Negative 04/19/18 04/19/18 04/19/18 06:30 06:30 06:30 WBC 4.6 D RBC 3.90 Hgb 11.9 L Hct 36.3 MCV 93.1 MCH 30.5 MCHC 32.8 RDW 12.2 Plt Count 194 MPV 10.2 Gran % 49.9 L Lymph % (Auto) 38.2 H [place] % (Auto) 8.6 H Eos % (Auto) 2.9 Baso % (Auto) 0.4 Gran # 2.28 Lymph # (Auto) 1.7 [place] # (Auto) 0.4 Eos # (Auto) 0.1 Baso # (Auto) 0.02 PT 13.5 H INR 1.17 APTT 47.8 H D-Dimer, Quantitative Sodium 139 Potassium 4.0 Chloride 107 Carbon Dioxide 29 Anion Gap 7 L BUN 6 L Creatinine 0.6 L Est GFR ( Amer) > 60 Est GFR (Non-Af Amer) > 60 Random Glucose 110 Calcium 8.8 Phosphorus 3.7 Magnesium 1.9 Total Bilirubin 1.7 H AST 17 ALT 29 Alkaline Phosphatase 47 Lactate Dehydrogenase Total Creatine Kinase Troponin I Total Protein 6.2 Albumin 3.5 Globulin 2.7 Albumin/Globulin Ratio 1.3 TSH 3rd Generation Urine Color Urine Appearance Urine pH Ur Specific [place] Urine Protein Urine Glucose (UA) Urine Ketones Urine Blood Urine Nitrate Urine Bilirubin Urine Urobilinogen Ur Leukocyte Esterase Urine RBC Urine WBC Ur Epithelial Cells Urine Bacteria Urine Opiates Screen Urine Methadone Screen Ur Barbiturates Screen Ur Phencyclidine Scrn Ur Amphetamines Screen U Benzodiazepines Scrn U Oth Cocaine Metabols U Cannabinoids Screen 04/19/18 04/19/18 12:00 12:00 WBC RBC Hgb Hct MCV MCH MCHC RDW Plt Count MPV Gran % Lymph % (Auto) [place] % (Auto) Eos % (Auto) Baso % (Auto) Gran # Lymph # (Auto) [place] # (Auto) Eos # (Auto) Baso # (Auto) PT INR APTT D-Dimer, Quantitative Sodium Potassium Chloride Carbon Dioxide Anion Gap BUN Creatinine Est GFR ( Amer) Est GFR (Non-Af Amer) Random Glucose Calcium Phosphorus Magnesium Total Bilirubin AST ALT Alkaline Phosphatase Lactate Dehydrogenase Total Creatine Kinase Troponin I Total Protein Albumin Globulin Albumin/Globulin Ratio TSH 3rd Generation Urine Color Light yellow Urine Appearance Clear Urine pH 7.5 Ur Specific [place] 1.010 Urine Protein Negative Urine Glucose (UA) 100 H Urine Ketones Negative Urine Blood Negative Urine Nitrate Negative Urine Bilirubin Negative Urine Urobilinogen 0.2 Ur Leukocyte Esterase Small H Urine RBC 0 - 2 Urine WBC 2 - 5 Ur Epithelial Cells 3 - 4 Urine Bacteria Few Urine Opiates Screen Negative Urine Methadone Screen Negative Ur Barbiturates Screen Negative Ur Phencyclidine Scrn Negative Ur Amphetamines Screen Negative U Benzodiazepines Scrn Negative U Oth Cocaine Metabols Negative U Cannabinoids Screen Negative Assessment & Plan - Assessment and Plan (Free Text) Assessment: A 37 year old female who came in to the ER due to "feeling of heat" upon her head with associated chest palpitations and shortness of breath about 20 minutes prior to arrival with resolution. She had similar symptoms before and had seen a machine bookkeeper. She was placed on Holter monitor with normal results. History of migraines, umbilical hernia repair, ,urinary tract infection, tachycardia.Ultrasound of lower extremities to rule out DVT done, pending results. CT of chest showed pulmonary embolus at right upper lobe.started on Lovenox. Hematology on consult .Echo to evaluate for any thrombus, done awaiting final results. Previous cardiac work up: 12/11/2017-ECHO- normal chambers, LVEF 57%, mild TR Plan: Denies shortness of breath at rest Heart rate controlled NSR at 90's Blood pressure stable Will start betablocker if goes to tachycardia, right now stable NSR at 80-90's Continue Lovenox for anticoagulation, may switch to Eliquis in am Continue current treatment Continue current medications Will follow up Plan and treatment discussed with Dr. Vaughn Thank you Dr. Cody for the opportunity of taking care of Cm Lim for Dr. Conrad - Date & Time Date: 04/19/18 Time: 12:00
[2018-04-19 19:03] VITALS: RESP 20
--- NOTE | 2018-04-19 19:31 | CP.PCM.CON ---
History of Present Illness - History of Present Illness History of Present Illness: Ms. Marquez marvin 37 y/o woman with pmhx signficant for migraines, recurrent UTI, who presents with a PE in the setting of prolonged vauge constellations of symptoms: palpitations for 1 years; and episodice SOB suddently worse day of admission. Patient states she has episodice migraines in the remote past occsionally accompanied by some diploplia. She ackowledges some diploplia now however and denies any migraines. Recently completed a course of macrobid for UTI. Denies any recent procedures, flights, prolonged periods of being sedentary, OCP's, any other medications, family history of VTE. ROS: 12 ROS otherwise negative Pain: denies PMD: Tonia Plunkett ALL: cipro; reglan PMHX: migraines; UTI PSHX: umbilical hernia; SX: never smoker; denies abuse of ETOH; illicits; works at home Medication: denies; had copper IUD 8 years ago Review of Systems - Constitutional Constitutional: As Per HPI - EENT Eyes: As Per HPI Nose/Mouth/Throat: As Per HPI - Cardiovascular Cardiovascular: As Per HPI - Respiratory Respiratory: As Per HPI - Gastrointestinal Gastrointestinal: As Per HPI - Musculoskeletal Musculoskeletal: As Per HPI - Integumentary Integumentary: As Per HPI - Neurological Neurological: As Per HPI - Psychiatric Psychiatric: As Per HPI - Endocrine Endocrine: As Per HPI - Hematologic/Lymphatic Hematologic: As Per HPI Past Patient History - Infectious Disease Hx of Infectious Diseases: None - Tetanus Immunizations Tetanus Immunization: Unknown - Past Social History Smoking Status: Never Smoked - CARDIAC Hx Cardiac Disorders: Yes (tachycardia) Other/Comment: had episode of sob/palpitations, felt like going to pass out 03/2018 came to [facility] ed heart rate was 148 - PULMONARY Hx Respiratory Disorders: No - NEUROLOGICAL Hx Neurological Disorder: Yes Hx Migraine: Yes - HEENT Hx HEENT Problems: No - RENAL Hx Chronic Kidney Disease: No - ENDOCRINE/METABOLIC Hx Endocrine Disorders: No - HEMATOLOGICAL/ONCOLOGICAL Hx Blood Disorders: No - INTEGUMENTARY Hx Dermatological Problems: No - MUSCULOSKELETAL/RHEUMATOLOGICAL Hx Falls: No - GASTROINTESTINAL Hx Gastrointestinal Disorders: Yes (umbilical 2016 w/mesh) - GENITOURINARY/GYNECOLOGICAL Hx Genitourinary Disorders: Yes Hx Urinary Tract Infection: Yes Other/Comment: pt just finished macrobid for uti then began to have sob/palp/tachycardia - PSYCHIATRIC Hx Substance Use: No - SURGICAL HISTORY Hx Surgeries: Yes Other/Comment: umbilicus herinal repair w/mesh 2016, c section 08/2014 - ANESTHESIA Hx Anesthesia: Yes Hx Anesthesia Reactions: No Hx Malignant Hyperthermia: No Meds Allergies/Adverse Reactions: Allergies Allergy/AdvReac Type Severity Reaction Status Date / Time ciprofloxacin [From Cipro] Allergy SWELLING Verified 04/13/18 16:34 metoclopramide [From Reglan] Allergy SWELLING Verified 04/13/18 16:34 - Medications Medications: Current Medications Enoxaparin Sodium (Lovenox) 60 mg SC Q12H [facility]; Protocol Last Admin: 04/19/18 17:38 Dose: 60 mg Famotidine (Pepcid) 40 mg PO HS [facility] Physical Exam - Constitutional Appears: Non-toxic - Head Exam Head Exam: ATRAUMATIC, NORMAL INSPECTION, NORMOCEPHALIC - Neck Exam Neck exam: Positive for: Normal Inspection - Respiratory Exam Respiratory Exam: Clear to Auscultation Bilateral, NORMAL BREATHING PATTERN - Cardiovascular Exam Cardiovascular Exam: Tachycardia, REGULAR RHYTHM. absent: Systolic Murmur - GI/Abdominal Exam GI & Abdominal Exam: Normal Bowel Sounds, Soft. absent: Tenderness - Neurological Exam Neurological exam: Alert, CN II-XII Intact, Normal Gait, Oriented x3, Reflexes Normal - Skin Skin Exam: Dry, Intact, Normal Color, Warm Results - Vital Signs Recent Vital Signs: Last Vital Signs Temp 97.7 F 04/19/18 18:00 Pulse 109 H 04/19/18 18:00 Resp 20 04/19/18 18:00 BP 148/76 04/19/18 18:00 Pulse Ox 98 04/19/18 06:00 - Labs Result Diagrams: 04/19/18 06:30 04/19/18 06:30 Labs: Laboratory Results - last 24 hr 04/19/18 04/19/18 04/19/18 06:30 06:30 06:30 WBC 4.6 D RBC 3.90 Hgb 11.9 L Hct 36.3 MCV 93.1 MCH 30.5 MCHC 32.8 RDW 12.2 Plt Count 194 MPV 10.2 Gran % 49.9 L Lymph % (Auto) 38.2 H [place] % (Auto) 8.6 H Eos % (Auto) 2.9 Baso % (Auto) 0.4 Gran # 2.28 Lymph # (Auto) 1.7 [place] # (Auto) 0.4 Eos # (Auto) 0.1 Baso # (Auto) 0.02 PT 13.5 H INR 1.17 APTT 47.8 H Sodium 139 Potassium 4.0 Chloride 107 Carbon Dioxide 29 Anion Gap 7 L BUN 6 L Creatinine 0.6 L Est GFR ( Amer) > 60 Est GFR (Non-Af Amer) > 60 Random Glucose 110 Calcium 8.8 Phosphorus 3.7 Magnesium 1.9 Total Bilirubin 1.7 H AST 17 ALT 29 Alkaline Phosphatase 47 Total Protein 6.2 Albumin 3.5 Globulin 2.7 Albumin/Globulin Ratio 1.3 Urine Color Urine Appearance Urine pH Ur Specific [place] Urine Protein Urine Glucose (UA) Urine Ketones Urine Blood Urine Nitrate Urine Bilirubin Urine Urobilinogen Ur Leukocyte Esterase Urine RBC Urine WBC Ur Epithelial Cells Urine Bacteria Urine Opiates Screen Urine Methadone Screen Ur Barbiturates Screen Ur Phencyclidine Scrn Ur Amphetamines Screen U Benzodiazepines Scrn U Oth Cocaine Metabols U Cannabinoids Screen 04/19/18 04/19/18 12:00 12:00 WBC RBC Hgb Hct MCV MCH MCHC RDW Plt Count MPV Gran % Lymph % (Auto) [place] % (Auto) Eos % (Auto) Baso % (Auto) Gran # Lymph # (Auto) [place] # (Auto) Eos # (Auto) Baso # (Auto) PT INR APTT Sodium Potassium Chloride Carbon Dioxide Anion Gap BUN Creatinine Est GFR ( Amer) Est GFR (Non-Af Amer) Random Glucose Calcium Phosphorus Magnesium Total Bilirubin AST ALT Alkaline Phosphatase Total Protein Albumin Globulin Albumin/Globulin Ratio Urine Color Light yellow Urine Appearance Clear Urine pH 7.5 Ur Specific [place] 1.010 Urine Protein Negative Urine Glucose (UA) 100 H Urine Ketones Negative Urine Blood Negative Urine Nitrate Negative Urine Bilirubin Negative Urine Urobilinogen 0.2 Ur Leukocyte Esterase Small H Urine RBC 0 - 2 Urine WBC 2 - 5 Ur Epithelial Cells 3 - 4 Urine Bacteria Few Urine Opiates Screen Negative Urine Methadone Screen Negative Ur Barbiturates Screen Negative Ur Phencyclidine Scrn Negative Ur Amphetamines Screen Negative U Benzodiazepines Scrn Negative U Oth Cocaine Metabols Negative U Cannabinoids Screen Negative Assessment & Plan (1) Pulmonary embolus Status: Acute - Assessment and Plan (Free Text) Assessment: Ms. Marquez marvin 37 y/o woman with pmhx signficant for migraines, recurrent UTI, who presents with a PE in the setting of prolonged vauge constellations of symptoms: palpitations for 1 years; and episodice SOB suddently worse day of admission. Can continues 1mg/kg Lovenox for now. Consider obtaining CT head givinen new onset diploplia w/o symptoms of migraines. -obtain CT head w/o contrast -continue lovneox 1mg/kg BID can consider switching either to Xarelto or apixaban once medically stable per primary team's discretion -obtain Duplex of b/l legs -order anti-phospholipid panel; otherwise hold off on other thrombophilia w/up as this can be done as an outpatient, will not pack changer, and resutls can be off in the setting of an acute thrombosisl -f/u TTE reutls Aguila Mckeon MD Hematology
--- NOTE | 2018-04-19 22:23 | CARD ---
APPROVED REPORT Date of service: 04/18/2018 EKG Measurement Heart [id number] <Conclusion> Normal sinus rhythm with sinus arrhythmia Normal ECG
[2018-04-20] MEDS: Enoxaparin 60 mg Syringe SC SCH (06:38)
[2018-04-20 06:49] VITALS: O2SAT 98
[2018-04-20 07:23] LABS: BASO # 0.02 K/mm3 (0.0-2.0); BASO % 0.4 % (0.0-3.0); EOS # 0.2 (0.0-0.7); EOS % 3.7 % (1.5-5.0); GRAN # 1.97 (1.4-6.5); GRAN % 42.9 % (50.0-68.0); HEMOGLOBIN 12.6 g/dL (12.0-16.0); LYMPH % 43.4 % (22.0-35.0); MEAN CELL VOLUME 92.1 fl (80.0-105.0); MEAN CORPUSCULAR HGB CONC 33.6 g/dl (31.0-37.0); MEAN PLATELET VOLUME 10.3 fl (7.0-11.0); MONO # 0.4 (0.1-0.6); MONO % 9.6 % (1.0-6.0); RBC 4.07 10^6/uL (3.5-6.1); RED CELL DISTRIBUTION WIDTH 12.1 % (11.5-14.5); WHITE BLOOD COUNT 4.6 10^3/uL (4.5-11.0)
[2018-04-20 07:36] LABS: INR 1.1; PARTIAL THROMBOPLASTIN TIME 42.2 Seconds (25.1-36.5); PROTHROMBIN TIME 12.7 SECONDS (9.4-12.5)
[2018-04-20 07:47] LABS: ALB/GLOB RATIO 1.3 (1.1-1.8); ALBUMIN 3.8 g/dL (3.0-4.8); ALT/SGPT 24 U/L (7-56); AST/SGOT 18 U/L (14-36); BLOOD UREA NITROGEN 8 mg/dL (7-21); CALCIUM 8.9 mg/dL (8.4-10.5); GFR NON-AFRICAN AMERICAN > 60
--- NOTE | 2018-04-20 08:32 | CON ---
DATE: 04/19/2018 This consult being done on behalf of Dr. Conrad whom we are covering. REASON FOR CONSULTATION: Cardiac evaluation. The patient admitted with pulmonary embolism. HISTORY OF PRESENT ILLNESS: The patient is a 37-year-old who complains of feeling heat head with associated palpitation. She thinks something travel high to the lower down part and sometimes she feels palpitation, but she has been monitored long time with racquet maker and soccer player and they never found any arrhythmia. The patient has history of migraine, umbilical hernia repair, , urinary tract infection. The patient found to have on CT scan of the chest, pulmonary embolism limited to segmental branches of the right upper lobe. The patient states that she has not followed a long time with soccer player for cardiac arrhythmia and racquet maker, but she was never treated for arrhythmia and she continued to follow with them. So, the patient says that she had echocardiogram done by them and the Holter monitor was put on for couple of weeks and it did not show any arrhythmia. The patient now on Lovenox 60 mg subcutaneously every 12 hours, famotidine 40 mg p.o. at bedtime and the patient's repeat echo has been again ordered in view of the new finding of pulmonary embolism. So, the patient right now is asymptomatic. We will follow the echo and Dr. Conrad will follow the patient starting tonight. Deborah Vaughn MD
--- NOTE | 2018-04-20 10:03 | CT ---
Date of service: 04/19/2018 PROCEDURE: CT HEAD WITHOUT CONTRAST. HISTORY: blurred vision COMPARISON: None available. TECHNIQUE: Axial computed tomography images were obtained through the head/brain without intravenous contrast. Supplemental Coronal and Sagittal projections created and reviewed. Radiation dose: Total exam DLP = 998.11 mGy-cm. This CT exam was performed using one or more of the following dose reduction techniques: Automated exposure control, adjustment of the mA and/or kV according to patient size, and/or use of iterative reconstruction technique. FINDINGS: HEMORRHAGE: No intracranial hemorrhage. BRAIN: No mass effect or edema. No atrophy or chronic microvascular ischemic changes. VENTRICLES: Unremarkable. No hydrocephalus. CALVARIUM: Unremarkable. PARANASAL SINUSES: Unremarkable as visualized. No significant inflammatory changes. MASTOID AIR CELLS: Unremarkable as visualized. No inflammatory changes. OTHER FINDINGS: None. IMPRESSION: No acute intracranial abnormalities. No significant findings to account for the clinical presentation. Concordant results (preliminary interpretation) provided by [employer]. Procedure Completed: 19:08. Preliminary Report: Dictated and Authenticated: 19:35. Final Interpretation: 09:57. April 20, 2018
--- NOTE | 2018-04-20 14:35 | PN ---
DATE: 04/20/2018 SUBJECTIVE: The patient denies any chest pain. She is noted to be tachycardic on exertion. PHYSICAL EXAMINATION: VITAL SIGNS: Blood pressure 102/66, heart rate 76, temperature 97.8, respiration 20. HEENT: Normocephalic. CHEST: Clear. HEART: S1 and S2 regular. EXTREMITIES: No edema. LABORATORY DATA: Head CT scan without contrast, no acute intracranial findings. Venous Doppler of lower extremity, no DVT. Chest CT angiogram, pulmonary embolus limited to the segmental branches of the right upper lobe. ASSESSMENT: 1. Pulmonary embolus. 2. Palpitations and exertional sinus tachycardia. RECOMMENDATIONS: Case was discussed with the medical team. Continue therapeutic subcutaneous Lovenox. Obtain an echocardiogram and perform blood screening for hypercoagulable state. Luis Conrad MD
--- NOTE | 2018-04-20 16:34 | CP.PCM.PN ---
Subjective - Date & Time of Evaluation Date of Evaluation: 04/20/18 Time of Evaluation: 11:00 - Subjective Subjective: PGY-2 heme/onc progress note for Dr Aguila Mckeon No acute events noted overnight. Patient did not offer any complaints today. She denied diplopia - stated the episode yesterday resolved after 1 min and has not returned. She denied leg pain, chest pain, sob, palpitations. Objective - Vital Signs/Intake and Output Vital Signs (last 24 hours): Temp Pulse Resp BP Pulse Ox 98 F 89 20 113/71 98 04/20/18 11:56 04/20/18 11:56 04/20/18 11:56 04/20/18 11:56 04/20/18 06:00 Intake and Output: 04/20/18 04/20/18 06:59 18:59 Intake Total 200 Output Total 0 Balance 200 - Medications Medications: Current Medications Enoxaparin Sodium (Lovenox) 60 mg SC Q12H [facility]; Protocol Last Admin: 04/20/18 06:38 Dose: 60 mg Famotidine (Pepcid) 40 mg PO HS [facility] Last Admin: 04/19/18 21:30 Dose: 40 mg - Labs Labs: 04/20/18 07:00 04/20/18 07:00 PT 12.7 SECONDS (9.4-12.5) H 04/20/18 07:00 INR 1.10 04/20/18 07:00 APTT 42.2 Seconds (25.1-36.5) H 04/20/18 07:00 - Additional Findings Additional findings: - Constitutional Appears: Non-toxic, No Acute Distress - Head Exam Head Exam: ATRAUMATIC, NORMOCEPHALIC - Eye Exam Eye Exam: EOMI, Normal appearance - ENT Exam ENT Exam: Mucous Membranes Moist - Neck Exam Neck Exam: Full ROM - Respiratory Exam Respiratory Exam: Clear to Ausculation Bilateral, NORMAL BREATHING PATTERN. absent: Accessory Muscle Use, Chest Wall Tenderness, Decreased Breath Sounds, Prolonged Expiratory Phase, Rales, Rhonchi, Wheezes, Respiratory Distress, Stridor - Cardiovascular Exam Cardiovascular Exam: REGULAR RHYTHM, +S1, +S2 - GI/Abdominal Exam GI & Abdominal Exam: Soft, Normal Bowel Sounds. absent: Tenderness - Extremities Exam Extremities Exam: Full ROM, Normal Capillary Refill, Normal Inspection. absent: Calf Tenderness, Joint Swelling, Pedal Edema, Tenderness - Neurological Exam Neurological Exam: Alert, Awake, Oriented x3 - Psychiatric Exam Psychiatric exam: Normal Affect, Normal Mood - Skin Skin Exam: Dry, Intact, Normal Color, Warm Assessment and Plan - Assessment and Plan (Free Text) Plan: (1) Pulmonary embolus Status: Acute - Assessment and Plan (Free Text) Assessment: Ms. Marquez marvin 37 y/o woman with pmhx signficant for migraines, recurrent UTI, who presents with a PE in the setting of prolonged vague constellations of symptoms: palpitations for 1 years; and episodic SOB suddenly worse day of admission. Can continue 1mg/kg Lovenox for now. -CT head w/o contrast ordered for short 1 min episode of diplopia now resolved - negative for pathology -continue lovneox 1mg/kg BID can consider switching either to Xarelto or apixaban once medically stable per primary team's discretion -Duplex of b/l legs - negative for DVT -f/u TTE results -order anti-phospholipid panel; otherwise hold off on other thrombophilia w/up as this can be done as an outpatient, will not change management administrator, and results can be off in the setting of an acute thrombosis -Patient should follow-up in Dr Mckeon's office next week Case discussed with Dr Aguila Mckeon
--- NOTE | 2018-04-20 17:50 | CARD ---
APPROVED REPORT Date of service: 04/20/2018 EXAM: Two-dimensional and M-mode echocardiogram with Doppler and color Doppler. INDICATION Pulmonary Embolism 2D DIMENSIONS Left Atrium (2D)3.1 (1.6-4.0cm)IVSd0.8 (0.7-1.1cm) LVDd3.4 (3.9-5.9cm)PWd0.8 (0.7-1.1cm) LVDs2.4 (2.5-4.0cm)FS (%) 30.2 % LVEF (%)58.6 (>50%) M-Mode DIMENSIONS Aortic Root2.50 (2.2-3.7cm)Aortic Cusp Exc.1.70 (1.5-2.0cm) Aortic Valve AoV Peak Xiiakclz578.0cm/Lu Peak GR.5mmHg Mitral Valve E/A ratio0.0 TDI E/Lateral E'0.0E/Medial E'0.0 Tricuspid Valve TR Peak Oozvheml568ud/sRAP [id number] Peak Gr.12mmHg [id number] LEFT VENTRICLE The left ventricle is normal size. There is normal left ventricular wall thickness. The left ventricular function is normal. The left ventricular ejection fraction is within the normal range. There is normal LV segmental wall motion. RIGHT VENTRICLE The right ventricle is normal size. There is normal right ventricular wall thickness. The right ventricular systolic function is normal. ATRIA The left atrium size is normal. The right atrium size is normal. AORTIC VALVE The aortic valve is normal in structure. No aortic regurgitation is present. There is no aortic valvular stenosis. MITRAL VALVE The mitral valve is normal in structure. There is no mitral valve regurgitation noted. TRICUSPID VALVE There is trace tricuspid regurgitation. GREAT VESSELS The aortic root is normal in size. The IVC is dilated. PERICARDIAL EFFUSION There is no pericardial effusion. <Conclusion> There is normal left ventricular wall thickness. The left ventricular function is normal. The left ventricular ejection fraction is within the normal range. There is normal LV segmental wall motion. The right ventricle is normal size. The right ventricular systolic function is normal. There is trace tricuspid regurgitation.
[2018-04-20 18:09] VITALS: BP 108/70; PULSE 81; TEMP 98.3
--- NOTE | 2018-04-21 04:13 | CP.PCM.DIS ---
Provider - Provider Date of Admission: 04/18/18 18:03 Attending physician: Nia Cody MD Primary care physician: Bertah Plunkett MD Consults: 04/18/18 18:59 Cardiology Consult Routine Comment: Consulting Provider: Luis Conrad Consulting Physician: Luis Conrad Reason for Consult: Pulmonary embolus Hematology Oncology Consult Routine Comment: Consulting Provider: Jerel Mckeon Consulting Physician: Jerel Mckeon Reason for Consult: Pulmonary embolus Time Spent in preparation of Discharge (in minutes): 40 Diagnosis - Discharge Diagnosis (1) Pulmonary embolus Status: Ruled-out Priority: Medium Hospital Course - Lab Results Lab Results: Micro Results 04/18/18 13:30 Urine,Clean Catch Urine Culture - Preliminary Gram Positive Cocci Lactobacillus Species Most Recent Lab Values WBC 4.6 10^3/uL (4.5-11.0) 04/20/18 07:00 RBC 4.07 10^6/uL (3.5-6.1) 04/20/18 07:00 Hgb 12.6 g/dL (12.0-16.0) 04/20/18 07:00 Hct 37.5 % (36.0-48.0) 04/20/18 07:00 MCV 92.1 fl (80.0-105.0) 04/20/18 07:00 MCH 31.0 pg (25.0-35.0) 04/20/18 07:00 MCHC 33.6 g/dl (31.0-37.0) 04/20/18 07:00 RDW 12.1 % (11.5-14.5) 04/20/18 07:00 Plt Count 212 10^3/uL (120.0-450.0) 04/20/18 07:00 MPV 10.3 fl (7.0-11.0) 04/20/18 07:00 Gran % 42.9 % (50.0-68.0) L 04/20/18 07:00 Lymph % (Auto) 43.4 % (22.0-35.0) H 04/20/18 07:00 [place] % (Auto) 9.6 % (1.0-6.0) H 04/20/18 07:00 Eos % (Auto) 3.7 % (1.5-5.0) 04/20/18 07:00 Baso % (Auto) 0.4 % (0.0-3.0) 04/20/18 07:00 Gran # 1.97 (1.4-6.5) 04/20/18 07:00 Lymph # (Auto) 2.0 (1.2-3.4) 04/20/18 07:00 [place] # (Auto) 0.4 (0.1-0.6) 04/20/18 07:00 Eos # (Auto) 0.2 (0.0-0.7) 04/20/18 07:00 Baso # (Auto) 0.02 K/mm3 (0.0-2.0) 04/20/18 07:00 PT 12.7 SECONDS (9.4-12.5) H 04/20/18 07:00 INR 1.10 04/20/18 07:00 APTT 42.2 Seconds (25.1-36.5) H 04/20/18 07:00 Fibrinogen 253 mg/dl (200-400) 04/20/18 07:00 D-Dimer, Quantitative 332 ng/mlDDU (0-243) H 04/20/18 07:00 Sodium 138 mmol/L (132-148) 04/20/18 07:00 Potassium 4.1 mmol/L (3.6-5.0) 04/20/18 07:00 Chloride 104 mmol/L (98-107) 04/20/18 07:00 Carbon Dioxide 28 mmol/L (21-33) 04/20/18 07:00 Anion Gap 9 (10-20) L 04/20/18 07:00 BUN 8 mg/dL (7-21) 04/20/18 07:00 Creatinine 0.6 mg/dl (0.7-1.2) L 04/20/18 07:00 Est GFR ( Amer) > 60 04/20/18 07:00 Est GFR (Non-Af Amer) > 60 04/20/18 07:00 Random Glucose 93 mg/dL (70-110) 04/20/18 07:00 Calcium 8.9 mg/dL (8.4-10.5) 04/20/18 07:00 Phosphorus 4.2 mg/dL (2.5-4.5) 04/20/18 07:00 Magnesium 1.9 mg/dL (1.7-2.2) 04/20/18 07:00 Total Bilirubin 1.2 mg/dL (0.2-1.3) 04/20/18 07:00 AST 18 U/L (14-36) 04/20/18 07:00 ALT 24 U/L (7-56) 04/20/18 07:00 Alkaline Phosphatase 47 U/L (38-126) 04/20/18 07:00 Lactate Dehydrogenase 490 U/L (333-699) 04/18/18 13:30 Total Creatine Kinase 54 U/L (35-230) 04/18/18 13:30 Troponin I < 0.01 ng/mL 04/18/18 13:30 Total Protein 6.7 g/dL (5.8-8.3) 04/20/18 07:00 Albumin 3.8 g/dL (3.0-4.8) 04/20/18 07:00 Globulin 2.9 gm/dL 04/20/18 07:00 Albumin/Globulin Ratio 1.3 (1.1-1.8) 04/20/18 07:00 TSH 3rd Generation 2.17 mIU/mL (0.46-4.68) 04/18/18 13:30 Urine Color Light yellow (YELLOW) 04/19/18 12:00 Urine Appearance Clear (CLEAR) 04/19/18 12:00 Urine pH 7.5 (4.7-8.0) 04/19/18 12:00 Ur Specific [place] 1.010 (1.005-1.035) 04/19/18 12:00 Urine Protein Negative mg/dL (<30 mg/dL) 04/19/18 12:00 Urine Glucose (UA) 100 mg/dL (NEGATIVE) H 04/19/18 12:00 Urine Ketones Negative mg/dL (NEGATIVE) 04/19/18 12:00 Urine Blood Negative (NEGATIVE) 04/19/18 12:00 Urine Nitrate Negative (NEGATIVE) 04/19/18 12:00 Urine Bilirubin Negative (NEGATIVE) 04/19/18 12:00 Urine Urobilinogen 0.2 E.U./dL (<1 E.U./dL) 04/19/18 12:00 Ur Leukocyte Esterase Small [place]/uL (NEGATIVE) H 04/19/18 12:00 Urine RBC 0 - 2 /hpf (0-2) 04/19/18 12:00 Urine WBC 2 - 5 /hpf (0-6) 04/19/18 12:00 Ur Epithelial Cells 3 - 4 /hpf (0-5) 04/19/18 12:00 Urine Bacteria Few /hpf (NONE) 04/19/18 12:00 Urine HCG, Qual Negative (NEGATIVE) 04/19/18 20:30 Urine Opiates Screen Negative (NEGATIVE) 04/19/18 12:00 Urine Methadone Screen Negative (NEGATIVE) 04/19/18 12:00 Ur Barbiturates Screen Negative (NEGATIVE) 04/19/18 12:00 Ur Phencyclidine Scrn Negative (NEGATIVE) 04/19/18 12:00 Ur Amphetamines Screen Negative (NEGATIVE) 04/19/18 12:00 U Benzodiazepines Scrn Negative (NEGATIVE) 04/19/18 12:00 U Oth Cocaine Metabols Negative (NEGATIVE) 04/19/18 12:00 U Cannabinoids Screen Negative (NEGATIVE) 04/19/18 12:00 - Hospital Course Hospital Course: 36 year old female with PMH of migraines and recurrent UTI's presenting to the hospital for SOB and chest palpitations that began shortly prior to arrival. Patient states she had similar symptoms for one year described as intermittent, non exertional and says chest palpitations were associated with nausea, vomiting and SOB. She states symptoms tend to be worse at night and denies any alleviating or exacerbating factors. 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 She had multiple ED visits for similar symptoms with the last visit being 2 days prior for bilateral calf pain and was discharged after lower extremity dopplers were unremarkable. Her last hospital admission was on 12/10/2017 for similar symptoms and CTA at that time was indeterminate due to timing of dye and subsequent VQ scan showed low probability for PE. During hospital course CTA Chest was completed which revealed a pulmonary embolus limited to the segmental branches of the RUL. She was subsequently started on therapeutic lovenox at 1mg/kg (60mg/day SC). Pt also complained of blurry vision, CT Head was performed which was negative. Cardiology was consulted and ordered echocardiogram which revealed normal LVEF with no abnormalities. Hematology was consulted and evaluated patient. Recommended discharge on oral anticoagulant with follow-up outpatient. Upon discharge, pt reported improvement in symptoms. Pt given instructions of anticoagulation, and to return to ED if symptoms returned. Discharge Exam - Head Exam Head Exam: ATRAUMATIC, NORMAL INSPECTION, NORMOCEPHALIC - Eye Exam Eye Exam: EOMI, Normal appearance - ENT Exam ENT Exam: Mucous Membranes Moist, Normal Exam - Neck Exam Neck exam: Normal Inspection - Respiratory Exam Respiratory Exam: NORMAL BREATHING PATTERN, UNREMARKABLE - Cardiovascular Exam Cardiovascular Exam: REGULAR RHYTHM, +S1, +S2 - GI/Abdominal Exam GI & Abdominal Exam: Normal Bowel Sounds, Soft, Unremarkable - Extremities Exam Extremities exam: normal inspection - Neurological Exam Neurological exam: Alert, Oriented x3 - Psychiatric Exam Psychiatric exam: Normal Affect, Normal Mood - Skin Skin Exam: Dry, Intact, Warm Discharge Plan - Discharge Medications Prescriptions: Rivaroxaban [Xarelto] 15 mg PO BID 21 Days #42 tab Rivaroxaban [Xarelto] 20 mg PO DAILY #7 tab - Follow Up Plan Condition: FAIR Disposition: HOME/ ROUTINE Instructions: Pulmonary Embolism (DC), Pulmonary Embolism (GEN) Additional Instructions: Please follow up with your primary care doctor, Dr. Plunkett, within 3-5 days of being discharged from the hospital Please follow up with your inside sales supervisor (blood doctor), Dr. Mckeon, within 7 days of being discharged from the hospital Please follow up with your patrol police sergeant (heart doctor), Dr. Derrek Archuleta, within 1 week of being discharged from the hospital Please take the medication Xarelto as you have been prescribed: 15mg twice a day for the first 21 days, then take 20mg daily YOU WILL NEED TO GET REFILLS OF THE MEDICATION FROM YOUR PRIMARY CARE DOCTOR OR PROCESS SAFETY ENGINEERING TECHNOLOGIST. It is important that you continue taking this medication every day. Please discuss with your primary care doctor that you are taking this medication. Do not drink alcohol, take aspirin, or NSAIDS (ibuprofen, aleve, motrin, etc) while on this medication. Please be careful to report to the ED if you fall or injure yourself, as this medication can cause bleeding. If your symptoms return or worsen, please return to the nearest emergency room Referrals: Bertha Plunkett MD [Primary Care Provider] - Jerel Mckeon MD [Staff Provider] -
== END 2018-04-20 21:22 | disposition home or self-care (01) | DRG 78 ==
LOC: ED 13:01 → ERH 18:03 → 2RNO 21:17
PROVIDERS: ADMIT Internal Medicine; ATTEND Internal Medicine
DX: I26.99 Other pulmonary embolism without acute cor pulmonale (principal); G43.909 Migraine, unspecified, not intractable, without status migrainosus; Z87.440 Personal history of urinary (tract) infections

== ENCOUNTER 2018-04-23 11:39 | Emergency (ER) | payer MEDICAID ==
[2018-04-23 11:40] VITALS: BMI 20.6
[2018-04-23 11:58] VITALS: TEMP 98.1; O2SAT 100
[2018-04-23] MEDS ORDERED: Sodium Chloride 0.9% 1,000 ML IV STA (12:26)
--- NOTE | 2018-04-23 12:46 | ED PDOC ---
Arrival/HPI - General Chief Complaint: Palpitations Time Seen by Provider: 04/23/18 11:50 Historian: Patient - History of Present Illness Narrative History of Present Illness (Text): 04/23/18 12:15 37 year old female, whose past medical history includes migraines, (08/2014), umbilical hernia repair (2015), allergy to ciprofloxacin and metoclopramide, who presents to the Emergency department complaining of nausea, dizziness and palpitations ever since 02:00 this morning. Patient reports she felt her heart rate going up early this morning, noting associated nausea and shaking. Pt states she was just sent home on 04/20/18 after being admitted for Pulmonary Embolism, and given blood thinners for follow up care. Patient notes she has been taking Xarelto 15mg BID PO as prescribed, stating she takes it at 06:00 and 18:00 daily. Patient states she last took her medication this morning at 06:00. Patient denies any chest pain, vomiting, fever, rashes, leg edema, or any other complaints. Patient notes she has never smoked or consumed EtOH. PMD: Bertha Suarez Time/Duration: Other (Patient notes onset as 02:00 this morning) Symptom Onset: Sudden Symptom Course: Unchanged Activities at Onset: Rest Context: Home Past Medical History - Provider Review Nursing Documentation Reviewed: Yes - Infectious Disease Hx of Infectious Diseases: None - Tetanus Immunization Tetanus Immunization: Unknown - Cardiac Hx Cardiac Disorders: Yes (tachycardia) - Pulmonary Hx Respiratory Disorders: No Hx Pulmonary Embolism: Yes - Neurological Hx Neurological Disorder: Yes Hx Migraine: Yes - HEENT Hx HEENT Disorder: No - Renal Hx Renal Disorder: No - Endocrine/Metabolic Hx Endocrine Disorders: No - Hematological/Oncological Hx Blood Disorders: No - Integumentary Hx Dermatological Disorder: No - Musculoskeletal/Rheumatological Hx Musculoskeletal Disorders: No - Gastrointestinal Hx Gastrointestinal Disorders: Yes (hernia repair) - Genitourinary/Gynecological Hx Genitourinary Disorders: Yes Hx Urinary Tract Infection: Yes - Psychiatric Hx Psychophysiologic Disorder: No Hx Substance Use: No - Surgical History Hx Section: Yes Other/Comment: umbilicus herinal repair - Anesthesia Hx Anesthesia: Yes Hx Anesthesia Reactions: No Hx Malignant Hyperthermia: No Family/Social History - Physician Review Nursing Documentation Reviewed: Yes Family/Social History: No Known Family HX Smoking Status: Never Smoked Hx Alcohol Use: No Hx Substance Use: No Allergies/Home Meds Allergies/Adverse Reactions: Allergies ciprofloxacin [From Cipro] Allergy (Verified 04/13/18 16:34) SWELLING metoclopramide [From Reglan] Allergy (Verified 04/13/18 16:34) SWELLING Review of Systems - Physician Review All systems were reviewed & negative as marked: Yes - Review of Systems Constitutional: absent: Fevers Cardiovascular: Palpitations. absent: Normal, Chest Pain Gastrointestinal: Nausea. absent: Normal, Vomiting Musculoskeletal: absent: Normal, Joint Swelling Skin: Normal. absent: Rash Neurological: Dizziness. absent: Normal Physical Exam Vital Signs Reviewed: Yes Vital Signs Temp Pulse Resp BP Pulse Ox 04/23/18 11:40 98.1 F 114 H 20 103/65 100 Temperature: Afebrile Blood Pressure: Normal Pulse: Tachycardic Respiratory Rate: Normal Appearance: Positive for: Well-Appearing, Non-Toxic Pain Distress: None Mental Status: Positive for: Alert and Oriented X 3 - Systems Exam Head: Present: Atraumatic, Normocephalic Pupils: Present: PERRL Extroacular Muscles: Present: EOMI Conjunctiva: Present: Normal Mouth: Present: Moist Mucous Membranes Pharnyx: Present: Normal. No: ERYTHEMA, EXUDATE, Uvular Deviation (uvula midline) Neck: Present: Normal Range of Motion Respiratory/Chest: Present: Clear to Auscultation (clear to auscultation bilaterally), Good Air Exchange. No: Respiratory Distress, Accessory Muscle Use, Wheezes, Rales, Rhonchi Cardiovascular: Present: Regular Rate and Rhythm, Normal S1, S2. No: Murmurs Abdomen: No: Tenderness, Distention, Peritoneal Signs Back: Present: Normal Inspection Upper Extremity: Present: Normal Inspection. No: Cyanosis, Edema Lower Extremity: Present: Normal Inspection. No: Edema Neurological: Present: GCS=15, CN II-XII Intact, Speech Normal Skin: Present: Warm, Dry, Normal Color. No: Rashes Psychiatric: Present: Alert, Oriented x 3, Normal Insight, Normal Concentration Medical Decision Making ED Course and Treatment: 04/23/18 12:15 Impression: 37 year old female presents to Emergency department: anxiety vs PE Plan: -- EKG -- Labs -- IV fluids -- O2 via Nasal Cannula -- Urinalysis -- Reassess and disposition Prior Visits: Notes and results from previous visits were reviewed. Patient was last seen in the emergency department on 04/18/18 with complaints of "feeling of heat" upon her head with associated chest palpitations and shortness of breath about 20 minutes prior to arrival. Pt was hospitalized in fair condition with diagnosis of pulmonary embolism. Progress Notes: 04/23/18 13:30 Upon evaluation, pt still has a fast heart rate. Pt has no shortness of breath and agrees to repeat the CTA. 04/23/18 17:10 Upon reevaluation, patient has no PE. Patient is feeling better and is getting discharged. - EKG Interpretation EKG Interpretation (Text): 04/23/18 EKG: Ordered, reviewed, and independently interpreted the EKG. Rate : 91 BPM Rhythm : NSR Interpretation : No ST-segment elevations or depressions, no T-wave inversions, normal intervals. Interpreted by ED Physician: Yes Type: 12 lead EKG - Medication Orders Current Medication Orders: Sodium Chloride (Sodium Chloride 0.9%) 1,000 mls @ 999 mls/hr IV .Q1H1M STA Stop: 04/23/18 13:26 - Scribe Statement The provider has reviewed the documentation as recorded by the Scribe Andreia Feldman All medical record entries made by the Scribe were at my direction and personally dictated by me. I have reviewed the chart and agree that the record accurately reflects my personal performance of the history, physical exam, medical decision making, and the department course for this patient. I have also personally directed, reviewed, and agree with the discharge instructions and disposition. Disposition/Present on Arrival - Present on Arrival Any Indicators Present on Arrival: No History of DVT/PE: No History of Uncontrolled Diabetes: No Urinary Catheter: No History of Decub. Ulcer: No History Surgical Site Infection Following: None - Disposition Have Diagnosis and Disposition been Completed?: Yes Diagnosis: Chest pain Disposition: HOME/ ROUTINE Disposition Time: 17:54 Condition: IMPROVED Discharge Instructions (ExitCare): Chest Pain (ED) Referrals: Bertha Plunkett MD [Primary Care Provider] - Follow up with primary Forms: [employer] ([place]), WORK NOTE
[2018-04-23 12:57] LABS: PH,URINE 7.5 (4.7-8.0); URINE BILIRUBIN NEGATIVE (NEGATIVE); URINE BLOOD NEGATIVE (NEGATIVE); URINE GLUCOSE (UA) NEGATIVE (NEGATIVE); URINE LEUKOCYTE ESTERASE MODERATE Leu/uL (NEGATIVE); URINE PROTEIN NEGATIVE mg/dL (<30 mg/dL); URINE UROBILINOGEN 0.2 E.U./dL (<1 E.U./dL)
[2018-04-23 12:58] LABS: BASO # 0.02 K/mm3 (0.0-2.0); BASO % 0.3 % (0.0-3.0); EOS # 0.3 (0.0-0.7); EOS % 3.9 % (1.5-5.0); GRAN # 4.55 (1.4-6.5); GRAN % 69.1 % (50.0-68.0); HEMOGLOBIN 12.7 g/dL (12.0-16.0); LYMPH # 1.1 (1.2-3.4); LYMPH % 15.9 % (22.0-35.0); MEAN CELL VOLUME 90.9 fl (80.0-105.0); MEAN CORPUSCULAR HEMOGLOBIN 31.3 pg (25.0-35.0); MEAN CORPUSCULAR HGB CONC 34.4 g/dl (31.0-37.0); MEAN PLATELET VOLUME 10.1 fl (7.0-11.0); MONO # 0.7 (0.1-0.6); MONO % 10.8 % (1.0-6.0); RBC 4.06 10^6/uL (3.5-6.1); RED CELL DISTRIBUTION WIDTH 12.1 % (11.5-14.5); WHITE BLOOD COUNT 6.6 10^3/uL (4.5-11.0)
[2018-04-23 12:59] LABS: URINE APPEARANCE CLEAR (CLEAR); URINE COLOR YELLOW (YELLOW)
[2018-04-23 13:06] LABS: INR 1.3; PARTIAL THROMBOPLASTIN TIME 45.7 Seconds (25.1-36.5)
[2018-04-23 13:10] LABS: ALB/GLOB RATIO 1.3 (1.1-1.8); ALBUMIN 4.1 g/dL (3.0-4.8); ALT/SGPT 37 U/L (7-56); AST/SGOT 30 U/L (14-36); BLOOD UREA NITROGEN 9 mg/dL (7-21); GFR NON-AFRICAN AMERICAN > 60
[2018-04-23 13:18] LABS: TROPONIN I < 0.01 ng/mL
[2018-04-23 13:28] LABS: URINE BACTERIA SMALL /hpf
[2018-04-23] MEDS ORDERED: Iohexol 350 MG/100 ML VIAL ONE (14:14)
--- NOTE | 2018-04-23 16:48 | CT ---
Date of service: 04/23/2018 PROCEDURE: CT Chest with contrast (Pulmonary Angiogram) HISTORY: fast heart rate COMPARISON: CT angiogram chest 04/18/2018. TECHNIQUE: Axial computed tomography images were obtained of the chest in the pulmonary arterial phase of enhancement. Coronal and sagittal reformatted images were created and reviewed. Intravenous contrast dose: Omniscan 350, 96 cc Radiation dose: Total exam DLP = 147.14 mGy-cm. This CT exam was performed using one or more of the following dose reduction techniques: Automated exposure control, adjustment of the mA and/or kV according to patient size, and/or use of iterative reconstruction technique. FINDINGS: PULMONARY ARTERIES: Prior filling defect identified at a proximal segmental branch of the right upper lobe pulmonary artery is now either markedly reduced in volume or possibly resolved. No new pulmonary embolus is appreciated bilaterally. Right: Left ventricle ratio appears stable, having not increased visibly the main pulmonary artery caliber is stable at 2.9 cm. AORTA: No acute findings. No thoracic aortic aneurysm. No aortic atherosclerotic calcification or mural plaque present. LUNGS: No interval acute infiltrate bilaterally. Central airways are clear once again. Chest PLEURAL SPACES: Unremarkable. No effusion or pneumothorax. HEART: Unremarkable. No cardiomegaly. No significant pericardial effusion. The thoracic inlet remains unremarkable. LYMPH NODES: No lymphadenopathy. BONES, CHEST WALL: Unremarkable. No fracture or destructive lesion OTHER FINDINGS: Unremarkable. IMPRESSION: No definitive pulmonary embolus identified bilaterally including right upper lobe segmental branch previously shown with filling defect. No interval infiltrate, pleural or pericardial effusion or pneumothorax. No pulmonary vascular congestion.
[2018-04-23 17:40] VITALS: BP 110/59; PULSE 95; RESP 18
--- NOTE | 2018-04-24 09:08 | CARD ---
APPROVED REPORT Date of service: 04/23/2018 EKG Measurement Heart [id number] <Conclusion> Normal sinus rhythm with sinus arrhythmia Normal ECG
== END 2018-04-23 17:54 | disposition home or self-care (01) ==
LOC: ED 11:39
DX: R07.9 Chest pain, unspecified (principal); R00.0 Tachycardia, unspecified; Z86.711 Personal history of pulmonary embolism; Z79.01 Long term (current) use of anticoagulants
CPT/HCPCS: 71275; 80053; 81001; 81025; 82550; 83615; 83735; 84443; 84484; 85025; 85610; 85730; 87086; 93005; 96360; 99284; J7030; Q9967

== ENCOUNTER 2018-04-30 04:04 | Emergency (ER) | payer MEDICAID ==
[2018-04-30 04:04] VITALS: BMI 20.6
[2018-04-30 04:18] VITALS: TEMP 97.8
[2018-04-30] MEDS ORDERED: Sodium Chloride 0.9% 1,000 ML IV STA (04:28)
--- NOTE | 2018-04-30 04:35 | ED PDOC ---
Arrival/HPI - General Chief Complaint: Dizziness/Lightheaded Time Seen by Provider: 04/30/18 04:19 Historian: Patient - History of Present Illness Narrative History of Present Illness (Text): 04/30/18 04:36 37 year old female, whose past medical history includes PE (04/18/18), presents to the emergency department with lightheadedness. Patient states she feels like she will pass out, but denies any syncope. Patient states she is also nauseous, but has not vomited. Patient was admitted for her PE, treated, and discharged with Xarelto. Patient was seen on 04/23/18, for similar symptoms of dizziness and nausea. CTA was performed, and results were negative. Patient saw Dr Mckeon yesterday and mentioned her dizziness, blood work was done and results are pending. Patient reports seeing white upon standing up. Patient denies any headache, vomiting, chest pain, shortness of breath, leg swelling, calf pain, or any other complaints. Time/Duration: Prior to Arrival, < week Symptom Onset: Gradual Symptom Course: Unchanged Activities at Onset: Light Past Medical History - Provider Review Nursing Documentation Reviewed: Yes - Infectious Disease Hx of Infectious Diseases: None - Tetanus Immunization Tetanus Immunization: Unknown - Cardiac Hx Cardiac Disorders: Yes (tachycardia) - Pulmonary Hx Respiratory Disorders: Yes Hx Pulmonary Embolism: Yes - Neurological Hx Neurological Disorder: Yes Hx Migraine: Yes - HEENT Hx HEENT Disorder: No - Renal Hx Renal Disorder: No - Endocrine/Metabolic Hx Endocrine Disorders: No - Hematological/Oncological Hx Blood Disorders: No - Integumentary Hx Dermatological Disorder: No - Musculoskeletal/Rheumatological Hx Musculoskeletal Disorders: No - Gastrointestinal Hx Gastrointestinal Disorders: Yes (hernia repair) - Genitourinary/Gynecological Hx Genitourinary Disorders: Yes Hx Urinary Tract Infection: Yes - Psychiatric Hx Psychophysiologic Disorder: No Hx Substance Use: No - Surgical History Hx Section: Yes Other/Comment: umbilicus herinal repair - Anesthesia Hx Anesthesia: Yes Hx Anesthesia Reactions: No Hx Malignant Hyperthermia: No Family/Social History - Physician Review Nursing Documentation Reviewed: Yes Family/Social History: No Known Family HX Smoking Status: Never Smoked Hx Alcohol Use: No Hx Substance Use: No Allergies/Home Meds Allergies/Adverse Reactions: Allergies ciprofloxacin [From Cipro] Allergy (Verified 04/13/18 16:34) SWELLING metoclopramide [From Reglan] Allergy (Verified 04/13/18 16:34) SWELLING Review of Systems - Physician Review All systems were reviewed & negative as marked: Yes - Review of Systems Respiratory: absent: SOB Cardiovascular: absent: Chest Pain Gastrointestinal: Nausea. absent: Vomiting Musculoskeletal: absent: Other (No leg swelling; No calf pain) Neurological: Dizziness. absent: Headache Physical Exam Vital Signs Reviewed: Yes Vital Signs Temp Pulse Resp BP Pulse Ox 04/30/18 04:15 97.8 F 118 H 18 129/85 99 Temperature: Afebrile Blood Pressure: Normal Pulse: Tachycardic Respiratory Rate: Normal Appearance: Positive for: Well-Appearing, Non-Toxic, Comfortable Pain Distress: None Mental Status: Positive for: Alert and Oriented X 3 - Systems Exam Head: Present: Atraumatic, Normocephalic Pupils: Present: PERRL Extroacular Muscles: Present: EOMI Conjunctiva: Present: Normal Mouth: Present: Moist Mucous Membranes Neck: Present: Normal Range of Motion Respiratory/Chest: Present: Clear to Auscultation, Good Air Exchange. No: Respiratory Distress, Accessory Muscle Use Cardiovascular: Present: Normal S1, S2, Tachycardic. No: Murmurs Abdomen: No: Tenderness, Distention, Peritoneal Signs Back: Present: Normal Inspection Upper Extremity: Present: Normal Inspection. No: Cyanosis, Edema Lower Extremity: Present: Normal Inspection. No: Edema, CALF TENDERNESS Neurological: Present: GCS=15, CN II-XII Intact, Speech Normal Skin: Present: Warm, Dry, Normal Color. No: Rashes Psychiatric: Present: Alert, Oriented x 3, Normal Insight, Normal Concentration Medical Decision Making ED Course and Treatment: 04/30/18 04:45 Impression: 37 year old female presents with dizziness and lightheadedness Plan: -- BMP -- CBC -- Reassess and disposition Prior Visits: Notes and results from previous visits were reviewed. Patient was just admitted for PE recently. After discharge she presented to this ED for similar symptoms of nausea and dizziness. Repeat CTA was done at that time and was negative. Given multiple recent CTA and no shortness of breath, will not re-radiate patient at this time. Progress Notes: 04/30/18 04:17 EKG reviewed by me, shows: Sinus tachycardia @107bpm Normal [place], Normal Intervals No ST elevation EKG similar to previous from 04/23/18 Orthostatics done. Lying- HR 97, BP 122/73. Sitting- HR 100, BP 119/92. Standing- HR 106, BP 129/87. 04/30/18 05:27 Patient re-evaluated after 1L NS bolus, states that she feels better. No syncope while in the ED. Lab results discussed. Advised keeping hydrated, and following up as outpatient. Return to the ED for any new or worsening symptoms. HR 96 at this time. - Medication Orders Current Medication Orders: Sodium Chloride (Sodium Chloride 0.9%) 1,000 mls @ 999 mls/hr IV .Q1H1M STA Stop: 04/30/18 05:28 - Scribe Statement The provider has reviewed the documentation as recorded by the Emilee Gr Provider Scribe Attestation: All medical record entries made by the Scribe were at my direction and personally dictated by me. I have reviewed the chart and agree that the record accurately reflects my personal performance of the history, physical exam, medical decision making, and the department course for this patient. I have also personally directed, reviewed, and agree with the discharge instructions and disposition. Disposition/Present on Arrival - Present on Arrival Any Indicators Present on Arrival: Yes History of DVT/PE: Yes History of Uncontrolled Diabetes: No Urinary Catheter: No History of Decub. Ulcer: No History Surgical Site Infection Following: None - Disposition Have Diagnosis and Disposition been Completed?: Yes Diagnosis: Near syncope Disposition: HOME/ ROUTINE Disposition Time: 05:30 Patient Problems: Current Active Problems Problem Status Onset Near syncope Acute Condition: STABLE Discharge Instructions (ExitCare): Near Fainting (DC) Additional Instructions: JHOAN BOONE, thank you for letting us take care of you today. Your provider was Latoya Gambino MD and you were treated for about to fainted. The emergency medical care you received today was directed at your acute symptoms. If you were prescribed any medication, please fill it and take as directed. It may take several days for your symptoms to resolve. Return to the Emergency Department if your symptoms worsen, do not improve, or if you have any other problems. Please contact your doctor or call one of the physicians/clinics you have been referred to that are listed on the Patient Visit Information form that is included in your discharge packet. Bring any paperwork you were given at discharge with you along with any medications you are taking to your follow up visit. Our treatment cannot replace ongoing medical care by a primary care provider outside of the emergency department. Thank you for allowing the [facility] team to be part of your care today. If you had an X-Ray or CT scan: A Radiologist will review the ED reading if any change in treatment is needed we will contact you. If you had a blood, urine, or wound culture: It will take several days for the results, if any change in treatment is needed we will contact you. If you had an STI test: It will take 48 hours for the results. Please call after 1 week if you have not heard back. Referrals: Chloé Spencer, DO [Primary Care Provider] - Follow up with primary Forms: [employer] (Japanese)
[2018-04-30 04:54] LABS: BLOOD UREA NITROGEN 9 mg/dL (7-21); CALCIUM 9.3 mg/dL (8.4-10.5); GFR NON-AFRICAN AMERICAN > 60
[2018-04-30 05:00] LABS: BASO # 0.03 K/mm3 (0.0-2.0); BASO % 0.5 % (0.0-3.0); EOS # 0.3 (0.0-0.7); GRAN # 3.33 (1.4-6.5); GRAN % 53.1 % (50.0-68.0); HEMOGLOBIN 12.4 g/dL (12.0-16.0); LYMPH % 31.3 % (22.0-35.0); MEAN CELL VOLUME 90.3 fl (80.0-105.0); MEAN CORPUSCULAR HGB CONC 34.3 g/dl (31.0-37.0); MEAN PLATELET VOLUME 10.2 fl (7.0-11.0); MONO # 0.6 (0.1-0.6); MONO % 10.1 % (1.0-6.0); RED CELL DISTRIBUTION WIDTH 12.1 % (11.5-14.5); WHITE BLOOD COUNT 6.3 10^3/uL (4.5-11.0)
[2018-04-30 05:42] VITALS: BP 129/87; PULSE 88; RESP 14; O2SAT 100
--- NOTE | 2018-04-30 13:37 | CARD ---
APPROVED REPORT Date of service: 04/30/2018 EKG Measurement Heart [id number] 130P83 [id number] <Conclusion> Sinus tachycardia Possible Left atrial enlargement Borderline ECG
== END 2018-04-30 05:38 | disposition home or self-care (01) ==
LOC: ED 04:04
DX: R55 Syncope and collapse (principal)
CPT/HCPCS: 80048; 82948; 85025; 93005; 96360; 99285; J7030

== ENCOUNTER 2018-05-14 09:27 | Observation (INO) | payer MEDICAID ==
--- NOTE | 2018-05-14 11:42 | ED PDOC ---
Arrival/HPI - General Chief Complaint: Dizziness/Lightheaded Time Seen by Provider: 05/14/18 09:36 Historian: Patient - History of Present Illness Narrative History of Present Illness (Text): 05/14/18 11:39 37 year old female, with past medical history of PE on Xarelto, presents to the ED for evaluation of near-syncopal episodes for past 2 days. Patient informs intermittent dizziness/lightheadedness, associated with nausea and tachycardia with a sensation of passing out. Patient reports recent dosage changes to Xarelto 3 days ago. Patient denies any other somatic complaints. Patient denies any fevers, chills, headache, chest pain, shortness of breath, dyspnea on exertion, cough, abdominal pain, leg swelling, vomiting, diarrhea, back pain, neck pain, or any other complaints. Bone Process Operator: Dr. Mckeon Time/Duration: < week Symptom Onset: Gradual Symptom Course: Unchanged Activities at Onset: Light Context: Home Past Medical History - Provider Review Nursing Documentation Reviewed: Yes - Infectious Disease Hx of Infectious Diseases: None - Tetanus Immunization Tetanus Immunization: Unknown - Reproductive Currently : Unknown - Cardiac Hx Cardiac Disorders: Yes (tachycardia) - Pulmonary Hx Respiratory Disorders: Yes Hx Pulmonary Embolism: Yes - Neurological Hx Neurological Disorder: Yes Hx Migraine: Yes - HEENT Hx HEENT Disorder: No - Renal Hx Renal Disorder: No - Endocrine/Metabolic Hx Endocrine Disorders: No - Hematological/Oncological Hx Blood Disorders: No - Integumentary Hx Dermatological Disorder: No - Musculoskeletal/Rheumatological Hx Musculoskeletal Disorders: No - Gastrointestinal Hx Gastrointestinal Disorders: Yes (hernia repair) - Genitourinary/Gynecological Hx Genitourinary Disorders: Yes Hx Urinary Tract Infection: Yes - Psychiatric Hx Psychophysiologic Disorder: No Hx Substance Use: No - Surgical History Hx Section: Yes Other/Comment: umbilicus herinal repair - Anesthesia Hx Anesthesia: Yes Hx Anesthesia Reactions: No Hx Malignant Hyperthermia: No Family/Social History - Physician Review Nursing Documentation Reviewed: Yes Family/Social History: No Known Family HX Smoking Status: Never Smoked Hx Alcohol Use: No Hx Substance Use: No Allergies/Home Meds Allergies/Adverse Reactions: Allergies ciprofloxacin [From Cipro] Allergy (Verified 04/13/18 16:34) SWELLING metoclopramide [From Reglan] Allergy (Verified 04/13/18 16:34) SWELLING Review of Systems - Physician Review All systems were reviewed & negative as marked: Yes - Review of Systems Constitutional: absent: Fevers Respiratory: absent: SOB, Cough Cardiovascular: absent: Chest Pain Gastrointestinal: Nausea. absent: Abdominal Pain, Diarrhea, Vomiting Genitourinary Female: absent: Dysuria, Urine Output Changes Musculoskeletal: absent: Back Pain, Neck Pain Skin: absent: Rash Neurological: Dizziness. absent: Headache Psychiatric: absent: Anxiety Physical Exam - Physical Exam Narrative Physical Exam (Text): 05/14/18 11:42 Gen: VS reviewed, alert, well developed, well nourished, nontoxic, mild distress. ENT: normal pharynx. Eye: EOMI, PERRL. Neck: no JVD, supple, no adenopathy. CV: rapid rate, regular rhythm, no rubs, no murmur, no gallops, S1, S2, pulses equal and strong. Pulm: no distress, clear to auscultation, no wheeze, no rhonchi, breath sounds equal, no rales. Abd: soft, nontender, no guarding, no rebound, no rigidity, normal bowel sounds. Ext: no edema. Skin: good color, no rash, no cyanosis. Psych: responds appropriately to questions, normal affect. Neuro: oriented x 3, CN2-12 intact grossly, motor intact, sensation intact. Vital Signs Reviewed: Yes Vital Signs Temp Pulse Resp BP Pulse Ox 05/14/18 09:27 98.1 F 106 H 18 124/80 99 Temperature: Afebrile Blood Pressure: Normal Pulse: Tachycardic Respiratory Rate: Normal Appearance: Positive for: Well-Appearing, Non-Toxic, Comfortable Pain Distress: Mild Mental Status: Positive for: Alert and Oriented X 3 Medical Decision Making ED Course and Treatment: 05/14/18 11:43 Impression: 37 year old female presents to the ED for evaluation of episodes of near-syncope. Plan: -- EKG -- Labs -- Chest X-ray -- Reassess and disposition Prior Visits: Notes and results from previous visits were reviewed. Progress Notes: 05/14/18 15:[address] givens to the hospitalist service. patient to be admitted for persistent near syncope, tachycardia, orthostasis. tele obs. - RAD Interpretation Narrative RAD Interpretations (Text): 05/14/18 17:50 Chest X-ray reviewed by radiologist, shows: IMPRESSION: No acute findings. Yard Laborer: Radiologist - EKG Interpretation EKG Interpretation (Text): 05/14/18 12:44 1210: nsr at 92 bpm, nml qrs, nml axis, no acute sttw abn Interpreted by ED Physician: Yes - Scribe Statement The provider has reviewed the documentation as recorded by the Scribe Elizabeth Nicholas. All medical record entries made by the Scribe were at my direction and personally dictated by me. I have reviewed the chart and agree that the record accurately reflects my personal performance of the history, physical exam, medical decision making, and the department course for this patient. I have also personally directed, reviewed, and agree with the discharge instructions and disposition. Disposition/Present on Arrival - Present on Arrival Any Indicators Present on Arrival: No History of DVT/PE: Yes History of Uncontrolled Diabetes: No Urinary Catheter: No History of Decub. Ulcer: No History Surgical Site Infection Following: None - Disposition Have Diagnosis and Disposition been Completed?: Yes Diagnosis: Near syncope Disposition: HOSPITALIZED Disposition Time: 15:36 Patient Plan: Observation Patient Problems: Current Active Problems Problem Status Onset Near syncope Acute Condition: STABLE
[2018-05-14 12:32] LABS: BASO # 0.02 K/mm3 (0.0-2.0); BASO % 0.3 % (0.0-3.0); EOS # 0.1 (0.0-0.7); EOS % 2.3 % (1.5-5.0); HEMOGLOBIN 12.6 g/dL (12.0-16.0); LYMPH # 1.2 (1.2-3.4); LYMPH % 20.1 % (22.0-35.0); MEAN CELL VOLUME 91.3 fl (80.0-105.0); MEAN CORPUSCULAR HEMOGLOBIN 31.3 pg (25.0-35.0); MEAN CORPUSCULAR HGB CONC 34.2 g/dl (31.0-37.0); MEAN PLATELET VOLUME 9.8 fl (7.0-11.0); MONO # 0.4 (0.1-0.6); MONO % 6.4 % (1.0-6.0); RBC 4.03 10^6/uL (3.5-6.1); RED CELL DISTRIBUTION WIDTH 12.3 % (11.5-14.5); WHITE BLOOD COUNT 6.1 10^3/uL (4.5-11.0)
[2018-05-14 12:40] LABS: INR 1.19; PARTIAL THROMBOPLASTIN TIME 37.9 Seconds (26.9-38.3); PROTHROMBIN TIME 13.5 SECONDS (9.4-12.5)
[2018-05-14 12:45] LABS: ALB/GLOB RATIO 1.4 (1.1-1.8); ALBUMIN 4.2 g/dL (3.0-4.8); ALT/SGPT 14 U/L (7-56); AST/SGOT 23 U/L (14-36); BLOOD UREA NITROGEN 7 mg/dL (7-21); CALCIUM 9.2 mg/dL (8.4-10.5); GFR NON-AFRICAN AMERICAN > 60
[2018-05-14 12:53] LABS: B-TYPE NATRIURETIC PEPTIDE 34.8 pg/mL (0-450); TROPONIN I < 0.01 ng/mL
[2018-05-14] MEDS ORDERED: Sodium Chloride 0.9% 1,000 ML IV STA ×2 (12:53→16:06)
--- NOTE | 2018-05-14 14:15 | RAD ---
Date of service: 05/14/2018 HISTORY: Dyspnea COMPARISON: CTA chest from 04/23/2018 TECHNIQUE: Chest PA and lateral FINDINGS: LINES AND TUBES: None. LUNG AND PLEURA: The lungs are well inflated and clear. No pleural effusion or pneumothorax. HEART AND MEDIASTINUM: The heart is not enlarged. No aortic atherosclerotic calcifications present. The hilar and mediastinal contours are within normal limits. SKELETAL STRUCTURES: The bony structures are within normal limits for the patient's age. VISUALIZED UPPER ABDOMEN: Normal. OTHER FINDINGS: None. IMPRESSION: No acute findings.
[2018-05-14] MEDS ORDERED: Iohexol 240 (50 ml) ONE (16:35)
--- NOTE | 2018-05-14 16:40 | CP.PCM.HP ---
<KrishanZofiaBrandon Gómez - Last Filed: 05/14/18 19:45> History of Present Illness - History of Present Illness History of Present Illness: Brandon Nickerson PGY1, History and Physical for Dr Cody Pt is a 37yo female with a PMH of PE (on eliquis) who presents to the ED complaining of dizziness and lightheadedness for the past three days. Pt states she never experienced LOC and never hit her head. Pt states she vomited about 4 days ago after eating something that did not agree with her. She also states that she has not been eating or drinking very much due to mild nausea. Pt states she has has multiple near-syncopal episodes over the past 3 days. Pt states she has not missed a dose of her Xarelto. Pt states she has been experiencing palpitations, she states her HR was in the 150's. Pt follows with an circular distributor who has given her a personal EKG for her iPhone. Pt is able to take her EKG and email it to Dr Arias. Dr Arias reviewed her EKG and told her to go to the ED, although her EKG was regular rhythm, but the rate was tachycardic. PMH: PE, migraines, recurrent UTI All: ciprofloxacin, reglan PSH: umbilical hernia repair, FH: Father 56 HTN. Mother 54 no health problems SH: Denies tobacco, denies alcohol, denies illicit drugs Home Meds: Xarelto, Vit D PMD: Tonia Plunkett It Generalist: Dr. Derrek Archuleta Aba Therapist: Dr. Eugene Bobbin Collector: Dr. Mckeon Present on Admission - Present on Admission Any Indicators Present on Admission: No Review of Systems - Review of Systems Review of Systems: a 12 point ROS was obtained and added to the HPI where appropriate Past Patient History - Infectious Disease Hx of Infectious Diseases: None - Tetanus Immunizations Tetanus Immunization: Unknown - Past Social History Smoking Status: Never Smoked - CARDIAC Hx Cardiac Disorders: Yes (tachycardia) - PULMONARY Hx Respiratory Disorders: Yes Hx Pulmonary Embolism: Yes - NEUROLOGICAL Hx Neurological Disorder: Yes Hx Migraine: Yes - HEENT Hx HEENT Problems: No - RENAL Hx Chronic Kidney Disease: No - ENDOCRINE/METABOLIC Hx Endocrine Disorders: No - HEMATOLOGICAL/ONCOLOGICAL Hx Blood Disorders: No - INTEGUMENTARY Hx Dermatological Problems: No - MUSCULOSKELETAL/RHEUMATOLOGICAL Hx Musculoskeletal Disorders: No - GASTROINTESTINAL Hx Gastrointestinal Disorders: Yes (hernia repair) - GENITOURINARY/GYNECOLOGICAL Hx Genitourinary Disorders: Yes Hx Urinary Tract Infection: Yes - PSYCHIATRIC Hx Psychophysiologic Disorder: No Hx Substance Use: No - SURGICAL HISTORY Hx Section: Yes Other/Comment: umbilicus herinal repair - ANESTHESIA Hx Anesthesia: Yes Hx Anesthesia Reactions: No Hx Malignant Hyperthermia: No Meds Home Medications: Home Medication List Medication Instructions Recorded Confirmed Type metroNIDAZOLE [Flagyl] 500 mg PO TID #21 tab 05/15/18 Rx Allergies/Adverse Reactions: Allergies Allergy/AdvReac Type Severity Reaction Status Date / Time ciprofloxacin [From Cipro] Allergy SWELLING Verified 04/13/18 16:34 metoclopramide [From Reglan] Allergy SWELLING Verified 04/13/18 16:34 Physical Exam - Constitutional Appears: No Acute Distress - Head Exam Head Exam: ATRAUMATIC, NORMOCEPHALIC - Eye Exam Eye Exam: EOMI - ENT Exam ENT Exam: Mucous Membranes Moist - Neck Exam Neck exam: Positive for: Full Rom - Respiratory Exam Respiratory Exam: Clear to Auscultation Bilateral, NORMAL BREATHING PATTERN. absent: Accessory Muscle Use, Respiratory Distress - Cardiovascular Exam Cardiovascular Exam: Tachycardia, +S1, +S2. absent: Diastolic murmur, Systolic Murmur - GI/Abdominal Exam GI & Abdominal Exam: Normal Bowel Sounds, Soft, Tenderness - Extremities Exam Extremities exam: Positive for: full ROM. Negative for: calf tenderness, pedal edema - Neurological Exam Neurological exam: Alert, Oriented x3 - Psychiatric Exam Psychiatric exam: Normal Affect, Normal Mood - Skin Skin Exam: Dry, Normal Color, Warm Results - Vital Signs Recent Vital Signs: Last Vital Signs Temp 98.1 F 05/14/18 09:27 Pulse 98 H 05/14/18 15:29 Resp 18 05/14/18 15:29 BP 107/78 05/14/18 15:29 Pulse Ox 98 05/14/18 15:29 - Labs Result Diagrams: 05/14/18 12:20 05/14/18 12:20 Labs: Laboratory Results - last 24 hr 05/14/18 05/14/18 05/14/18 12:20 12:20 12:20 WBC 6.1 RBC 4.03 Hgb 12.6 Hct 36.8 MCV 91.3 MCH 31.3 MCHC 34.2 RDW 12.3 Plt Count 238 MPV 9.8 Neut % (Auto) 70.9 H Lymph % (Auto) 20.1 L Falls % (Auto) 6.4 H Eos % (Auto) 2.3 Baso % (Auto) 0.3 Lymph # (Auto) 1.2 Falls # (Auto) 0.4 Eos # (Auto) 0.1 Baso # (Auto) 0.02 Absolute Neuts (auto) 4.35 PT 13.5 H INR 1.19 APTT 37.9 Sodium 140 Potassium 4.0 Chloride 105 Carbon Dioxide 28 Anion Gap 11 BUN 7 Creatinine 0.6 L Est GFR ( Amer) > 60 Est GFR (Non-Af Amer) > 60 Random Glucose 104 Calcium 9.2 Magnesium 2.0 Total Bilirubin 1.0 AST 23 ALT 14 Alkaline Phosphatase 57 Total Creatine Kinase 43 Troponin I < 0.01 NT-Pro-B Natriuret Pep 34.8 Total Protein 7.3 Albumin 4.2 Globulin 3.1 Albumin/Globulin Ratio 1.4 TSH 3rd Generation 05/14/18 12:20 WBC RBC Hgb Hct MCV MCH MCHC RDW Plt Count MPV Neut % (Auto) Lymph % (Auto) Falls % (Auto) Eos % (Auto) Baso % (Auto) Lymph # (Auto) Falls # (Auto) Eos # (Auto) Baso # (Auto) Absolute Neuts (auto) PT INR APTT Sodium Potassium Chloride Carbon Dioxide Anion Gap BUN Creatinine Est GFR ( Amer) Est GFR (Non-Af Amer) Random Glucose Calcium Magnesium Total Bilirubin AST ALT Alkaline Phosphatase Total Creatine Kinase Troponin I NT-Pro-B Natriuret Pep Total Protein Albumin Globulin Albumin/Globulin Ratio TSH 3rd Generation 1.68 Assessment & Plan - Assessment and Plan (Free Text) Assessment: Pt is a 37yo female with a PMH of PE (on eliquis) who presents to the ED complaining of dizziness and lightheadedness for the past three days. Plan: Near Syncope - possible dehydration secondary to poor PO intake vs SVT vs viral vs anxiety - EKG shows NSR, tahcycardia - trop negative - pt given 1L bolus - start NS150 after bolus - UA - [employer] Halpike negative - CTAP PO contrast - will follow up with Dr Arias tomorrow Ppx - pt takes xarelto - HHD Pt seen, examined, assessment and plan discussed with Dr Glo Nickerson PGY1, Internal Medicine Resident - Date & Time Date: 05/14/18 Time: 17:00 <Nia Cody - Last Filed: 05/16/18 17:23> Results - Vital Signs Recent Vital Signs: Last Vital Signs Temp 97.9 F 05/15/18 17:54 Pulse 83 05/15/18 17:54 Resp 18 05/15/18 17:54 BP 102/71 05/15/18 17:54 Pulse Ox 98 05/15/18 06:00 - Labs Result Diagrams: 05/15/18 07:00 05/15/18 07:00 Attending/Attestation - Attestation I have personally seen and examined this patient.: Yes I have fully participated in the care of the patient.: Yes I have reviewed all pertinent clinical information: Yes Notes (Text): 05/16/18 17:18 attending note; Patient seen and examined with resident in the ER. Patient is alert and awake. Denies any chest pain. Tachycardia is improving. Complaining of nausea. Had few episodes of diarrhea. Patient is a 37-year-old female with a PMH of PE on xarelto who presents to the ED complaining of dizziness and lightheadedness for the past three days. 1.Tachycardia; patient has sinus tachycardia with heart rates in 140s. Mostly secondary to dehydration. Tachycardia is improving after IV fluid bolus. History of nausea and diarrhea. Possible acute viral gastroenteritis. CT abdomen and pelvis with by mouth contrast ordered. Poor by mouth intake. Continue IV hydration. 2. history of chronic palpitations and tachycardia; currently monitored by [employer] monitor with circular distributor Dr. Eugene. EKG reviewed by him today. Shows only sinus tachycardia. 3. History of PE; continues xarelto. Patient follows up with Dr. Mckeon as outpatient. 4. Nausea; continue Zofran when necessary. Monitor for diarrhea symptoms. Admit to telemetry and monitored closely. Upon discharge the patient will follow up with PMD Dr. nAdrews. 05/16/18 17:21 05/16/18 17:22 05/16/18 17:23
[2018-05-14] MEDS: Sodium Chloride 0.9% 1,000 ML IV SCH (17:53)
[2018-05-14 18:21] LABS: PH,URINE 6.5 (4.7-8.0); URINE BILIRUBIN NEGATIVE (NEGATIVE); URINE BLOOD NEGATIVE (NEGATIVE); URINE GLUCOSE (UA) NEGATIVE (NEGATIVE); URINE LEUKOCYTE ESTERASE NEGATIVE Leu/uL (NEGATIVE); URINE PROTEIN NEGATIVE mg/dL (<30 mg/dL); URINE UROBILINOGEN 0.2 E.U./dL (<1 E.U./dL)
[2018-05-14 18:22] LABS: URINE APPEARANCE CLEAR (CLEAR); URINE COLOR LIGHT YELLOW (YELLOW)
--- NOTE | 2018-05-14 19:03 | CARD ---
APPROVED REPORT Date of service: 05/14/2018 EKG Measurement Heart [id number] DC 130P80 [id number] <Conclusion> Normal sinus rhythm Low voltage QRS Borderline ECG
[2018-05-14 20:38] VITALS: BMI 20.1
[2018-05-15 00:24] VITALS: RESP 18
[2018-05-15] MEDS: Sodium Chloride 0.9% 1,000 ML IV SCH ×4 (01:35→12:21)
[2018-05-15 06:13] VITALS: O2SAT 98
[2018-05-15 07:07] LABS: BASO # 0.01 K/mm3 (0.0-2.0); BASO % 0.2 % (0.0-3.0); EOS # 0.3 (0.0-0.7); EOS % 5.5 % (1.5-5.0); LYMPH # 1.4 (1.2-3.4); LYMPH % 28.3 % (22.0-35.0); MEAN CORPUSCULAR HEMOGLOBIN 30.8 pg (25.0-35.0); MEAN CORPUSCULAR HGB CONC 33.1 g/dl (31.0-37.0); MEAN PLATELET VOLUME 9.9 fl (7.0-11.0); MONO # 0.4 (0.1-0.6); MONO % 8.3 % (1.0-6.0); RBC 3.44 10^6/uL (3.5-6.1); RED CELL DISTRIBUTION WIDTH 12.4 % (11.5-14.5); WHITE BLOOD COUNT 4.9 10^3/uL (4.5-11.0)
[2018-05-15 07:19] LABS: HEMOGLOBIN 10.6 g/dL (12.0-16.0)
[2018-05-15 07:28] LABS: ALB/GLOB RATIO 1.2 (1.1-1.8); ALT/SGPT 14 U/L (7-56); AST/SGOT 17 U/L (14-36); BLOOD UREA NITROGEN 5 mg/dL (7-21); CALCIUM 7.9 mg/dL (8.4-10.5); GFR NON-AFRICAN AMERICAN > 60
--- NOTE | 2018-05-15 09:38 | CT ---
Date of service: 05/14/2018 PROCEDURE: CT Abdomen and Pelvis with contrast HISTORY: Nausea, dizziness abdominal pain. Negative test (concurrent with this examination). COMPARISON: None. TECHNIQUE: Oral contrast only. Radiation dose: Total exam DLP = <inf_radiation_dlp> mGy-cm. This CT exam was performed using one or more of the following dose reduction techniques: Automated exposure control, adjustment of the mA and/or kV according to patient size, and/or use of iterative reconstruction technique. FINDINGS: LOWER THORAX: Unremarkable. LIVER: Unremarkable. No gross lesion or ductal dilatation. GALLBLADDER AND BILE DUCTS: Unremarkable. PANCREAS: Unremarkable. No gross lesion or ductal dilatation. SPLEEN: Unremarkable. ADRENALS: Unremarkable. No mass. KIDNEYS AND URETERS: Unremarkable. No hydronephrosis. No solid mass. VASCULATURE: Unremarkable. No aortic aneurysm. No atherosclerotic calcification or mural plaque present. BOWEL: Diffuse enteritis. No evidence of obstruction. Unremarkable colon. APPENDIX: A normal appendix is visualized in it's entirety. PERITONEUM: Unremarkable. No free fluid. No free air. LYMPH NODES: Unremarkable. No enlarged lymph nodes. BLADDER: Unremarkable. REPRODUCTIVE: Unremarkable. BONES: No acute fracture. OTHER FINDINGS: None. IMPRESSION: Diffuse, mild enteritis. Concordant findings (preliminary report) provided by [facility].
[2018-05-15] MEDS ORDERED: metroNIDAZOLE IV 500 mg/100 ml 500 MG/100 ML BAG IVPB STA (12:43)
--- NOTE | 2018-05-15 16:56 | CARD ---
APPROVED REPORT Date of service: 05/15/2018 EKG Measurement Heart [id number] <Conclusion> Normal sinus rhythm with sinus arrhythmia Low voltage QRS Borderline ECG
--- NOTE | 2018-05-15 17:50 | CP.PCM.DIS ---
<Brandon Nickerson - Last Filed: 05/15/18 17:57> Provider - Provider Date of Admission: 05/14/18 15:37 Attending physician: Nia Cody MD Primary care physician: Bertha Plunkett MD Time Spent in preparation of Discharge (in minutes): 45 Diagnosis - Discharge Diagnosis (1) Near syncope Status: Acute Priority: High (2) Tachycardia Status: Chronic Priority: High (3) History of pulmonary embolism Status: Chronic Priority: High (4) Viral gastroenteritis Status: Acute Priority: High Hospital Course - Lab Results Lab Results: Most Recent Lab Values WBC 4.9 10^3/uL (4.5-11.0) 05/15/18 07:00 RBC 3.44 10^6/uL (3.5-6.1) L 05/15/18 07:00 Hgb 10.6 g/dL (12.0-16.0) L D 05/15/18 07:00 Hct 32.0 % (36.0-48.0) L 05/15/18 07:00 MCV 93.0 fl (80.0-105.0) 05/15/18 07:00 MCH 30.8 pg (25.0-35.0) 05/15/18 07:00 MCHC 33.1 g/dl (31.0-37.0) 05/15/18 07:00 RDW 12.4 % (11.5-14.5) 05/15/18 07:00 Plt Count 201 10^3/uL (120.0-450.0) 05/15/18 07:00 MPV 9.9 fl (7.0-11.0) 05/15/18 07:00 Neut % (Auto) 57.7 % (50.0-68.0) 05/15/18 07:00 Lymph % (Auto) 28.3 % (22.0-35.0) 05/15/18 07:00 Josephine % (Auto) 8.3 % (1.0-6.0) H 05/15/18 07:00 Eos % (Auto) 5.5 % (1.5-5.0) H 05/15/18 07:00 Baso % (Auto) 0.2 % (0.0-3.0) 05/15/18 07:00 Lymph # (Auto) 1.4 (1.2-3.4) 05/15/18 07:00 Josephine # (Auto) 0.4 (0.1-0.6) 05/15/18 07:00 Eos # (Auto) 0.3 (0.0-0.7) 05/15/18 07:00 Baso # (Auto) 0.01 K/mm3 (0.0-2.0) 05/15/18 07:00 Absolute Neuts (auto) 2.84 (1.4-6.5) 05/15/18 07:00 PT 13.5 SECONDS (9.4-12.5) H 05/14/18 12:20 INR 1.19 05/14/18 12:20 APTT 37.9 Seconds (26.9-38.3) 05/14/18 12:20 Sodium 140 mmol/L (132-148) 05/15/18 07:00 Potassium 4.1 mmol/L (3.6-5.0) 05/15/18 07:00 Chloride 111 mmol/L (98-107) H 05/15/18 07:00 Carbon Dioxide 26 mmol/L (21-33) 05/15/18 07:00 Anion Gap 7 (10-20) L 05/15/18 07:00 BUN 5 mg/dL (7-21) L 05/15/18 07:00 Creatinine 0.5 mg/dl (0.7-1.2) L 05/15/18 07:00 Est GFR ( Amer) > 60 05/15/18 07:00 Est GFR (Non-Af Amer) > 60 05/15/18 07:00 Random Glucose 87 mg/dL (70-110) 05/15/18 07:00 Calcium 7.9 mg/dL (8.4-10.5) L 05/15/18 07:00 Phosphorus 3.3 mg/dL (2.5-4.5) 05/15/18 07:00 Magnesium 1.9 mg/dL (1.7-2.2) 05/15/18 07:00 Total Bilirubin 1.5 mg/dL (0.2-1.3) H 05/15/18 07:00 AST 17 U/L (14-36) 05/15/18 07:00 ALT 14 U/L (7-56) 05/15/18 07:00 Alkaline Phosphatase 43 U/L (38-126) 05/15/18 07:00 Total Creatine Kinase 43 U/L (35-230) 05/14/18 12:20 Troponin I < 0.01 ng/mL 05/14/18 12:20 NT-Pro-B Natriuret Pep 34.8 pg/mL (0-450) 05/14/18 12:20 Total Protein 5.6 g/dL (5.8-8.3) L 05/15/18 07:00 Albumin 3.0 g/dL (3.0-4.8) 05/15/18 07:00 Globulin 2.5 gm/dL 05/15/18 07:00 Albumin/Globulin Ratio 1.2 (1.1-1.8) 05/15/18 07:00 TSH 3rd Generation 1.68 mIU/mL (0.46-4.68) 05/14/18 12:20 Urine Color Light yellow (YELLOW) 05/14/18 18:14 Urine Appearance Clear (CLEAR) 05/14/18 18:14 Urine pH 6.5 (4.7-8.0) 05/14/18 18:14 Ur Specific Line [place] 1.015 (1.005-1.035) 05/14/18 18:14 Urine Protein Negative mg/dL (<30 mg/dL) 05/14/18 18:14 Urine Glucose (UA) Negative mg/dL (NEGATIVE) 05/14/18 18:14 Urine Ketones Negative mg/dL (NEGATIVE) 05/14/18 18:14 Urine Blood Negative (NEGATIVE) 05/14/18 18:14 Urine Nitrate Negative (NEGATIVE) 05/14/18 18:14 Urine Bilirubin Negative (NEGATIVE) 05/14/18 18:14 Urine Urobilinogen 0.2 E.U./dL (<1 E.U./dL) 05/14/18 18:14 Ur Leukocyte Esterase Negative Ashley/uL (NEGATIVE) 05/14/18 18:14 - Hospital Course Hospital Course: Hospitalization Pt is a 37yo female with a PMH of PE (on eliquis) who presents to the ED complaining of dizziness and lightheadedness for the past three days. Pt states she has been experiencing palpitations, she states her HR was in the 150's. Pt follows with an feed mixer who has given her a personal EKG for her iPhone. Pt is able to take her EKG and email it to Dr Arias. Dr Arias reviewed her EKG and told her to go to the ED, although her EKG was regular rhythm, but the rate was tachycardic. She also states that she has not been eating or drinking very much due to mild nausea. Pt states she has has multiple near- syncopal episodes over the past 3 days. Pt states she has not missed a dose of her Xarelto. Pt states she never experienced LOC and never hit her head. Pt states she vomited about 4 days ago after eating something that did not agree with her. Etiology was possible dehydration secondary to poor PO intake vs SVT vs viral vs anxiety. EKG shows NSR, tahcycardia. Troponin were negative. Pt given 1L bolus and started on NS150 after bolus. Florencio Halpike negative. CTAP PO contrast shows diffuse mild enteritis. Discharge Please follow up with primary care physician, Dr. Tonia Plunkett within the next 3-5 days. Please follow up with lab pack chemist, Dr. Eugene in the next 1 week. Please follow up with Heme/ Onc, Dr Mckeon physician within the next 1 week. Please continue to take your Xarelto as directed. Prescription for Flagyl, an antibiotic, for 1 week. - Date & Time of H&P Date of H&P: 05/15/18 Time of H&P: 06:00 Discharge Exam - Head Exam Head Exam: ATRAUMATIC, NORMOCEPHALIC - Eye Exam Eye Exam: EOMI - ENT Exam ENT Exam: Mucous Membranes Moist - Neck Exam Neck exam: Full Rom - Respiratory Exam Respiratory Exam: NORMAL BREATHING PATTERN. absent: Accessory Muscle Use, Wheezes - Cardiovascular Exam Cardiovascular Exam: RRR, +S1, +S2. absent: Diastolic murmur, Systolic Murmur - GI/Abdominal Exam GI & Abdominal Exam: Normal Bowel Sounds, Unremarkable - Extremities Exam Extremities exam: pedal pulses present - Neurological Exam Neurological exam: Alert, Oriented x3 - Psychiatric Exam Psychiatric exam: Normal Affect, Normal Mood - Skin Skin Exam: Dry, Warm Discharge Plan - Discharge Medications Prescriptions: metroNIDAZOLE [Flagyl] 500 mg PO TID #21 tab - Follow Up Plan Condition: STABLE Disposition: HOME/ ROUTINE Instructions: Tachycardia, Syncope (Fainting) (DC) Additional Instructions: 1. Please follow up with your primary care physician, Dr. Tonia Plunkett within the next 3-5 days 2. Please follow up with your lab pack chemist, Dr. Eugene in the next 1 week 3. Please follow up with your Heme/ Onc, Dr Mckeon physician within the next 1 week. 4. Please continue to take your Xarelto as directed 5. You have been given a prescription for Flagyl, an antibiotic, for 1 week. Please fill and take only as directed. Please finish the entire course. 6. If your symptoms return or worsen, go to the nearest emergency department Referrals: Bertha Plunkett MD [Primary Care Provider] - Derrek Archuleta MD [Medical Doctor] - Jerel Mckeon MD [Staff Provider] - <Nia Cody - Last Filed: 05/16/18 17:25> Provider - Provider Date of Admission: 05/14/18 15:37 Attending physician: Nia Cody MD Primary care physician: Bertha Plunkett MD Hospital Course - Lab Results Lab Results: Micro Results 05/15/18 15:09 Stool C. difficile Antigen & Toxins A,B - Final Most Recent Lab Values WBC 4.9 10^3/uL (4.5-11.0) 05/15/18 07:00 RBC 3.44 10^6/uL (3.5-6.1) L 05/15/18 07:00 Hgb 10.6 g/dL (12.0-16.0) L D 05/15/18 07:00 Hct 32.0 % (36.0-48.0) L 05/15/18 07:00 MCV 93.0 fl (80.0-105.0) 05/15/18 07:00 MCH 30.8 pg (25.0-35.0) 05/15/18 07:00 MCHC 33.1 g/dl (31.0-37.0) 05/15/18 07:00 RDW 12.4 % (11.5-14.5) 05/15/18 07:00 Plt Count 201 10^3/uL (120.0-450.0) 05/15/18 07:00 MPV 9.9 fl (7.0-11.0) 05/15/18 07:00 Neut % (Auto) 57.7 % (50.0-68.0) 05/15/18 07:00 Lymph % (Auto) 28.3 % (22.0-35.0) 05/15/18 07:00 Josephine % (Auto) 8.3 % (1.0-6.0) H 05/15/18 07:00 Eos % (Auto) 5.5 % (1.5-5.0) H 05/15/18 07:00 Baso % (Auto) 0.2 % (0.0-3.0) 05/15/18 07:00 Lymph # (Auto) 1.4 (1.2-3.4) 05/15/18 07:00 Josephine # (Auto) 0.4 (0.1-0.6) 05/15/18 07:00 Eos # (Auto) 0.3 (0.0-0.7) 05/15/18 07:00 Baso # (Auto) 0.01 K/mm3 (0.0-2.0) 05/15/18 07:00 Absolute Neuts (auto) 2.84 (1.4-6.5) 05/15/18 07:00 PT 13.5 SECONDS (9.4-12.5) H 05/14/18 12:20 INR 1.19 05/14/18 12:20 APTT 37.9 Seconds (26.9-38.3) 05/14/18 12:20 Sodium 140 mmol/L (132-148) 05/15/18 07:00 Potassium 4.1 mmol/L (3.6-5.0) 05/15/18 07:00 Chloride 111 mmol/L (98-107) H 05/15/18 07:00 Carbon Dioxide 26 mmol/L (21-33) 05/15/18 07:00 Anion Gap 7 (10-20) L 05/15/18 07:00 BUN 5 mg/dL (7-21) L 05/15/18 07:00 Creatinine 0.5 mg/dl (0.7-1.2) L 05/15/18 07:00 Est GFR ( Amer) > 60 05/15/18 07:00 Est GFR (Non-Af Amer) > 60 05/15/18 07:00 Random Glucose 87 mg/dL (70-110) 05/15/18 07:00 Calcium 7.9 mg/dL (8.4-10.5) L 05/15/18 07:00 Phosphorus 3.3 mg/dL (2.5-4.5) 05/15/18 07:00 Magnesium 1.9 mg/dL (1.7-2.2) 05/15/18 07:00 Total Bilirubin 1.5 mg/dL (0.2-1.3) H 05/15/18 07:00 AST 17 U/L (14-36) 05/15/18 07:00 ALT 14 U/L (7-56) 05/15/18 07:00 Alkaline Phosphatase 43 U/L (38-126) 05/15/18 07:00 Total Creatine Kinase 43 U/L (35-230) 05/14/18 12:20 Troponin I < 0.01 ng/mL 05/14/18 12:20 NT-Pro-B Natriuret Pep 34.8 pg/mL (0-450) 05/14/18 12:20 Total Protein 5.6 g/dL (5.8-8.3) L 05/15/18 07:00 Albumin 3.0 g/dL (3.0-4.8) 05/15/18 07:00 Globulin 2.5 gm/dL 05/15/18 07:00 Albumin/Globulin Ratio 1.2 (1.1-1.8) 05/15/18 07:00 TSH 3rd Generation 1.68 mIU/mL (0.46-4.68) 05/14/18 12:20 Urine Color Light yellow (YELLOW) 05/14/18 18:14 Urine Appearance Clear (CLEAR) 05/14/18 18:14 Urine pH 6.5 (4.7-8.0) 05/14/18 18:14 Ur Specific Line [place] 1.015 (1.005-1.035) 05/14/18 18:14 Urine Protein Negative mg/dL (<30 mg/dL) 05/14/18 18:14 Urine Glucose (UA) Negative mg/dL (NEGATIVE) 05/14/18 18:14 Urine Ketones Negative mg/dL (NEGATIVE) 05/14/18 18:14 Urine Blood Negative (NEGATIVE) 05/14/18 18:14 Urine Nitrate Negative (NEGATIVE) 05/14/18 18:14 Urine Bilirubin Negative (NEGATIVE) 05/14/18 18:14 Urine Urobilinogen 0.2 E.U./dL (<1 E.U./dL) 05/14/18 18:14 Ur Leukocyte Esterase Negative Ashley/uL (NEGATIVE) 05/14/18 18:14 Attending/Attestation - Attestation I have personally seen and examined this patient.: Yes I have fully participated in the care of the patient.: Yes I have reviewed all pertinent clinical information, including history, physical exam and plan: Yes Notes (Text): 05/16/18 17:23 attending note; Patient seen and examined with resident. Patient is alert and awake. Denies any chest pain. Tachycardia improved. tolerating diet. had one episode of loose stool this morning. Patient is a 37-year-old female with a PMH of PE on xarelto who presents to the ED complaining of dizziness and lightheadedness for the past three days. 1.Tachycardia; resolved after IV hydration. Diarrhea is improving. Possible acute viral gastroenteritis. CT abdomen and pelvis with by mouth contrast she showed acute enteritis. Stool for C. difficile ordered. currently tolerating liquid diet. Advance as tolerated. 2. history of chronic palpitations and tachycardia; currently monitored by [facility] ? [facility] monitor with feed mixer Dr. Eugene. EKG reviewed by him yesterday. currently in normal sinus rhythm. 3. History of PE; continues xarelto. Patient follows up with Dr. Mckeon as outpatient. patient will be discharged home today with cup with PMD/feed mixer and hematology. Admit to telemetry and monitored closely. Upon discharge the patient will follow up with PMD Dr. Andrews.
[2018-05-15 17:54] VITALS: BP 102/71; PULSE 83; TEMP 97.9
== END 2018-05-15 22:15 | disposition home or self-care (01) ==
LOC: ED 09:27 → ERH 15:37 → 2RNO 18:25
PROVIDERS: ADMIT Internal Medicine; ATTEND Internal Medicine
DX: R55 Syncope and collapse (principal); R00.0 Tachycardia, unspecified; A08.4 Viral intestinal infection, unspecified; Z86.711 Personal history of pulmonary embolism; Z79.01 Long term (current) use of anticoagulants; Z87.440 Personal history of urinary (tract) infections
CPT/HCPCS: 36415; 71046; 74176; 80053; 81003; 81025; 82550; 83735; 83880; 84100; 84443; 84484; 85025; 85610; 85730; 87045; 87324; 93005; 96365; 99285; G0378; J7030; Q9966

== ENCOUNTER 2018-05-23 10:18 | Emergency (ER) | payer MEDICAID ==
[2018-05-23 10:19] VITALS: BMI 20.1
[2018-05-23 10:41] VITALS: RESP 18
--- NOTE | 2018-05-23 10:51 | ED PDOC ---
Arrival/HPI - General Chief Complaint: Weakness/Neurological Deficit Time Seen by Provider: 05/23/18 10:34 Historian: Patient - History of Present Illness Narrative History of Present Illness (Text): 05/23/18 10:46 A 37 year old female, whose past medical history includes PE on xarelto and migraines, presents to the emergency department complaining of right sided face numbness and right sided pressure to head since yesterday. Patient reports yesterday she felt the right side of her brain vibrating and right sided numbness to her face the lasted 2-3 minutes. Patient notes this morning the vibrations occurred again and stated the sensation woke her from rest. Patient also notes she had a CT scan done by Dr. Mckeon last week in her last visit due to her blurry vision and states results were normal. Patient states she is not taking any current medications. Patient notes her migraines usually have symptoms of facial numbness and the difference this time is the right sided pressure. Patient denies any headache, dizziness, or any other complaints. PMD: Bertha Suarez Time/Duration: Other (few days) Symptom Onset: Gradual Symptom Course: Unchanged Activities at Onset: Light Context: Home Past Medical History - Infectious Disease Hx of Infectious Diseases: None - Tetanus Immunization Tetanus Immunization: Unknown - Reproductive Currently : No - Cardiac Hx Cardiac Disorders: Yes (tachycardia) Other/Comment: PE - Pulmonary Hx Respiratory Disorders: Yes - Neurological Hx Neurological Disorder: Yes Hx Migraine: Yes - HEENT Hx HEENT Disorder: Yes (wears glasses) - Renal Hx Renal Disorder: No - Endocrine/Metabolic Hx Endocrine Disorders: No - Hematological/Oncological Hx Blood Disorders: No - Integumentary Hx Dermatological Disorder: No - Musculoskeletal/Rheumatological Hx Musculoskeletal Disorders: No Hx Falls: No Hx Unsteady Gait: No - Gastrointestinal Hx Gastrointestinal Disorders: Yes (hernia repair) - Genitourinary/Gynecological Hx Genitourinary Disorders: Yes Hx Urinary Tract Infection: Yes - Psychiatric Hx Psychophysiologic Disorder: No Hx Substance Use: No - Surgical History Other/Comment: umbilicus herinal repair - Anesthesia Hx Anesthesia: Yes Hx Anesthesia Reactions: No Hx Malignant Hyperthermia: No Family/Social History Family/Social History: No Known Family HX Smoking Status: Never Smoked Hx Alcohol Use: No Hx Substance Use: No Allergies/Home Meds Allergies/Adverse Reactions: Allergies ciprofloxacin [From Cipro] Allergy (Verified 04/13/18 16:34) SWELLING metoclopramide [From Reglan] Allergy (Verified 04/13/18 16:34) SWELLING Home Medications: Home Meds Medication Instructions Recorded Confirmed Rivaroxaban [Xarelto] 20 mg PO DAILY 05/14/18 05/14/18 Review of Systems - Physician Review All systems were reviewed & negative as marked: Yes - Review of Systems Neurological: Other (right sided facial numbness and right sided pressure of the head). absent: Headache, Dizziness Physical Exam Vital Signs Reviewed: Yes Vital Signs Temp Pulse Resp BP Pulse Ox 05/23/18 10:19 97.6 F 102 H 18 114/79 98 Temperature: Afebrile Blood Pressure: Normal Pulse: Tachycardic Respiratory Rate: Normal Appearance: Positive for: Well-Appearing, Non-Toxic Mental Status: Positive for: Alert and Oriented X 3 - Systems Exam Head: Present: Atraumatic, Normocephalic Pupils: Present: PERRL Extroacular Muscles: Present: EOMI Conjunctiva: Present: Normal Mouth: Present: Moist Mucous Membranes Neck: Present: Normal Range of Motion. No: Paraspinal Tenderness, Lymphadenopathy, Bruit Respiratory/Chest: Present: Clear to Auscultation, Good Air Exchange. No: Respiratory Distress, Accessory Muscle Use Cardiovascular: Present: Regular Rate and Rhythm, Normal S1, S2. No: Murmurs Abdomen: No: Tenderness, Distention, Peritoneal Signs Back: Present: Normal Inspection Upper Extremity: Present: Normal Inspection. No: Cyanosis, Edema Lower Extremity: Present: Normal Inspection. No: Edema Neurological: Present: GCS=15, CN II-XII Intact, Speech Normal Skin: Present: Warm, Dry, Normal Color. No: Rashes Psychiatric: Present: Alert, Oriented x 3, Normal Insight, Normal Concentration Medical Decision Making ED Course and Treatment: 05/23/18 10:46 Impression: 37 year old female presenting to the emergency room complaining of right sided face numbness and right sided pressure to head. Differential Diagnosis included but are not limited to: anxiety vs. migraine vs. intracranial bleed Plan: -- Head CT without contrast -- Tylenol -- Reassess and disposition Prior Visits: Notes and results from previous visits were reviewed. Progress Notes: 05/23/18 13:59 Procedure: Head CT without contrast Dictator: Edward Ken MD Impression: No acute intrcranial hemorrhage. 05/24/18 14:34 Patient was feeling better with no longer having symptoms. Her symptoms appeared similar to her previous migraines. Her CT results were reviewed with patient. She feels comfortable going home with followup. She's got PMD f/u and will make sure to followup and return to the ED if symptoms worsen or any other concern. - RAD Interpretation Radiology Orders: 05/23/18 10:45 HEAD W/O CONTRAST [CT] Stat - Medication Orders Current Medication Orders: Discontinued Medications Acetaminophen (Tylenol 325mg Tab) 975 mg PO STAT STA Stop: 05/23/18 10:46 - Scribe Statement The provider has reviewed the documentation as recorded by the Scribe Rosana Marquez All medical record entries made by the Scribe were at my direction and personally dictated by me. I have reviewed the chart and agree that the record accurately reflects my personal performance of the history, physical exam, medical decision making, and the department course for this patient. I have also personally directed, reviewed, and agree with the discharge instructions and disposition. Disposition/Present on Arrival - Present on Arrival Any Indicators Present on Arrival: Yes History of DVT/PE: Yes History of Uncontrolled Diabetes: No Urinary Catheter: No History of Decub. Ulcer: No History Surgical Site Infection Following: None - Disposition Have Diagnosis and Disposition been Completed?: Yes Diagnosis: Migraine Disposition: HOME/ ROUTINE Disposition Time: 14:34 Patient Plan: Discharge Condition: GOOD Discharge Instructions (ExitCare): Migraine Headaches in Adults Additional Instructions: JHOAN MARQUEZ, thank you for letting us take care of you today. Your provider was Nick Vidal DO and you were treated for Migraine. The emergency medical care you received today was directed at your acute symptoms. If you were prescribed any medication, please fill it and take as directed. It may take several days for your symptoms to resolve. Return to the Emergency Department if your symptoms worsen, do not improve, or if you have any other problems. Please contact your doctor or call one of the physicians/clinics you have been referred to that are listed on the Patient Visit Information form that is included in your discharge packet. Bring any paperwork you were given at discharge with you along with any medications you are taking to your follow up visit. Our treatment cannot replace ongoing medical care by a primary care provider outside of the emergency department. Thank you for allowing the [facility] team to be part of your care today. If you had an X-Ray or CT scan: A Radiologist will review the ED reading if any change in treatment is needed we will contact you. If you had a blood, urine, or wound culture: It will take several days for the results, if any change in treatment is needed we will contact you. If you had an STI test: It will take 48 hours for the results. Please call after 1 week if you have not heard back. Referrals: Bertha Plunkett MD [Family Provider] - Follow up with primary Forms: [employer] (Turkmen), WORK NOTE
--- NOTE | 2018-05-23 13:55 | CT ---
Date of service: 05/23/2018 PROCEDURE: CT HEAD WITHOUT CONTRAST. HISTORY: Right-sided facial numbness COMPARISON: Comparison made with CT scan 04/19/2018. TECHNIQUE: Axial computed tomography images were obtained through the head/brain without intravenous contrast. Radiation dose: Total exam DLP = 1039.27 mGy-cm. This CT exam was performed using one or more of the following dose reduction techniques: Automated exposure control, adjustment of the mA and/or kV according to patient size, and/or use of iterative reconstruction technique. FINDINGS: HEMORRHAGE: No parenchymal, subarachnoid or extra-axial hemorrhage. BRAIN: No mass effect or edema. No atrophy or chronic microvascular ischemic changes. VENTRICLES: No obstructive hydrocephalus. CALVARIUM: Unremarkable. PARANASAL SINUSES: Unremarkable as visualized. No significant inflammatory changes. MASTOID AIR CELLS: Unremarkable as visualized. No inflammatory changes. OTHER FINDINGS: None. IMPRESSION: No acute intracranial hemorrhage.
[2018-05-23 14:43] VITALS: PULSE 92
[2018-05-23 14:47] VITALS: BP 103/71; TEMP 98.2; O2SAT 99
== END 2018-05-23 14:47 | disposition home or self-care (01) ==
LOC: ED 10:18
DX: G43.909 Migraine, unspecified, not intractable, without status migrainosus (principal)

== ENCOUNTER 2018-06-08 08:06 | Emergency (ER) | payer MEDICAID ==
[2018-06-08 08:16] VITALS: RESP 18; TEMP 97.5; O2SAT 98
--- NOTE | 2018-06-08 08:37 | ED PDOC ---
Arrival/HPI - General Chief Complaint: Weakness/Neurological Deficit Time Seen by Provider: 06/08/18 08:23 Historian: Patient - History of Present Illness Narrative History of Present Illness (Text): 06/08/18 08:37 37 year old female, with past medical history of PE on Xarelto and migraines, presents to the ED for evaluation of jerking movements upon waking up from sleep for past 3 days. Patient states she has been falling asleep and waking up with jerking movements for past 3 days associated with generalized head and upper arm numbness. Patient informs similar episode in April when she experienced near- syncope symptoms associated with headache and jerking movements, and reports having CT of head performed at the time with no significant findings. Patient reports she was recently made aware of Vitamin D deficiency and was started on Vitamin D by Dr. Mckeon. Patient currently appears anxious but denies any other somatic complaints. Patient denies any fever, chills , nausea, vomiting, chest pain, shortness of breath, or any other complaints. Patient denies any smoking or illicit drug use. Time/Duration: < week Symptom Onset: Gradual Symptom Course: Unchanged Context: Home Associated Symptoms (Text): 06/08/18 09:30 Patient complains of a 3-day history of falling asleep and waking up with jerking movements. She also has generalized numbness about her head and bilateral upper extremities. No weakness. No headache. No dizziness or lightheadedness. No injury or trauma. No neck pain. She appears extremely anxious and nervous. No apparent seizure activity. She had a similar episode last month and was seen in the emergency department and had a normal CT scan of the head at that time. Past Medical History - Provider Review Nursing Documentation Reviewed: Yes - Infectious Disease Hx of Infectious Diseases: None - Tetanus Immunization Tetanus Immunization: Unknown - Cardiac Hx Cardiac Disorders: Yes (tachycardia) Other/Comment: PE - Pulmonary Hx Respiratory Disorders: Yes Hx Pulmonary Embolism: Yes - Neurological Hx Neurological Disorder: Yes Hx Migraine: Yes - HEENT Hx HEENT Disorder: Yes (wears glasses) - Renal Hx Renal Disorder: No - Endocrine/Metabolic Hx Endocrine Disorders: No - Hematological/Oncological Hx Blood Disorders: No - Integumentary Hx Dermatological Disorder: No - Musculoskeletal/Rheumatological Hx Musculoskeletal Disorders: No Hx Falls: No Hx Unsteady Gait: No - Gastrointestinal Hx Gastrointestinal Disorders: Yes (hernia repair) - Genitourinary/Gynecological Hx Genitourinary Disorders: Yes Hx Urinary Tract Infection: Yes - Psychiatric Hx Psychophysiologic Disorder: No Hx Substance Use: No - Surgical History Other/Comment: umbilicus hernia repair - Anesthesia Hx Anesthesia: Yes Hx Anesthesia Reactions: No Hx Malignant Hyperthermia: No Family/Social History - Physician Review Nursing Documentation Reviewed: Yes Family/Social History: Unknown Family HX Smoking Status: Never Smoked Hx Alcohol Use: No Hx Substance Use: No Allergies/Home Meds Allergies/Adverse Reactions: Allergies ciprofloxacin [From Cipro] Allergy (Verified 04/13/18 16:34) SWELLING metoclopramide [From Reglan] Allergy (Verified 04/13/18 16:34) SWELLING Home Medications: Home Meds Medication Instructions Recorded Confirmed Rivaroxaban [Xarelto] 20 mg PO DAILY 05/14/18 06/08/18 Ergocalciferol [Drisdol 50,000 1 cap PO TUE 06/08/18 06/08/18 Intl Units Cap] Review of Systems - Physician Review All systems were reviewed & negative as marked: Yes - Review of Systems Constitutional: Other (Generalized jerking movements). absent: Fatigue, Fevers Respiratory: absent: SOB, Cough Cardiovascular: absent: Chest Pain, Palpitations, Syncope Gastrointestinal: absent: Abdominal Pain, Diarrhea, Nausea, Vomiting Genitourinary Female: absent: Dysuria, Urine Output Changes Musculoskeletal: Other (Upper arm weakness). absent: Back Pain, Neck Pain Skin: absent: Rash Neurological: absent: Headache, Dizziness, Focal Weakness, Gait Changes, Speech Changes, Facial Droop, Disequilibrium, Seizure Psychiatric: Anxiety. absent: Depression, Suicidal Ideation Physical Exam Vital Signs Reviewed: Yes Vital Signs Temp Pulse Resp BP Pulse Ox 06/08/18 08:16 97.5 F L 104 H 18 115/79 98 Temperature: Afebrile Blood Pressure: Normal Pulse: Tachycardic Respiratory Rate: Normal Appearance: Positive for: Other (Anxious appearing) Pain Distress: None Mental Status: Positive for: Alert and Oriented X 3 - Systems Exam Head: Present: Atraumatic, Normocephalic Pupils: Present: PERRL Extroacular Muscles: Present: EOMI Conjunctiva: Present: Normal Ears: Present: NORMAL TM, Normal Canal. No: Erythema, TM Bulging Mouth: Present: Moist Mucous Membranes Pharnyx: No: ERYTHEMA, EXUDATE, TONSILS ENLARGED Neck: Present: Normal Range of Motion. No: MIDLINE TENDERNESS, Paraspinal Tenderness Respiratory/Chest: Present: Clear to Auscultation, Good Air Exchange. No: Respiratory Distress, Accessory Muscle Use Cardiovascular: Present: Regular Rate and Rhythm, Normal S1, S2. No: Murmurs Abdomen: No: Tenderness, Distention, Peritoneal Signs Back: Present: Normal Inspection Upper Extremity: Present: Normal Inspection, Neurovascularly Intact. No: Cyanosis, Edema Lower Extremity: Present: Normal Inspection. No: Edema Neurological: Present: GCS=15, CN II-XII Intact, Speech Normal, Motor Func Grossly Intact, Normal Sensory Function, Normal Cerebellar Funct, Gait Normal Skin: Present: Warm, Dry, Normal Color. No: Rashes Psychiatric: Present: Alert, Oriented x 3, Normal Insight, Normal Concentration, Anxious. No: Agitated, Depressed Mood, Suicidal Ideation, Homicidal Ideation, Delusional, Hallucinations, Intoxicated, Lethargic Medical Decision Making ED Course and Treatment: 06/08/18 08:49 Impression: 37 year old female presents to the ED for evaluation of jerking movements upon waking up since 3 days. Plan: -- EKG -- Labs -- Urinalysis -- Reassess and disposition Prior Visits: Notes and results from previous visits were reviewed. Progress Notes: 06/08/18 08:50 06/08/18 09:32 EKG shows normal sinus rhythm rate approximately [address] or T wave changes. 06/08/18 10:48 Discussed with patient that her workup is unremarkable. I suggested to her that she may need sleep study. She reports that she had a normal sleep study approximately 4 months ago. I also suggested to her that she may need to follow-up with a neurologist to rule out seizures and may need an EEG and MRI. She was agreeable and will call someone from her insurance plan. - Scribe Statement The provider has reviewed the documentation as recorded by the Emilee Nicholas. All medical record entries made by the Gaibpeterson were at my direction and personally dictated by me. I have reviewed the chart and agree that the record accurately reflects my personal performance of the history, physical exam, medical decision making, and the department course for this patient. I have also personally directed, reviewed, and agree with the discharge instructions and disposition. Disposition/Present on Arrival - Present on Arrival Any Indicators Present on Arrival: No History of DVT/PE: Yes History of Uncontrolled Diabetes: No Urinary Catheter: No History of Decub. Ulcer: No History Surgical Site Infection Following: None - Disposition Have Diagnosis and Disposition been Completed?: Yes Diagnosis: Near syncope, Occasional tremors Disposition: HOME/ ROUTINE Disposition Time: 10:49 Patient Plan: Discharge Condition: GOOD Discharge Instructions (ExitCare): Tremor, Near Fainting (DC), Vasovagal Response (DC) Referrals: Naun Goyal MD [Staff Provider] - Follow up with primary Forms: [facility] (Finnish)
[2018-06-08 09:16] LABS: BASO # 0.03 K/mm3 (0.0-2.0); BASO % 0.9 % (0.0-3.0); EOS # 0.1 (0.0-0.7); EOS % 2.6 % (1.5-5.0); HEMOGLOBIN 11.9 g/dL (12.0-16.0); LYMPH % 29.7 % (22.0-35.0); MEAN CELL VOLUME 91.8 fl (80.0-105.0); MEAN CORPUSCULAR HEMOGLOBIN 31.3 pg (25.0-35.0); MEAN CORPUSCULAR HGB CONC 34.1 g/dl (31.0-37.0); MONO # 0.3 (0.1-0.6); RBC 3.8 10^6/uL (3.5-6.1); WHITE BLOOD COUNT 3.4 10^3/uL (4.5-11.0)
[2018-06-08 09:22] LABS: PH,URINE 5.5 (4.7-8.0); URINE BILIRUBIN NEGATIVE (NEGATIVE); URINE BLOOD LARGE (NEGATIVE); URINE GLUCOSE (UA) NEGATIVE (NEGATIVE); URINE LEUKOCYTE ESTERASE SMALL Leu/uL (NEGATIVE); URINE PROTEIN TRACE mg/dL (<30 mg/dL); URINE UROBILINOGEN 0.2 E.U./dL (<1 E.U./dL)
[2018-06-08 09:23] LABS: URINE APPEARANCE CLEAR (CLEAR); URINE COLOR YELLOW (YELLOW)
[2018-06-08 09:24] LABS: INR 1.52; PARTIAL THROMBOPLASTIN TIME 53.1 Seconds (26.9-38.3); PROTHROMBIN TIME 17.2 SECONDS (9.4-12.5)
[2018-06-08 09:31] LABS: URINE BACTERIA MANY /hpf; URINE RBC 25 - 30 /hpf (0-2)
[2018-06-08 09:36] LABS: ALB/GLOB RATIO 1.3 (1.1-1.8); ALBUMIN 4.1 g/dL (3.0-4.8); ALT/SGPT 14 U/L (7-56); AST/SGOT 19 U/L (14-36); BLOOD UREA NITROGEN 9 mg/dL (7-21); GFR NON-AFRICAN AMERICAN > 60
[2018-06-08 09:38] LABS: TROPONIN I < 0.01 ng/mL
[2018-06-08 10:31] VITALS: BP 117/71; PULSE 96
[2018-06-08 10:41] LABS: BARBITURATES, UR NEGATIVE (NEGATIVE); BENZODIAZEPINES, UR NEGATIVE (NEGATIVE); OPIATES, UR NEGATIVE (NEGATIVE); PHENCYCLIDINE, UR NEGATIVE (NEGATIVE)
--- NOTE | 2018-06-08 15:43 | CARD ---
APPROVED REPORT Date of service: 06/08/2018 EKG Measurement Heart [id number] <Conclusion> Normal sinus rhythm with sinus arrhythmia Normal ECG
== END 2018-06-08 11:01 | disposition home or self-care (01) ==
LOC: ED 08:06
DX: R55 Syncope and collapse (principal); R25.1 Tremor, unspecified; R00.0 Tachycardia, unspecified; Z86.711 Personal history of pulmonary embolism

== ENCOUNTER 2018-06-25 08:53 | Emergency (ER) | payer MEDICAID ==
[2018-06-25] MEDS ORDERED: Sodium Chloride 0.9% 1,000 ML IV STA (09:16)
--- NOTE | 2018-06-25 09:17 | ED PDOC ---
Arrival/HPI - General Chief Complaint: Palpitations Time Seen by Provider: 06/25/18 08:56 Historian: Patient - History of Present Illness Narrative History of Present Illness (Text): 06/25/18 09:16 37 year old female, with past medical history of PE on xarelto and migraines, presents to emergency department complaining of elevated heart rate since Friday. Patient reports symptoms are intermittent and have been present for a y ear and a half. She reports she has been experiencing some associated shortness of breath, pressure in chest, and fatigue. Patient notes extended menstrual period due to being on blood thinners. Patient denies any recent stressors as well as any fevers, chills, headache, dizziness, cough, abdominal pain, nausea, vomiting, diarrhea, back pain, neck pain, or any other complaints. Time/Duration: Other (Friday) Symptom Onset: Gradual Symptom Course: Unchanged Activities at Onset: Light Context: Home Past Medical History - Provider Review Nursing Documentation Reviewed: Yes - Infectious Disease Hx of Infectious Diseases: None - Tetanus Immunization Tetanus Immunization: Unknown - Cardiac Hx Cardiac Disorders: Yes (tachycardia) Other/Comment: PE - Pulmonary Hx Respiratory Disorders: Yes Hx Pulmonary Embolism: Yes - Neurological Hx Neurological Disorder: Yes Hx Migraine: Yes - HEENT Hx HEENT Disorder: Yes (wears glasses) - Renal Hx Renal Disorder: No - Endocrine/Metabolic Hx Endocrine Disorders: No - Hematological/Oncological Hx Blood Disorders: No - Integumentary Hx Dermatological Disorder: No - Musculoskeletal/Rheumatological Hx Musculoskeletal Disorders: No Hx Falls: No Hx Unsteady Gait: No - Gastrointestinal Hx Gastrointestinal Disorders: Yes (hernia repair) - Genitourinary/Gynecological Hx Genitourinary Disorders: Yes Hx Urinary Tract Infection: Yes - Psychiatric Hx Psychophysiologic Disorder: No Hx Substance Use: No - Surgical History Other/Comment: umbilicus hernia repair - Anesthesia Hx Anesthesia: Yes Hx Anesthesia Reactions: No Hx Malignant Hyperthermia: No Family/Social History - Physician Review Nursing Documentation Reviewed: Yes Family/Social History: Unknown Family HX Smoking Status: Never Smoked Hx Alcohol Use: No Hx Substance Use: No Allergies/Home Meds Allergies/Adverse Reactions: Allergies ciprofloxacin [From Cipro] Allergy (Verified 04/13/18 16:34) SWELLING metoclopramide [From Reglan] Allergy (Verified 04/13/18 16:34) SWELLING Home Medications: Home Meds Medication Instructions Recorded Confirmed Rivaroxaban [Xarelto] 20 mg PO DAILY 05/14/18 06/25/18 Ergocalciferol [Drisdol 50,000 1 cap PO TUE 06/08/18 06/25/18 Intl Units Cap] Review of Systems - Physician Review All systems were reviewed & negative as marked: Yes - Review of Systems Constitutional: Fatigue. absent: Fevers Respiratory: SOB Cardiovascular: Other (pressure in chest, elevated heart rate ) Gastrointestinal: absent: Abdominal Pain, Diarrhea, Nausea, Vomiting Genitourinary Female: absent: Urine Output Changes Musculoskeletal: absent: Back Pain, Neck Pain Skin: absent: Rash Neurological: absent: Headache, Dizziness Physical Exam Vital Signs Reviewed: Yes Temperature: Afebrile Blood Pressure: Normal Pulse: Tachycardic Respiratory Rate: Normal Appearance: Positive for: Well-Appearing, Non-Toxic, Comfortable Pain Distress: None Mental Status: Positive for: Alert and Oriented X 3 - Systems Exam Head: Present: Atraumatic, Normocephalic Pupils: Present: PERRL Extroacular Muscles: Present: EOMI Conjunctiva: Present: Normal Mouth: Present: Moist Mucous Membranes Neck: Present: Normal Range of Motion Respiratory/Chest: No: Tachypneic Cardiovascular: No: Murmurs Abdomen: No: Tenderness, Distention, Peritoneal Signs Back: Present: Normal Inspection Upper Extremity: Present: Normal Inspection. No: Cyanosis, Edema Lower Extremity: Present: Normal Inspection. No: Edema Neurological: Present: GCS=15, CN II-XII Intact, Speech Normal Skin: Present: Warm, Dry, Normal Color. No: Rashes Psychiatric: Present: Alert, Oriented x 3, Normal Insight, Normal Concentration Medical Decision Making ED Course and Treatment: 06/25/18 09:34 Impression: 37 year old female presents with elevated heart rate and associated shortness of breath and chest pressure since Friday. Differential Diagnosis included but are not limited to: -- arrhythmia -- anxiety Plan: - Labs -- IV Fluids -- Urinalysis -- Reassess and disposition Prior Visits: Notes and results from previous visits were reviewed. Progress Notes: - EKG Interpretation EKG Interpretation (Text): 06/25/18 10:09 EKG: Ordered, reviewed, and independently interpreted the EKG. Rate : 96 BPM Rhythm : NSR Interpretation : No ST-segment elevations, no t wave inversions, no QT prolongation Interpreted by ED Physician: Yes Type: 12 lead EKG - Scribe Statement The provider has reviewed the documentation as recorded by the Scribe Ruiz Merritt All medical record entries made by the Scribe were at my direction and personally dictated by me. I have reviewed the chart and agree that the record accurately reflects my personal performance of the history, physical exam, medical decision making, and the department course for this patient. I have also personally directed, reviewed, and agree with the discharge instructions and disposition. Disposition/Present on Arrival - Present on Arrival Any Indicators Present on Arrival: Yes History of DVT/PE: Yes History of Uncontrolled Diabetes: No Urinary Catheter: No History of Decub. Ulcer: No History Surgical Site Infection Following: None - Disposition Have Diagnosis and Disposition been Completed?: Yes Diagnosis: Tachycardia, Anxiety Disposition: HOME/ ROUTINE Disposition Time: 10:51 Patient Plan: Discharge Condition: IMPROVED Discharge Instructions (ExitCare): Anxiety, Adult (DC), Sinus Tachycardia (DC) Print Language: MALAY Additional Instructions: All medical record entries made by the Scribe were at my direction and personally dictated by me. I have reviewed the chart and agree that the record accurately reflects my personal performance of the history, physical exam, medic al decision making, and the department course for this patient. I have also personally directed, reviewed, and agree with the discharge instructions and disposition. Please continue to see your manager special events for follow up on Friday Referrals: Deborah Oshea MD [Staff Provider] - Follow up with primary Forms: [facility] (Omani), WORK NOTE
[2018-06-25 09:38] VITALS: RESP 18; TEMP 98
[2018-06-25 09:58] LABS: BASO # 0.02 K/mm3 (0.0-2.0); BASO % 0.4 % (0.0-3.0); EOS # 0.1 (0.0-0.7); EOS % 2.5 % (1.5-5.0); HEMOGLOBIN 12.6 g/dL (12.0-16.0); LYMPH # 1.5 (1.2-3.4); LYMPH % 27.9 % (22.0-35.0); MEAN CELL VOLUME 88.2 fl (80.0-105.0); MEAN CORPUSCULAR HEMOGLOBIN 30.4 pg (25.0-35.0); MEAN CORPUSCULAR HGB CONC 34.5 g/dl (31.0-37.0); MONO # 0.4 (0.1-0.6); MONO % 8.2 % (1.0-6.0); RBC 4.14 10^6/uL (3.5-6.1); RED CELL DISTRIBUTION WIDTH 11.9 % (11.5-14.5); WHITE BLOOD COUNT 5.3 10^3/uL (4.5-11.0)
[2018-06-25 10:05] LABS: URINE BILIRUBIN NEGATIVE (NEGATIVE); URINE BLOOD TRACE-INTACT (NEGATIVE); URINE GLUCOSE (UA) NEGATIVE (NEGATIVE); URINE LEUKOCYTE ESTERASE MODERATE Leu/uL (NEGATIVE); URINE PROTEIN NEGATIVE mg/dL (<30 mg/dL); URINE UROBILINOGEN 0.2 E.U./dL (<1 E.U./dL)
[2018-06-25 10:07] LABS: URINE APPEARANCE SL CLOUDY (CLEAR); URINE COLOR YELLOW (YELLOW)
[2018-06-25 10:12] LABS: ALB/GLOB RATIO 1.3 (1.1-1.8); ALBUMIN 4.2 g/dL (3.0-4.8); ALT/SGPT < 6 U/L (7-56); AST/SGOT 22 U/L (14-36); BLOOD UREA NITROGEN 8 mg/dL (7-21); CALCIUM 9.3 mg/dL (8.4-10.5); GFR NON-AFRICAN AMERICAN > 60
[2018-06-25 10:15] LABS: URINE BACTERIA FEW /hpf; URINE RBC 0 - 2 /hpf (0-2)
[2018-06-25 10:16] LABS: BARBITURATES, UR NEGATIVE (NEGATIVE); BENZODIAZEPINES, UR NEGATIVE (NEGATIVE); OPIATES, UR NEGATIVE (NEGATIVE); PHENCYCLIDINE, UR NEGATIVE (NEGATIVE)
[2018-06-25 10:23] LABS: TROPONIN I < 0.01 ng/mL
[2018-06-25 11:14] VITALS: BP 100/62; PULSE 81; O2SAT 100
--- NOTE | 2018-06-25 22:41 | CARD ---
APPROVED REPORT Date of service: 06/25/2018 EKG Measurement Heart [id number] <Conclusion> Normal sinus rhythm with sinus arrhythmia Possible Left atrial enlargement Borderline ECG
== END 2018-06-25 11:14 | disposition home or self-care (01) ==
LOC: ED 08:53
DX: R00.0 Tachycardia, unspecified (principal); F41.9 Anxiety disorder, unspecified; Z86.711 Personal history of pulmonary embolism; Z79.01 Long term (current) use of anticoagulants
CPT/HCPCS: 80053; 80324; 80345; 80346; 80349; 80353; 80358; 80361; 81001; 81025; 83992; 84484; 85025; 87086; 93005; 96360; 99285; J7030